=== PATIENT | female | born 1960 | race Caucasian/White ===

== ENCOUNTER 2023-12-19 16:33 | Observation (INO) ==
--- NOTE | 2023-12-19 17:28 | Emergency Department Note ---
Impression & Plan Abdominal pain, Metastasis from pancreatic cancer ED Provider Note NAME: ADRIANA MONTES DE OCA AGE: 63 SEX: F : 1960 ARRIVES VIA: Ambulance INFORMANT: Patient, ED PROVIDER(S): Anjel Rodriguez DO CHIEF COMPLAINT: Abdominal pain HPI: The patient is a 63-year-old female who presented to the emergency department for an evaluation of abdominal pain. The patient presented from her home in [place]. She has never been to our facility before. Very little history is obtained from the patient. She has been on hospice for metastatic pancreatic cancer over the course the last year. Reportedly she was sent here by her hospice nurse because she has not been receiving appropriate care at home and she needs to be admitted for pain management. The patient states that she does not want any heroic measures and claims that she is a DNR/DNI. The patient denies having any rectal bleeding. She denies having any chest pain but does complain of some shortness of breath. ROS: See above HPI for pertinent positives & negatives. A total of 10 systems reviewed and were otherwise negative. PAST MEDICAL HISTORY: See Below PAST SURGICAL HISTORY: See Below FAMILY HISTORY: See Below SOCIAL HISTORY: See Below HOME MEDICATIONS: See Below ALLERGIES: See Below VITALS: See Below PHYSICAL EXAMINATION: GENERAL: The patient is listless and slow to answer questions. She does not appear to be uncomfortable. EYES: The conjunctivae are clear. The pupils are round and reactive. EARS, NOSE, MOUTH AND THROAT: The nose is without any evidence of any deformity. Mucous membranes are dry. NECK: The neck is nontender and supple. RESPIRATORY: Diminished breath sounds are noted throughout. There is no tachypnea or conversational dyspnea. CARDIOVASCULAR: Tachycardic and regular heart sounds were noted to auscultation. There is no definite murmur. GASTROINTESTINAL: The abdomen is soft and mildly distended. There is diffuse tenderness to palpation but no guarding or rigidity. MUSCULOSKELETAL/EXTREMITIES: There is no evidence of gross deformity full range of motion is noted in the hips and shoulders. SKIN: Skin is warm. There is no significant pedal edema. NEUROLOGIC: Patient is awake and oriented to person place and situation. Strength was diminished. MEDICAL DECISION MAKING: The patient is a 63-year-old female who has a history of metastatic pancreatic cancer who presented to the emergency department for an evaluation of chronic abdominal pain. The patient has not been here before. History was very limited. She was sent here by [facility] hospice. It sounds that the patient's pain was difficult to manage. I discussed the patient's condition with the on-call [facility] hospitalist. The patient was treated with pain medication in emergency department. EKG appears to be consistent with sinus tachycardia but could be atrial flutter. I gave a dose of Cardizem to see if this would help. It did help the patient's blood pressure but her rhythm remains the same. I will defer further management of this to the admitting team. Triage Nursing notes reviewed. Prior medical records reviewed Vital Signs: reviewed and remarkable for elevated blood pressure and tachycardia. Differential diagnosis: Etiologies such as appendicitis, diverticulitis, obstruction, inflammatory bowel disease, renal colic, PUD, biliary pathology, pancreatitis, mesenteric ischemia, aortic pathology, infections, genitourinary, UTI, perforated viscus, as well as others were entertained. ER treatment provided: See below Diagnostics interpreted by me: ECG: EKG was obtained in the emergency department. My interpretation is sinus tachycardia at 143 bpm. There was no ectopy. Nonspecific ST and T wave abnormalities were noted. No previous tracing was available. Cardiac Monitoring: An order was placed for continuous cardiac monitoring. The monitor shows a rate of 142 bpm with sinus tachycardia. Laboratory studies: As stated above and show below. Imaging studies: See below. Radiographic imaging was reviewed by myself Consultation(s): I discussed this case with Dr. Potter. Past Med/Surg History Problem List (Updated 12/19/23 @ 18:32 by Anjel Rodriguez DO) Metastasis from pancreatic cancer (Acute) Abdominal pain (Acute) Medical History Pancreatic cancer Metastasis from pancreatic cancer Social History Smoking Status: Never smoker Tobacco Type: Cigarettes and E-cigarettes / Vaping Feels Safe at Home: Yes Results & Data (ED) Vital Signs Vital Signs - 24 hr 12/19/23 16:44 12/19/23 16:51 12/19/23 17:21 Temperature 36.8 C Temperature Source Oral Pulse Rate 116 H 143 H Pulse Rate [Apical] 111 H Respiratory Rate 20 24 Respiratory Effort / Characteristics Non-Labored Spontaneous Respiratory Depth Normal Normal Respiratory Pattern Regular Blood Pressure 168/116 H Blood Pressure [Left Arm] 168/116 H Blood Pressure Mean 133 Blood Pressure Mean [Left Arm] 133 Pulse Oximetry 97 99 Oxygen Delivery Method Room Air Nasal Cannula Oxygen Flow Rate 4 Sepsis Recent Fever Within 48 Hours No Sepsis New/Unexplained Change in Mental Status N/A Sepsis Action Taken by Nursing No Action Required Home Medications Current Medication List: was personally reviewed by me Administered Medications Hydromorphone HCl (Hydromorphone Inj 0.5 Mg/0.5 Ml Syr) 0.5 mg IV Q15M PRN PRN Reason: Pain Stop: 01/02/24 17:25 Last Admin: 12/19/23 18:30 Dose: 0.5 mg Documented By: ALEXEY Discontinued Medications Ondansetron HCl (Ondansetron Inj 2 Mg/Ml 2 Ml Vial) 4 mg IV NOW STA Stop: 12/19/23 17:27 Last Admin: 12/19/23 18:30 Dose: 4 mg Documented By: ALEXEY Imaging Data Attestation: I personally reviewed and interpreted this imaging study as follows: My Impression: 1 view x-ray was obtained in the emergency department. My interpretation is small left pleural effusion, final report below. Radiologist's Impression: Chest X-Ray 12/19/23 17:26 XR chest 1V portable HISTORY: Shortness of breath. COMPARISON: None. FINDINGS: No pneumothorax. There is a left jugular Port-A-Cath which terminates in the SVC. The heart is borderline enlarged. There is a small left pleural effusion and left base airspace opacities. The right lung is clear. No evidence for pulmonary edema. A drainage catheter within the left upper quadrant is noted. Bilateral total shoulder arthroplasties are present. Lucency within the upper abdomen likely represents the normal bowel loops. This will be better assessed on the same day abdomen and pelvis CT. IMPRESSION: 1. Small left pleural effusion with left basilar airspace opacities. This could represent atelectasis or a pneumonia. 2. Lucency within the upper abdomen likely represents the normal bowel loops. This will be better assessed on the same day abdomen and pelvis CT. ACT 112: Negative or not required by law. Electronically signed by: Madi Ghosh M.D. 12/19/2023 6:20 PM Discharge Plan Visit Data Chief Complaint: Abdominal Pain Stated Complaint: DECLINE IN HEALTH, COMFORT MEASURES ED Provider: Anjel Rodriguez Discharge Problem: Abdominal pain, Metastasis from pancreatic cancer Patient Disposition: Being Evaluated by Hospitalist Forms Stand Alone Forms: [facility] Referrals Referrals: PCP,NO [Physician] - Discharge Problem: Abdominal pain Qualifiers: Abdominal location: unspecified location Qualified Code(s): R10.9 - Unspecified abdominal pain
--- NOTE | 2023-12-19 18:21 | XRay Report ---
XR chest 1V portable HISTORY: Shortness of breath. COMPARISON: None. FINDINGS: No pneumothorax. There is a left jugular Port-A-Cath which terminates in the SVC. The heart is borderline enlarged. There is a small left pleural effusion and left base airspace opacities. The right lung is clear. No evidence for pulmonary edema. A drainage catheter within the left upper quad rant is noted. Bilateral total shoulder arthroplasties are present. Lucency within the upper abdomen likely represents the normal bowel loops. This will be better assessed on the same day abdomen and pe lvis CT. IMPRESSION: 1. Small left pleural effusion with left basilar airspace opacities. This could represent atelectasis or a pneumonia. 2. Lucency within the upper abdomen likely represents the normal bowel loops. This will be better ass essed on the same day abdomen and pelvis CT. ACT 112: Negative or not required by law. Electronically signed by: Madi Ghosh M.D. 12/19/2023 6:20 PM
--- NOTE | 2023-12-19 18:22 | History & Physical Report ---
Date of Service December 19, 2023 Assessment & Plan (1) Pancreatic cancer: Plan: diagnosed about 1 year ago - was previously on chemotherapy - percutaneous tube placed 3-4 weeks ago for drainage of pancreatic cancer cyst home medications for pain/nausea management include the following: - dilaudid 4mg q2 - fentanyl patch 50mcg q72h - zofran 8mg TID prn - Haldol 1mg q4 prn if zofran not effective for nausea Patient here as a comfort admit - continue pain, nausea, and diarrhea medications as needed - continuing BP, cardiac, and COPD meds for now for pt's comfort Pastoral care ordered. Plan to reach out to Dr. Rojas Garcia, pt's PCP, to update him on pt's condition and situation. (2) Metastasis from pancreatic cancer: Plan: see above (3) COPD (chronic obstructive pulmonary disease): Plan: 50-year cigarette smoking history up to present home meds include: - DuoNebs 3mL QID - dexamethasone 2mg QD - Flonase 1 spray QD - Stiolto Respimat (tiotropium bromide - olodaterol) 2.5mcg-2.5mcg, 2 puffs daily (4) History of MT (myocardial infarction): Plan: first in 2019, stent placed - second in 2022, 4 additional stents placed per patient history home meds include: - rosuvastatin 20mg QD - discontinuing - carvedilol 3.125mg BID - isosorbide mononitrate ER 30mg QD - ranolazine ER 500mg BID - losartan 25mg QD (5) Diarrhea: Plan: home meds include: - miralax 17mg QD - milk of magnesia 5mL prn - hyoscyamine 0.125mg q4 - senna 17.2mg QD (6) Cancer related pain: (7) Admission for hospice care: Plan code status: DNR/DNI VTE prophylaxis: none per hospice and comfort admit status labs: not ordering per hospice and comfort admit status diet: regular, soft and bite-sized output: purewick for urine, diaper for BM dispo: TBD History of Present Illness Chief Complaint: abdominal pain Primary Care Provider: MD Aliyah Mason, preferred name "LINK", is a 63yo female with history of pancreatic cancer on home hospice, past MT, and COPD who was taken here BIBEMS called by hospice nurse out of concern that pt is not receiving adequate pain meds or care at home. States she has two daughters but one is currently in [place] and the other lives in [place], patient was not willing to provide their contact information at this time. Pt receives hosp[facility] care from [facility]. States no one comes to visit her at home anymore, and the last time she had a meal was a day and a half ago. Endorses her appetite has been down for months but feels like she may be able to eat something tonight. Endorses she was diagnosed with pancreatic cancer about a year ago and was previously on chemotherapy, unable to recall any drug names. Notes she also had a "pancreatic cancer cyst" for which a drain in her abdomen was placed about 3-4 weeks ago. States she had a heart attack in 2020 in which a stent was placed, and then again in 2022 in which 4 more stents were placed. Patient was seen and examined at bedside, appearing tired with eyes nearly closed, and uncomfortable with intermittent moaning. Prefers to have lights dim due to light sensitivity. BP and heart rate elevated, other vital signs WNL, on 10L/min via neb. Patient was alert and oriented to name, date of , place "[facility]", and time of year "November." Patient was able to open her eyes on command, fair eye contact, able to track movement well with her eyes. Endorses abdominal pain and lower back pain, as well as shortness of breath but not more than usual for her. Also notes feeling cold despite being bundled up in blankets States her last bowel movement was yesterday, soft but not diarrhea, denies blood. Endorses she is able to urinate without issue. Able to ambulate on her own. Denies any recent fever, current headache, dizziness, nausea, recent vomiting, cough, chest pain, diarrhea, constipation. Allergies Allergy/AdvReac Type Severity Reaction Status Date / Time aripiprazole Allergy Unknown Verified 12/19/23 20:06 atorvastatin Allergy Unknown Verified 12/19/23 20:06 diazepam Allergy Unknown Verified 12/19/23 20:06 duloxetine [From Cymbalta] Allergy Unknown Verified 12/19/23 20:07 fluoxetine Allergy Unknown Verified 12/19/23 20:06 latex Allergy Unknown Verified 12/19/23 20:06 montelukast Allergy Unknown Verified 12/19/23 20:06 nickel Allergy Unknown Verified 12/19/23 20:06 paroxetine Allergy Unknown Verified 12/19/23 20:06 sertraline Allergy Unknown Verified 12/19/23 20:06 thyroid, pork Allergy Unknown Verified 12/19/23 20:06 varenicline [From Chantix] Allergy Unknown Verified 12/19/23 20:07 Home Medications Medication Instructions Recorded Confirmed Type albuterol sulfate 2.5 mg/3 mL 2.5 mg Q4H 12/19/23 12/19/23 History (0.083 %) solution for nebulization albuterol sulfate 90 mcg/actuation 2 puff inhalation Q4H 12/19/23 12/19/23 History aerosol inhaler carvedilol 3.125 mg tablet 3.125 mg BIDM 12/19/23 12/19/23 History dexamethasone 2 mg tablet 2 mg PO QAM 12/19/23 12/19/23 History fentanyl 50 mcg/hr transdermal 50 mcg transdermal Q72H 12/19/23 12/19/23 History patch haloperidol lactate 2 mg/mL oral 1 mg Q4H 12/19/23 12/19/23 History concentrate hydromorphone 4 mg tablet 4 mg Q2H PRN Pain 12/19/23 12/19/23 History hyoscyamine sulfate 0.125 mg tablet 0.125 mg sublingual Q4H PRN 12/19/23 12/19/23 History Diarrhea lorazepam 1 mg tablet 0.5 mg Q4H PRN 12/19/23 12/19/23 History restlessness/insomnia losartan 25 mg tablet 25 mg QAM 12/19/23 12/19/23 History magnesium hydroxide 400 mg/5 mL 30 ml PO DAILY PRN severe 12/19/23 12/19/23 History oral suspension (Milk of Magnesia) constipation ondansetron HCl 8 mg tablet 8 mg BIDWMEAL 12/19/23 12/19/23 History ranolazine 500 mg tablet,extended 500 mg PO BID 12/19/23 12/19/23 History release,12 hr rosuvastatin 20 mg tablet 20 mg DAILY 12/19/23 12/19/23 History sennosides 8.6 mg-docusate sodium 2 tab PO BID PRN Constipation 12/19/23 12/19/23 History 50 mg tablet (Stimulant Laxative Plus) tiotropium 2.5 mcg-olodaterol 2.5 2 puff inhalation DAILY 12/19/23 12/19/23 History mcg/actuation mist for inhalation (Stiolto Respimat) Past Med/Surg History Problem List (Updated 12/20/23 @ 11:19 by Peter Potter MD) Admission for hospice care Cancer related pain Hyperlipidemia Diarrhea History of MT (myocardial infarction) COPD (chronic obstructive pulmonary disease) Metastasis from pancreatic cancer (Acute) Abdominal pain (Acute) Medical History (Updated 12/20/23 @ 11:19 by Peter Potter MD) Hepatitis C Hepatitis B Arthritis Bipolar disorder Anemia Peritoneal abscess Pancreatic cancer Metastasis from pancreatic cancer Surgical History (Updated 12/19/23 @ 21:45 by Jasen Burris DO) H/O: hysterectomy H/O section x2 Social History (Updated 12/19/23 @ 19:35 by Jasen Burris DO) Smoking Status: Smoker, status unknown Tobacco Type: Cigarettes and E-cigarettes / Vaping Preferred Language: Czech Communication Ability: Effective Food Expeditor Required: No Beliefs That Will Affect Care: None Current Living Situation: Alone Feels Safe at Home: Yes Review of Systems Review of Systems: per HPI Physical Exam Physical Exam: constitutional: A&Ox3, appearing in moderate distress and tired HEENT: anicteric sclerae, EOM intact cardiovascular: tachycardic regular rhythm, no murmurs heard on auscultation pulmonary: generalized wheezing and coarse breath sounds, mild crackles in left lower lung base GI: medial LUQ abdominal tube with bag, draining brown fluid; hyperactive bowel sounds, tender to palpation of RUQ, epigastric region, LUQ, and LLQ; no guarding or rebound, negative Mayes's sign skin: no rashes or lesions on inspection neuro/MSK: strength 5/5 all extremities, no extremity sensation deficits Results & Data Results & Data Vital Signs (Past 12 Hours) Vital Signs Temp Pulse Pulse Resp BP BP Pulse Ox 12/19/23 17:21 143 H 12/19/23 16:51 111 H 24 168/116 H 99 12/19/23 16:44 36.8 C 116 H 20 168/116 H 97 O2 Del Method O2 Flow Rate 12/19/23 17:21 12/19/23 16:51 Nasal Cannula 4 12/19/23 16:44 Room Air Laboratory Results none to report Diagnostic Findings Chest X-Ray 12/19/23 17:26 HISTORY: Shortness of breath. COMPARISON: None. FINDINGS: No pneumothorax. There is a left jugular Port-A-Cath which terminates in the SVC. The heart is borderline enlarged. There is a small left pleural effusion and left base airspace opacities. The right lung is clear. No evidence for pulmonary edema. A drainage catheter within the left upper quadrant is noted. Bilateral total shoulder arthroplasties are present. Lucency within the upper abdomen likely represents the normal bowel loops. This will be better assessed on the same day abdomen and pelvis CT. IMPRESSION: 1. Small left pleural effusion with left basilar airspace opacities. This could represent atelectasis or a pneumonia. 2. Lucency within the upper abdomen likely represents the normal bowel loops. This will be better assessed on the same day abdomen and pelvis CT. Medications Administered Hydromorphone HCl (Hydromorphone Inj 0.5 Mg/0.5 Ml Syr) 0.5 mg IV Q15M PRN PRN Reason: Pain Stop: 01/02/24 17:25 Last Admin: 12/19/23 21:11 Dose: 0.5 mg Documented By: Admin: 12/19/23 18:30 Dose: 0.5 mg Documented By: ALEXEY Zofran 4mg IV, 18:30 NS bolus, 18:45 diltiazem 10mg IV, 18:45 Albuterol 3mL 21:12 Code Status & VTE Plan Code Status DNR/DNI VTE Prophylaxis Plan VTE Prophylaxis will be ordered: No Reason for no VTE drug order: Treatment not indicated Reason for no VTE mechanical prophylaxis: Treatment not indicated Supervising Physician Co-Signing Physician Notes I personally saw and examined the patient. I independently reviewed the labs, imaging, problem list, medication list, past medical history and family history. I verified all pak points and agree with resident physician Dr Jasen Burris, with the following exceptions and/or additions: 63 year old female presents to the ER via EMS sent in by hospice for hospice admission for pain control as unable to get this under control at home despite Fentanyl patch and hydromorphone PO. On discussion with the hospice nurse over the phone he is unsure why she was sent here rather than [place] were she has had all of her care. O/E HS tachycardic, regular rhythm, Chest CTAB, generalized abdominal pain on palpation with distended abdomen A/P Cancer related pain and admission for hospice care - discussed with hospice nurse, patient and her daughter (Maria G) over the phone regarding goals and plan is for comfort care only, no investigations or labs. Consult palliative. Start Dilaudid [employer] pump. Other comfort care orders for nausea, agitation as above Resident Activity Tracking Resident Involvement: Resident Care Provided Care Provided: Adult [facility] Medicine (1) Pancreatic cancer Pancreatic malignancy location: unspecified Qualified Code(s): C25.9 - Malignant neoplasm of pancreas, unspecified (3) COPD (chronic obstructive pulmonary disease) COPD type: unspecified COPD Qualified Code(s): J44.9 - Chronic obstructive pulmonary disease, unspecified (5) Diarrhea Diarrhea type: unspecified type Qualified Code(s): R19.7 - Diarrhea, unspecified
[2023-12-19] MEDS: ONDANSETRON INJ 2 MG/ML 2 ML VIAL IV STA (18:30)
[2023-12-19] MEDS: HYDROmorphone INJ 0.5 MG/0.5 ML SYR IV PRN (18:30)
[2023-12-19] MEDS: SODIUM CHLORIDE 0.9% 1,000 ML IV STA (18:46)
[2023-12-19] MEDS: dilTIAZem HCl 5 MG/ML 5 ML VIAL IV STA (18:46)
[2023-12-19] MEDS ORDERED: ONDANSETRON INJ 2 MG/ML 2 ML VIAL IV PRN (20:26)
[2023-12-19] MEDS ORDERED: PROMETHAZINE HCL 25 MG TAB PO PRN (20:26)
[2023-12-19] MEDS ORDERED: HALOPERIDOL ORAL SOLN 2 MG/ML PO PRN (20:26)
[2023-12-19] MEDS ORDERED: HYOSCYAMINE SULFATE 0.125 MG TAB SL PRN ×2 (20:26→21:27)
[2023-12-19] MEDS: ALBUT/IPRATROP 3MG/0.5MG NEB 3 ML VIAL NEB STA (21:12)
[2023-12-19] MEDS ORDERED: DOCUSATE SODIUM/SENNA 50/8.6MG TAB PO PRN (21:27)
[2023-12-19] MEDS ORDERED: LORazepam 0.5 MG TAB PO PRN (21:27)
[2023-12-19] MEDS ORDERED: MAGNESIUM HYDROXIDE SUSP 30 ML UDC PO PRN (21:27)
[2023-12-19] MEDS ORDERED: HALOPERIDOL ORAL SOLN 2 MG/ML PO SCH (21:30)
[2023-12-19] MEDS: LORazepam 0.5 MG TAB PO PRN (23:45)
[2023-12-20] MEDS: HYDROmorphone INJ 0.5 MG/0.5 ML SYR IV PRN (00:12)
[2023-12-20] MEDS: ALBUTEROL 0.083% NEBU SOLN 3 ML VIAL NEB SCH (00:49)
[2023-12-20] MEDS ORDERED: MAGNESIUM HYDROXIDE SUSP 30 ML UDC PO PRN (00:54)
[2023-12-20] MEDS ORDERED: ACETAMINOPHEN 325 MG TAB PO PRN (00:54)
[2023-12-20] MEDS ORDERED: POLYETHYLENE (MIRALAX) 17 GM PACK PO PRN (00:54)
[2023-12-20] MEDS: HYDROmorphone/NSS 100 MG/100 ML BAG IV SCH (01:02)
[2023-12-20] MEDS: fentaNYL 50 MCG/HR TDSY TD ONE (01:02)
[2023-12-20 03:51] VITALS: TEMP 97.5
[2023-12-20 03:58] VITALS: RESP 18
[2023-12-20 07:24] VITALS: BP 130/91
[2023-12-20] MEDS: HYDROmorphone BOLUS from BAG IV PRN (07:30)
[2023-12-20] MEDS: CHECK fentaNYL PATCH PLACEMENT SCH (08:25)
[2023-12-20] MEDS: UMECLIDINIUM/VILANTEROL 62.5/25MCG 7 PUFFS/INHALER INH SCH (08:26)
[2023-12-20] MEDS: carvediloL 3.125 MG TAB PO SCH (08:27)
[2023-12-20] MEDS: dexAMETHasone 1 MG TAB PO SCH (08:27)
[2023-12-20] MEDS: RANOLAZINE 500 MG ER TAB PO SCH (08:27)
[2023-12-20] MEDS: LOSARTAN POTASSIUM 25 MG TAB PO SCH (08:27)
[2023-12-20] MEDS ORDERED: ROSUVASTATIN CALCIUM 20 MG TAB PO SCH (09:00)
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
--- NOTE | 2023-12-20 11:26 | Billing Data ---
Date of Service December 19, 2023 Coding Level of Care Code 49141 INT INP/OBS CARE
--- NOTE | 2023-12-20 12:16 | Electrocardiogram Report ---
Test Reason : Blood Pressure : */* mmHG Vent. Rate : 143 BPM Atrial Rate : 143 BPM P-R Int : 118 ms QRS Dur : 102 ms QT Int : 264 ms P-R-T Axes : 81 37 90 degrees QTcB Int : 407 ms Atrial flutter with 2 to 1 block Nonspecific T wave abnormality Abnormal ECG No previous ECGs available Confirmed by Aubrey Anderson ([id number]) on 12/20/2023 12:15:35 PM Referred By: REFERRED SELF Confirmed By: Aubrey Anderson
--- NOTE | 2023-12-20 13:46 | Hospitalist Progress Note ---
Date of Service December 20, 2023 Assessment & Plan (1) Pancreatic cancer: (2) Metastasis from pancreatic cancer: Plan: see above (3) COPD (chronic obstructive pulmonary disease): (4) History of AK (myocardial infarction): (5) Diarrhea: Plan 63 year old female presents to the ER via EMS sent in by hospice for hospice admission for pain control as unable to get this under control at home despite Fentanyl patch and hydromorphone PO. Referred here by Dr. Hoffmann since she lives alone and has no local support and concern about not able to care for self in regards to medication self dispensing. Cancer related pain and admission for hospice care - Dr. Potter discussed with hospice nurse, patient and her daughter (Maria G) over the phone regarding goals and plan is for comfort care only, no investigations or labs. -Continue dilaudid pump. Continue home fentanyl patch 50mcg. -Palliative consulted - will follow recommendations. -continue zofran 8mgs TID prn for nausea, Haldol 1mg prn if zofran not effective. -Continue miralax 17mg QD; milk of magnesia 5mL prn; hyoscyamine 0.125mg q4; senna 17.2mg QD -Will discuss with palliative care regarding d/cing dexamethasone 2mg QD Pancreatic ca diagnosed about 1 year ago -was previously on chemotherapy -percutaneous tube placed 3-4 weeks ago for drainage of pancreatic cancer cyst COPD/AR - DuoNebs 3mL QID - Flonase 1 spray QD - Stiolto Respimat (tiotropium bromide - olodaterol) 2.5mcg-2.5mcg, 2 puffs daily CAD/AK -Will discuss with palliative care team regarding discontinuing home meds carvedilol 3.125mg BID, ranolazine ER 500mg BID, losartan 25mg QD diet: regular, soft and bite-sized output: purewick for urine, diaper for BM Admission and Anticipated Discharge Date Admission Date: December 19, 2023 Subjective Seen this am. Reporting 8/10 pain. Per nursing hasn't slept at all Hungry this am and food order - Tray brought into the room and she was starting to eat at the time of my visit. Physical Exam Physical Exam: In bed. AAOx3; No resp distress. Eating her meal and conversing appropriately. Results & Data Results & Data Vital Signs (Past 12 Hours) Vital Signs Pulse Resp BP Pulse Ox O2 Del Method O2 Flow Rate 12/20/23 11:25 142 H 18 93 Room Air 12/20/23 07:30 Nasal Cannula 4 12/20/23 07:22 151 H 130/91 99 Nasal Cannula 4 12/20/23 04:05 Nasal Cannula 4 12/20/23 03:57 18 100 Nasal Cannula 5 (1) Pancreatic cancer Pancreatic malignancy location: unspecified Qualified Code(s): C25.9 - Mal[place] nant neoplasm of pancreas, unspecified (3) COPD (chronic obstructive pulmonary disease) COPD type: unspecified COPD Qualified Code(s): J44.9 - Chronic obstructive pulmonary disease, unspecified (5) Diarrhea Diarrhea type: unspecified type Qualified Code(s): R19.7 - Diarrhea, unspecified
[2023-12-20 14:37] VITALS: PULSE 100; O2SAT 94
[2023-12-20] MEDS ORDERED: HALOPERIDOL ORAL SOLN 2 MG/ML PO PRN (14:40)
[2023-12-20] MEDS ORDERED: HYDROmorphone BOLUS from BAG IV PRN (14:40)
--- NOTE | 2023-12-20 15:01 | Discharge Summary ---
Date of Service December 20, 2023 Admission HPI Per Admitting Provider Aliyah Lewis, preferred name "LINK", is a 63yo female with history of pancreatic cancer on home hospice, past OK, and COPD who was taken here BIBEMS called by hospice nurse out of concern that pt is not receiving adequate pain meds or care at home. States she has two daughters but one is currently in [place] and the other lives in [place], patient was not willing to provide their contact information at this time. Pt receives hospice care from [facility]. States no one comes to visit her at home anymore, and the last time she had a meal was a day and a half ago. Endorses her appetite has been down for months but feels like she may be able to eat something tonight. Endorses she was diagnosed with pancreatic cancer about a year ago and was previously on chemotherapy, unable to recall any drug names. Notes she also had a "pancreatic cancer cyst" for which a drain in her abdomen was placed about 3-4 weeks ago. States she had a heart attack in 2020 in which a stent was placed, and then again in 2022 in which 4 more stents were placed. Patient was seen and examined at bedside, appearing tired with eyes nearly closed, and uncomfortable with intermittent moaning. Prefers to have lights dim due to light sensitivity. BP and heart rate elevated, other vital signs WNL, on 10L/min via neb. Patient was alert and oriented to name, date of , place "[facility]", and time of year "November." Patient was able to open her eyes on command, fair eye contact, able to track movement well with her eyes. Endorses abdominal pain and lower back pain, as well as shortness of breath but not more than usual for her. Also notes feeling cold despite being bundled up in blankets States her last bowel movement was yesterday, soft but not diarrhea, denies blood. Endorses she is able to urinate without issue. Able to ambulate on her own. Denies any recent fever, current headache, dizziness, nausea, recent vomiting, cough, chest pain, diarrhea, constipation. Principal Diagnosis Pancreatic cancer Intractable uncontrolled pain Discharge Exam In bed. AAOx3; No resp distress. Eating her meal and conversing appropriately. Discharge Data Allergies Allergy/AdvReac Type Severity Reaction Status Date / Time aripiprazole Allergy Unknown Verified 12/19/23 20:06 atorvastatin Allergy Unknown Verified 12/19/23 20:06 diazepam Allergy Unknown Verified 12/19/23 20:06 duloxetine [From Cymbalta] Allergy Unknown Verified 12/19/23 20:07 fluoxetine Allergy Unknown Verified 12/19/23 20:06 latex Allergy Unknown Verified 12/19/23 20:06 montelukast Allergy Unknown Verified 12/19/23 20:06 nickel Allergy Unknown Verified 12/19/23 20:06 paroxetine Allergy Unknown Verified 12/19/23 20:06 sertraline Allergy Unknown Verified 12/19/23 20:06 thyroid, pork Allergy Unknown Verified 12/19/23 20:06 varenicline [From Chantix] Allergy Unknown Verified 12/19/23 20:07 Consultations 12/19/23 17:56 ED Decision to Admit Stat 12/20/23 00:54 Consult Palliative Care Routine Hospital Course (1) Pancreatic cancer: (2) Metastasis from pancreatic cancer: (3) COPD (chronic obstructive pulmonary disease): (4) History of OK (myocardial infarction): (5) Diarrhea: Plan 63 y/o (Goes by [facility]) presents to the ER via EMS sent in by hospice for hospice admission for pain control as unable to get this under control at home despite Fentanyl patch and hydromorphone PO. Referred here by Dr. Hoffmann since she lives alone and has no local support and concern about not able to care for self in regards to medication self dispensing. Cancer related pain and admission for hospice care - Dr. Potter discussed with hospice nurse, patient and her daughter (Maria G) over the phone regarding goals and plan is for comfort care only, no investigations or labs. -Continue dilaudid pump. Continue home fentanyl patch 50mcg. -continue zofran 8mgs TID prn for nausea, Haldol 1mg prn if zofran not effective. -Continue miralax 17mg QD; milk of magnesia 5mL prn; hyoscyamine 0.125mg q4; senna 17.2mg QD -Palliative consulted - discussed and discussed with case management - will discharge from inpatient service and admit to inpatient hospice service. -Dilaudid drip dose increased to 2.3 - will resume this dose with GIP admit. Pancreatic ca diagnosed about 1 year ago -was previously on chemotherapy -percutaneous tube placed 3-4 weeks ago for drainage of pancreatic cancer cyst COPD/AR - DuoNebs 3mL QID - Flonase 1 spray QD - Stiolto Respimat (tiotropium bromide - olodaterol) 2.5mcg-2.5mcg, 2 puffs daily CAD/OK -continue home meds carvedilol 3.125mg BID, ranolazine ER 500mg BID, losartan 25mg QD diet: regular, soft and bite-sized output: purewick for urine, diaper for BM Total Time Total Time Spent Total Time Spent (In Minutes): 30 Discharge Plan Discharge Items Patient Disposition: Transfer Acute Care Hospital Reason For Visit: PANCREATIC CANCER,INADEQUATE PAIN MANAGEMENT AT HO Discharge Diagnosis: Pancreatic cancer, uncontrolled pain Activity: Resume your previous activity Non-emergency contact: Primary Care Provider Call non-emergency contact if: you have any medication questions Follow-up/Referrals: Rojas Garcia MD [Primary Care Provider] - Diet: Regular Addtl Attending Provider Instructions: Discharging from inpatient service to admit to General Inpatient Hospice service. Pending Studies at Discharge: No Stand-Alone Forms: [employer] Skilled Items Patient informed of condition?: Yes DNR: Yes Discharge Level of Care: Other Communicable Disease: No Discharge Prognosis: Deteriorating Lines: Peripheral IV Urinary Catheter: No Medications and DC Order Prescriptions: Continued fentanyl 50 mcg/hr patch 72 hour 50 mcg transdermal Q72H albuterol sulfate 2.5 mg /3 mL (0.083 %) solution for nebulization 2.5 mg Q4H ondansetron HCl 8 mg tablet 8 mg BIDWMEAL sennosides-docusate sodium [Stimulant Laxative Plus] 8.6-50 mg tablet 2 tab PO BID PRN (Reason: Constipation) carvedilol 3.125 mg tablet 3.125 mg BIDM magnesium hydroxide [Milk of Magnesia] 400 mg/5 mL suspension 30 ml PO DAILY PRN (Reason: severe constipation) hyoscyamine sulfate 0.125 mg tablet 0.125 mg sublingual Q4H PRN (Reason: Diarrhea) losartan 25 mg tablet 25 mg QAM lorazepam 1 mg tablet 0.5 mg Q4H PRN (Reason: restlessness/insomnia) albuterol sulfate 90 mcg/actuation HFA aerosol inhaler 2 puff INHALATION Q4H hydromorphone 4 mg tablet 4 mg Q2H PRN (Reason: Pain) haloperidol lactate 2 mg/mL concentrate 1 mg Q4H ranolazine 500 mg tablet extended release 12 hr 500 mg PO BID Stiolto Respimat 2.5-2.5 mcg/actuation mist 2 puff INHALATION DAILY dexamethasone 2 mg tablet 2 mg PO QAM Discontinued rosuvastatin 20 mg tablet 20 mg DAILY Discharge Orders: Discharge Order (Routine); Ordered 12/20/23 Ordered By: Mile Valle Admission Data Admit Date/Time: 12/19/23 20:03 Attending Provider: Mile Valle Admit Provider: Jasen Burris V. Primary Care Provider: Rojas Garcia Other Providers: Peter Potter; Kristyn Marks
[2023-12-22] MEDS ORDERED: fentaNYL 50 MCG/HR TDSY TD SCH (21:00)
== END 2023-12-20 16:02 | disposition hospice, inpatient (51) ==
LOC: SUATTDRO → ED 16:33 → 3E 20:03 → INTOOBSV 20:03 → SUATTDRO 20:03 → 3E 12-20 00:08

== ENCOUNTER 2023-12-20 15:30 | Inpatient (IN) ==
[2023-12-20] MEDS ORDERED: ALUMINUM/MAGNESIUM SUSP 30 ML UDC PO PRN (15:56)
[2023-12-20] MEDS ORDERED: HYOSCYAMINE SULFATE 0.125 MG TAB SL PRN (16:06)
[2023-12-20] MEDS ORDERED: MAGNESIUM HYDROXIDE SUSP 30 ML UDC PO PRN (16:06)
[2023-12-20] MEDS ORDERED: HYDROmorphone BOLUS from BAG IV PRN (16:10)
--- NOTE | 2023-12-20 16:21 | History & Physical Report ---
Date of Service December 20, 2023 Assessment & Plan (1) Admission for hospice care: (2) Cancer related pain: (3) Metastasis from pancreatic cancer: (4) Abdominal pain: (5) COPD (chronic obstructive pulmonary disease): (6) History of [place] (myocardial infarction): (7) Bipolar disorder: Plan 63 y/o (Goes by [facility]INK) presents to the ER via EMS sent in by hospice for hospice admission for pain control as unable to get this under control at home despite Fentanyl patch and hydromorphone PO. Referred here by Dr. Hoffmann since she lives alone and has no local support and concern about not able to care for self in regards to medication self dispensing. Cancer related pain and admission for hospice care - -Continue dilaudid pump. Continue home fentanyl patch 50mcg. -continue zofran 8mgs TID prn for nausea, Haldol 1mg prn if zofran not effective. -Continue miralax 17mg QD; milk of magnesia 5mL prn; hyoscyamine 0.125mg q4; senna 17.2mg QD -Palliative consulted -Continue Dilaudid drip at 2.3. Pancreatic ca diagnosed about 1 year ago -was previously on chemotherapy -percutaneous tube placed 3-4 weeks ago for drainage of pancreatic cancer cyst COPD/AR -DuoNebs 3mL QID -Flonase 1 spray QD -Stiolto Respimat (tiotropium bromide - olodaterol) 2.5mcg-2.5mcg, 2 puffs daily CAD/[place] -continue home meds carvedilol 3.125mg BID, ranolazine ER 500mg BID, losartan 25mg QD Bipolar ds - listed in problem list. Not on any mood stabilizer. Follow. diet: regular, soft and bite-sized output: purewick for urine, diaper for BM Admission and Anticipated Discharge Date Admission Date: December 20, 2023 History of Present Illness Chief Complaint: Intractable pain Primary Care Provider: Rojas Garcia MD 63 y/o (Goes by [facility]) presents to the ER via EMS sent in by hospice for hospice admission for pain control as unable to get this under control at home despite Fentanyl patch and hydromorphone PO. Referred here by Dr. Hoffmann since she lives alone and has no local support and concern about not able to care for self in regards to medication self dispensing. Please refer to detailed HPI from inpatient admission 12/18 below- Aliyah Lewis, preferred name "LINK", is a 63yo female with history of pancreatic cancer on home hospice, past IA, and COPD who was taken here BIBEMS called by hospice nurse out of concern that pt is not receiving adequate pain meds or care at home. States she has two daughters but one is currently in [place] and the other lives in [place], patient was not willing to provide their contact information at this time. Pt receives hosp[facility] care from [facility]. States no one comes to visit her at home anymore, and the last time she had a meal was a day and a half ago. Endorses her appetite has been down for months but feels like she may be able to eat something tonight. Endorses she was diagnosed with pancreatic cancer about a year ago and was previously on chemotherapy, unable to recall any drug names. Notes she also had a "pancreatic cancer cyst" for which a drain in her abdomen was placed about 3-4 weeks ago. States she had a heart attack in 2020 in which a stent was placed, and then again in 2022 in which 4 more stents were placed. Patient was seen and examined at bedside, appearing tired with eyes nearly closed, and uncomfortable with intermittent moaning. Prefers to have lights dim due to light sensitivity. BP and heart rate elevated, other vital signs WNL, on 10L/min via neb. Patient was alert and oriented to name, date of , place "[facility]", and time of year "November." Patient was able to open her eyes on command, fair eye contact, able to track movement well with her eyes. Endorses abdominal pain and lower back pain, as well as shortness of breath but not more than usual for her. Also notes feeling cold despite being bundled up in blankets States her last bowel movement was yesterday, soft but not diarrhea, denies blood. Endorses she is able to urinate without issue. Able to ambulate on her own. Denies any recent fever, current headache, dizziness, nausea, recent vomiting, cough, chest pain, diarrhea, constipation. Allergies Allergy/AdvReac Type Severity Reaction Status Date / Time aripiprazole Allergy Unknown Verified 12/19/23 20:06 atorvastatin Allergy Unknown Verified 12/19/23 20:06 diazepam Allergy Unknown Verified 12/19/23 20:06 duloxetine [From Cymbalta] Allergy Unknown Verified 12/19/23 20:07 fluoxetine Allergy Unknown Verified 12/19/23 20:06 latex Allergy Unknown Verified 12/19/23 20:06 montelukast Allergy Unknown Verified 12/19/23 20:06 nickel Allergy Unknown Verified 12/19/23 20:06 paroxetine Allergy Unknown Verified 12/19/23 20:06 sertraline Allergy Unknown Verified 12/19/23 20:06 thyroid, pork Allergy Unknown Verified 12/19/23 20:06 varenicline [From Chantix] Allergy Unknown Verified 12/19/23 20:07 Home Medications Medication Instructions Recorded Confirmed Type albuterol sulfate 2.5 mg/3 mL 2.5 mg Q4H 12/19/23 12/20/23 History (0.083 %) solution for nebulization albuterol sulfate 90 mcg/actuation 2 puff inhalation Q4H 12/19/23 12/20/23 History aerosol inhaler carvedilol 3.125 mg tablet 3.125 mg BIDM 12/19/23 12/20/23 History dexamethasone 2 mg tablet 2 mg PO QAM 12/19/23 12/20/23 History fentanyl 50 mcg/hr transdermal 50 mcg transdermal Q72H 12/19/23 12/20/23 History patch haloperidol lactate 2 mg/mL oral 1 mg Q4H 12/19/23 12/20/23 History concentrate hydromorphone 4 mg tablet 4 mg Q2H PRN Pain 12/19/23 12/20/23 History hyoscyamine sulfate 0.125 mg tablet 0.125 mg sublingual Q4H PRN 12/19/23 12/20/23 History Diarrhea lorazepam 1 mg tablet 0.5 mg Q4H PRN 12/19/23 12/20/23 History restlessness/insomnia losartan 25 mg tablet 25 mg QAM 12/19/23 12/20/23 History magnesium hydroxide 400 mg/5 mL 30 ml PO DAILY PRN severe 12/19/23 12/20/23 History oral suspension (Milk of Magnesia) constipation ondansetron HCl 8 mg tablet 8 mg BIDWMEAL 12/19/23 12/20/23 History ranolazine 500 mg tablet,extended 500 mg PO BID 12/19/23 12/20/23 History release,12 hr sennosides 8.6 mg-docusate sodium 2 tab PO BID PRN Constipation 12/19/23 12/20/23 History 50 mg tablet (Stimulant Laxative Plus) tiotropium 2.5 mcg-olodaterol 2.5 2 puff inhalation DAILY 12/19/23 12/20/23 History mcg/actuation mist for inhalation (Stiolto Respimat) Past Med/Surg History Problem List (Updated 12/20/23 @ 17:09 by Mile Valle MD) Bipolar disorder Refractory nausea and vomiting Dyspnea and respiratory abnormalities Palliative care by specialist Encounter for hospice care discussion Advanced care planning/counseling discussion Encounter for end of life care Admission for hospice care Cancer related pain Hyperlipidemia Diarrhea History of IA (myocardial infarction) COPD (chronic obstructive pulmonary disease) Metastasis from pancreatic cancer (Acute) Abdominal pain (Acute) Medical History Hepatitis C Hepatitis B Arthritis Bipolar disorder Anemia Peritoneal abscess Pancreatic cancer Metastasis from pancreatic cancer Surgical History H/O: hysterectomy H/O section x2 Social History Smoking Status: Smoker, status unknown Tobacco Type: Cigarettes and E-cigarettes / Vaping Preferred Language: [place] Communication Ability: Effective Wildlife Technician Required: No Beliefs That Will Affect Care: None Current Living Situation: Alone Feels Safe at Home: Yes Physical Exam Constitutional: WD/WN, vitals as above Eyes: Pupils equal. ENMT: mucous membrane moist Neck: Supple Respiratory: No respiratory distress. CTA Cardiovascular: RRR Gastrointestinal (Abdomen): Soft, diffuse tendernes Psychiatric: AAOx3 Code Status & VTE Plan VTE Prophylaxis Plan VTE Prophylaxis will be ordered: Yes Reason for no VTE drug order: Treatment not indicated (4) Abdominal pain Abdominal location: unspecified location Qualified Code(s): R10.9 - Unspecified abdominal pain (5) COPD (chronic obstructive pulmonary disease) COPD type: unspecified COPD Qualified Code(s): J44.9 - Chronic obstructive pulmonary disease, unspecified
[2023-12-20] MEDS: HYDROmorphone 100 MG/100 ML BAG IV SCH (16:43)
[2023-12-20] MEDS: ONDANSETRON INJ 2 MG/ML 2 ML VIAL IV PRN (16:43)
[2023-12-20] MEDS: carvediloL 3.125 MG TAB PO SCH (16:44)
[2023-12-20] MEDS: HALOPERIDOL ORAL SOLN 2 MG/ML PO SCH (17:18)
[2023-12-20] MEDS: ALBUTEROL 0.083% NEBU SOLN 3 ML VIAL NEB SCH (19:45)
[2023-12-20] MEDS: RANOLAZINE 500 MG ER TAB PO SCH (21:56)
[2023-12-21] MEDS: CHECK fentaNYL PATCH PLACEMENT SCH (01:28)
[2023-12-21] MEDS: HYDROmorphone BOLUS from BAG IV PRN (07:28)
[2023-12-21] MEDS: dexAMETHasone 1 MG TAB PO SCH (08:06)
[2023-12-21] MEDS: LOSARTAN POTASSIUM 25 MG TAB PO SCH (08:08)
[2023-12-21] MEDS: UMECLIDINIUM/VILANTEROL 62.5/25MCG 7 PUFFS/INHALER INH SCH (08:09)
--- NOTE | 2023-12-21 15:47 | Hospitalist Progress Note ---
Date of Service December 21, 2023 Assessment & Plan (1) Admission for hospice care: (2) Cancer related pain: (3) Metastasis from pancreatic cancer: (4) Abdominal pain: (5) COPD (chronic obstructive pulmonary disease): (6) History of [place] (myocardial infarction): (7) Bipolar disorder: Plan 63 y/o (Goes by [facility]) presents to the ER via EMS sent in by hospice for hospice admission for pain control as unable to get this under control at home despite Fentanyl patch and hydromorphone PO. Referred here by Dr. Hoffmann since she lives alone and has no local support and concern about not able to care for self in regards to medication self dispensing. Cancer related pain and admission for hospice care - -Continue dilaudid pump - drip at 2.3mg/hr, bolus 0.3mg q30min. Continue home fentanyl patch 50mcg. -continue zofran 8mgs TID prn for nausea, Haldol 1mg prn if zofran not effective. -Continue miralax 17mg QD; milk of magnesia 5mL prn; hyoscyamine 0.125mg q4; senna 17.2mg QD -Palliative consulted Pancreatic ca diagnosed about 1 year ago -was previously on chemotherapy -percutaneous tube placed 3-4 weeks ago for drainage of pancreatic cancer cyst COPD/AR -DuoNebs 3mL QID -Flonase 1 spray QD -Stiolto Respimat (tiotropium bromide - olodaterol) 2.5mcg-2.5mcg, 2 puffs daily CAD/[place] -continue home meds carvedilol 3.125mg BID, ranolazine ER 500mg BID, losartan 25mg QD Bipolar ds - listed in problem list. Not on any mood stabilizer. Follow. diet: regular, soft and bite-sized output: purewick for urine, diaper for BM Admission and Anticipated Discharge Date Admission Date: December 20, 2023 Subjective Sitting in bed. No breathing difficulty. Pain is overall controlled - minimal use of bolus doses. Physical Exam Constitutional: WD/WN, vitals as above Respiratory: CTA Cardiovascular: RRR Psychiatric: AAOx3 Results & Data Results & Data Vital Signs (Past 12 Hours) Vital Signs Pulse Resp Pulse Ox O2 Del Method O2 Flow Rate 12/21/23 10:57 113 H 19 96 Nasal Cannula 3 12/21/23 07:15 Nasal Cannula 5 12/21/23 07:03 18 99 Nasal Cannula 5 (4) Abdominal pain Abdominal location: unspecified location Qualified Code(s): R10.9 - Unspecified abdominal pain (5) COPD (chronic obstructive pulmonary disease) COPD type: unspecified COPD Qualified Code(s): J44.9 - Chronic obstructive pulmonary disease, unspecified
[2023-12-21] MEDS: LORazepam 2 MG/1 ML VIAL IV SCH (17:14)
--- NOTE | 2023-12-22 15:24 | Hospitalist Progress Note ---
Date of Service December 22, 2023 Assessment & Plan (1) Admission for hospice care: (2) Cancer related pain: (3) Metastasis from pancreatic cancer: (4) Abdominal pain: (5) COPD (chronic obstructive pulmonary disease): (6) History of [place] (myocardial infarction): (7) Bipolar disorder: Plan 63 y/o (Goes by [facility]) presents to the ER via EMS sent in by hospice for hospice admission for pain control as unable to get this under control at home despite Fentanyl patch and hydromorphone PO. Referred here by Dr. Hoffmann since she lives alone and has no local support and concern about not able to care for self in regards to medication self dispensing. Cancer related pain and admission for hospice care - -Continue dilaudid pump - drip at 2.3mg/hr, bolus 0.3mg q30min. Continue home fentanyl patch 50mcg. -continue zofran 8mgs TID prn for nausea, Haldol 1mg prn if zofran not effective. -Continue miralax 17mg QD; milk of magnesia 5mL prn; hyoscyamine 0.125mg q4; senna 17.2mg QD -Palliative consulted Pancreatic ca diagnosed about 1 year ago -was previously on chemotherapy -percutaneous tube placed 3-4 weeks ago for drainage of pancreatic cancer cyst COPD/AR -DuoNebs 3mL QID prn -Flonase 1 spray QD -Stiolto Respimat (tiotropium bromide - olodaterol) 2.5mcg-2.5mcg, 2 puffs daily CAD/[place] -continue home meds carvedilol 3.125mg BID, ranolazine ER 500mg BID, losartan 25mg QD Bipolar ds - listed in problem list. Not on any mood stabilizer. Follow. Disposition/care plan - Spoke to daughter Maria G - Pain much better control. ~58mgs of Hydromorphone use/24hours. Am team will discuss and provide update if this dose of hydromorphone and overall hospice care can be provided at home/SNF. Daughter lives in [place] and [place] is closer to her. diet: regular, soft and bite-sized output: purewick for urine, diaper for BM Admission and Anticipated Discharge Date Admission Date: December 20, 2023 Subjective Sitting in bed. Daughter at bedside. No breathing difficulty. Pain is controlled with current dose of meds. Received one bolus since yesterday afternoon. Eating her meals Physical Exam Physical Exam: Easily falling asleep early in the conversation. On waking up Alert and oriented. Respiratory: No respiratory distress Results & Data Results & Data Vital Signs (Past 12 Hours) Vital Signs O2 Del Method O2 Flow Rate 12/22/23 08:00 Nasal Cannula 5 (4) Abdominal pain Abdominal location: unspecified location Qualified Code(s): R10.9 - Unspecified abdominal pain (5) COPD (chronic obstructive pulmonary disease) COPD type: unspecified COPD Qualified Code(s): J44.9 - Chronic obstructive pulmonary disease, unspecified
[2023-12-22] MEDS: fentaNYL 50 MCG/HR TDSY TD SCH (21:00)
[2023-12-23] MEDS: GLYCOPYRROLATE 0.2 MG/ML VIAL IV PRN (04:46)
--- NOTE | 2023-12-23 09:22 | Hospitalist Progress Note ---
Date of Service December 23, 2023 Assessment & Plan (1) Admission for hospice care: (2) Cancer related pain: (3) Metastasis from pancreatic cancer: (4) Abdominal pain: (5) COPD (chronic obstructive pulmonary disease): (6) History of [place] (myocardial infarction): (7) Bipolar disorder: Plan 63 y/o (Goes by [facility]) presents to the ER via EMS sent in by hospice for hospice admission for pain control as unable to get this under control at home despite Fentanyl patch and hydromorphone PO. Referred here by Dr. Hoffmann since she lives alone and has no local support and concern about not able to care for self in regards to medication self dispensing. Cancer related pain and admission for hospice care - -[facility] Hospice recommendations: -Fentanyl patch 75mg Q72hrs -Methadone 5 mg qHS - Dexamethasone 4 mg qam - Hydromorphone pump: Stop basal rate. Continue bolus 0.5 mg q30 minutes prn -continue zofran 8mgs TID prn for nausea, Haldol 1mg prn if zofran not effective. -Continue miralax 17mg QD; milk of magnesia 5mL prn; hyoscyamine 0.125mg q4; senna 17.2mg QD -Palliative consulted Pancreatic cancer diagnosed about 1 year ago -was previously on chemotherapy -percutaneous tube placed 3-4 weeks ago for drainage of pancreatic cancer cyst COPD/AR -DuoNebs 3mL QID prn -Flonase 1 spray QD -Stiolto Respimat (tiotropium bromide - olodaterol) 2.5mcg-2.5mcg, 2 puffs daily CAD/[place] -continue home meds carvedilol 3.125mg BID, ranolazine ER 500mg BID, losartan 25mg QD Bipolar ds - listed in problem list. Not on any mood stabilizer. Follow. Disposition/care plan - overall hospice care can be provided at home/SNF. [facility] hospice following her for H/h diet: regular, soft and bite-sized output: purewick for urine, diaper for BM Admission and Anticipated Discharge Date Admission Date: December 20, 2023 Supervising Physician Co-Signing Physician Notes I personally examined the patient and verified all pak points of history and exam, discussed case, and agree with decision making with Dr Markell Martinez pain under reasonable controlwas just hitting the button whenever I saw her. Vitals noted, in general she is awake and alert pleasant no distress. HEENT normocephalic atraumatic mucous membranes moist. Breathing unlabored no accessory muscle use good effort. Skin without rashes pallor or icterus. Neuro without focal deficits. Inpatient hospice for pancreatic cancer with uncontrolled pain as an outpatientcontinue IV narcotic regimen. Continue supportive care. Otherwise as above Subjective Sitting in bed. No breathing difficulty. Pain not controlled, refers 11/08. Eating her meals. [facility] hospice visit this am Review of Systems Review of Systems: as per HPI Physical Exam Physical Exam: Alert and oriented. No respiratory distress. Results & Data Results & Data Vital Signs (Past 12 Hours) Vital Signs Pulse BP Pulse Ox O2 Del Method O2 Flow Rate 12/23/23 08:18 87 146/96 H 98 Nasal Cannula 3 12/23/23 07:25 Nasal Cannula 3 Resident Activity Tracking Resident Involvement: Resident Care Provided Care Provided: Adult Hospital Medicine (4) Abdominal pain Abdominal location: unspecified location Qualified Code(s): R10.9 - Unspecified abdominal pain (5) COPD (chronic obstructive pulmonary disease) COPD type: unspecified COPD Qualified Code(s): J44.9 - Chronic obstructive pulmonary disease, unspecified
[2023-12-23] MEDS ORDERED: HYDROmorphone BOLUS from BAG IV PRN (10:50)
[2023-12-23] MEDS: fentaNYL 75 MCG/HR TDSY TD SCH (11:02)
[2023-12-23] MEDS: dexAMETHasone 4 MG TAB PO SCH (11:44)
[2023-12-23] MEDS ORDERED: NALOXONE HCL 0.4 MG/1 ML VIAL/CARP IV PRN (13:32)
[2023-12-23] MEDS: HYDROmorphone PCA 30 MG/30 ML IV PRN (14:31)
[2023-12-23] MEDS: SODIUM CHLORIDE 0.9% 1,000 ML IV SCH (14:36)
[2023-12-23] MEDS: CHECK fentaNYL PATCH PLACEMENT SCH (15:39)
--- NOTE | 2023-12-23 18:03 | Billing Data ---
Date of Service December 23, 2023 Coding Level of Care Code 70625 SUB INP/OBS CARE
[2023-12-23] MEDS: METHADONE HCL 5 MG TAB PO SCH (20:07)
[2023-12-24] MEDS: ALBUTEROL 0.083% NEBU SOLN 3 ML VIAL NEB PRN (04:47)
--- NOTE | 2023-12-24 07:32 | Hospitalist Progress Note ---
Date of Service December 24, 2023 Assessment & Plan (1) Admission for hospice care: (2) Cancer related pain: (3) Metastasis from pancreatic cancer: (4) Abdominal pain: (5) COPD (chronic obstructive pulmonary disease): (6) History of [place] (myocardial infarction): (7) Bipolar disorder: Plan 63 y/o (Goes by [facility]) presents to the ER via EMS sent in by hospice for hospice admission for pain control as unable to get this under control at home despite Fentanyl patch and hydromorphone PO. Referred here by Dr. Hoffmann since she lives alone and has no local support and concern about not able to care for self in regards to medication self dispensing. Cancer related pain and admission for hospice care - -[facility] Hospice recommendations: -Fentanyl patch 75mg Q72hrs -Methadone 5 mg qHS - Dexamethasone 4 mg qam - Hydromorphone ATTACHE: Continue bolus 0.5 mg q30 minutes prn. Basal 2 mg/hr added today -continue zofran 8mgs TID prn for nausea, Haldol 1mg prn if zofran not effective. -Continue miralax 17mg QD; milk of magnesia 5mL prn; hyoscyamine 0.125mg q4; senna 17.2mg QD -Palliative consulted - [facility] hospice following Pancreatic cancer diagnosed about 1 year ago -was previously on chemotherapy -percutaneous tube placed 3-4 weeks ago for drainage of pancreatic cancer cyst COPD/AR -DuoNebs 3mL QID prn -Flonase 1 spray QD -Stiolto Respimat (tiotropium bromide - olodaterol) 2.5mcg-2.5mcg, 2 puffs daily CAD/[place] -continue home meds carvedilol 3.125mg BID, ranolazine ER 500mg BID, losartan 25mg QD Bipolar ds - listed in problem list. Not on any mood stabilizer. Follow. Disposition/care plan - overall hospice care can be provided at home/SNF. [facility] hospice following her for H/h diet: regular, soft and bite-sized output: purewick for urine, diaper for BM Admission and Anticipated Discharge Date Admission Date: December 20, 2023 Supervising Physician Co-Signing Physician Notes I personally examined the patient and verified all pak points of history and exam, discussed case, and agree with decision making with Dr Markell Martinez pain 01/08. skip operator click not helping. denies that she was sedated or groggy w continuous narcotics yesterday. Vitals noted, in general she is awake and alert pleasant no distress. HEENT normocephalic atraumatic mucous membranes moist. Breathing unlabored no accessory muscle use good effort. Skin without rashes pallor or icterus. Neuro without focal deficits. Inpatient hospice for pancreatic cancer with uncontrolled pain as an outpatientpain uncontrolled. resume conitnuous, tighten interval for ATTACHE click. continue supportive care Subjective Sitting in bed eating. Pain not controlled. 01/08 today. [facility] hospice visit this am. Denied any nausea, or vomiting Review of Systems Review of Systems: as per HPI Physical Exam Physical Exam: Alert and oriented. No respiratory distress. Results & Data Results & Data Vital Signs (Past 12 Hours) Vital Signs Resp Pulse Ox O2 Del Method O2 Flow Rate 12/24/23 04:47 18 100 Nasal Cannula 3 12/23/23 20:00 Nasal Cannula 3 Resident Activity Tracking Resident Involvement: Resident Care Provided Care Provided: Adult Hospital Medicine (4) Abdominal pain Abdominal location: unspecified location Qualified Code(s): R10.9 - Unspecified abdominal pain (5) COPD (chronic obstructive pulmonary disease) COPD type: unspecified COPD Qualified Code(s): J44.9 - Chronic obstructive pulmonary disease, unspecified
--- NOTE | 2023-12-24 12:54 | Billing Data ---
Date of Service December 24, 2023 Coding Level of Care Code 47840 SUB INP/OBS CARE
--- NOTE | 2023-12-25 07:34 | Hospitalist Progress Note ---
Date of Service December 25, 2023 Assessment & Plan (1) Admission for hospice care: (2) Cancer related pain: (3) Metastasis from pancreatic cancer: (4) Abdominal pain: (5) COPD (chronic obstructive pulmonary disease): (6) History of [place] (myocardial infarction): (7) Bipolar disorder: Plan 63 y/o (Goes by [facility]) presents to the ER via EMS sent in by hospice for hospice admission for pain control as unable to get this under control at home despite Fentanyl patch and hydromorphone PO. Referred here by Dr. Hoffmann since she lives alone and has no local support and concern about not able to care for self in regards to medication self dispensing. Cancer related pain and admission for hospice care - -[facility] Hospice recommendations: -Fentanyl patch 75mg Q72hrs -Methadone 5 mg qHS - Dexamethasone 4 mg qam - Hydromorphone FERMENTOLOGIST: Continue bolus 0.5 mg q30 minutes prn. Basal 3 mg/hr added today -continue Zofran 8mgs TID prn for nausea, Haldol 1mg prn if zofran not effective. -Continue Miralax 17mg QD; milk of magnesia 5mL prn; hyoscyamine 0.125mg q4; senna 17.2mg QD -Palliative consulted - [facility] hospice following Pancreatic cancer diagnosed about 1 year ago -was previously on chemotherapy -percutaneous tube placed 3-4 weeks ago for drainage of pancreatic cancer cyst COPD/AR -DuoNebs 3mL QID prn -Flonase 1 spray QD -Stiolto Respimat (tiotropium bromide - olodaterol) 2.5mcg-2.5mcg, 2 puffs daily CAD/[place] -continue home meds carvedilol 3.125mg BID, ranolazine ER 500mg BID, losartan 25mg QD Bipolar ds - listed in problem list. Not on any mood stabilizer. Follow. Disposition/care plan - overall hospice care can be provided at home/SNF. [facility] hospice following her for H/h diet: regular, soft and bite-sized output: purewick for urine, diaper for BM Admission and Anticipated Discharge Date Admission Date: December 20, 2023 Supervising Physician Co-Signing Physician Notes I personally examined the patient and verified all pak points of history and exam, discussed case, and agree with decision making with Dr Markell Juan Sleeping whenever I tried to see her today. In discussion with nursing, it seems as though she is finally starting of pain relief. A bit more sleepy than yesterday. Has not expressed any keen desire to nursing about wanting to get out of the hospital, nor had she discussed this with megoal really seem to be predominantly to alleviate pain. Vitals noted, sleeping but finally appears comfortable. No distress. Breathing unlabored no accessory muscles good spontaneous effort. What appears to be a chronic degree of pallor remains. Inpatient hospice for pancreatic cancer with uncontrolled pain as an outpatientpain uncontrolled. Admitted under inpatient hospice due to inadequate pain control at home. Initially was on a Dilaudid FERMENTOLOGIST at 2.3 mg/h continuous and still awake alert and complaining of 10 out of 10 pain. At hospice recommendations, this was changed to FERMENTOLOGIST only for a day, but her pain was still uncontrolled. Given that her goal was to alleviate suffering from her end-stage disease, we resumed FERMENTOLOGIST 2 mg an hour and kept the a FERMENTOLOGIST as needed click in placethis morning in discussion with resident physician she was still noting pain overall uncontrolled, although she had not used the click very muchnoting she largely forgets toto that end, given that the goal overall is to alleviate suffering and she was still complaining of uncontrolled pain, continuous drip increased a bit further given that she was still complaining of pain at a higher rate continuous than before (and given that she was not utilizing the FERMENTOLOGIST click dosing, the 2 mg an hour was overall less than what she was on for her first day or so in the hospital). Hospice recommendations on trying to transition to what could be an outpatient regimen are appreciated, but given that the patient came to the hospital due to uncontrolled pain, and even at a rather sizable dose of continuous drip (Dilaudid FERMENTOLOGIST at 2.3 mg an hour) she had still been awake and complaining of uncontrolled pain, and given that her goal is to alleviate her suffering, I currently feel that transitioning to a lesser regimen is likely to open the door for more suffering for her. Obviously the goal here is to alleviate suffering not hasten passing, but it seems that with her tolerance for pain medicines, combined with the severity of her pain, the ethical "rule of double effect" may be in place herewhere it may take pura ugh dosing to cause a degree of sedation to alleviate the suffering she has been having. Will continue to titrate the drip up or down as her situation unfolds to meet her needs. Subjective Sitting in bed eating. Pain not controlled. 01/08 today. [facility] hospice visit this am. Denied any nausea, or vomiting Review of Systems Review of Systems: as per hpi Physical Exam Physical Exam: Alert and oriented. No respiratory distress. Results & Data Results & Data Vital Signs (Past 12 Hours) Vital Signs O2 Del Method O2 Flow Rate 12/24/23 20:00 Nasal Cannula 2 Resident Activity Tracking Resident Involvement: Resident Care Provided Care Provided: Adult Hospital Medicine (4) Abdominal pain Abdominal location: unspecified location Qualified Code(s): R10.9 - Unspecified abdominal pain (5) COPD (chronic obstructive pulmonary disease) COPD type: unspecified COPD Qualified Code(s): J44.9 - Chronic obstructive pulmonary disease, unspecified
[2023-12-25] MEDS ORDERED: Nursing to Pharmacy Communication SCH (13:00)
--- NOTE | 2023-12-25 16:40 | Billing Data ---
Date of Service December 25, 2023 Coding Level of Care Code 23100 SUB INP/OBS CARE MIN
[2023-12-26] MEDS: LORazepam 0.5 MG TAB PO PRN (06:01)
[2023-12-26] MEDS: SCOPOLAMINE 1 MG/72 HR TDSY PATCH TD SCH (11:02)
--- NOTE | 2023-12-26 12:43 | Communication Note ---
Date of Service: December 26, 2023 I personally examined the patient and verified all pak points of history and exam, discussed case, and agree with decision making with Dr Torie Magallanes sleeping but easily awakens. notes that pain is now under control. discussed situation and right now she's content here with pain control with no real desire to consider dc planning or return to home hospice. does complain of neck pain/stiffness. no sob. vitals noted asleep but easily awakens, thin/frail. ost/msk - L>R b/l Cspine paraspinals and musculature in region of levator scapula high tone/tender/decreased ROM - indirect/unwinding/direct myofascial with some improvement, pt tolerated well, noted at least some symptom relief during OMT. thick mucous sounds with respirations pancreatic cancer with uncontrolled pain - now doing better. given prior suffering, would continue current care. add scoplamine patch for secretions (but oddly despite very loud respiratory sounds she denies dyspnea and does not appear sob at all) neck pain - gentle OMT done as above otherwise as per dr torie magallanes
--- NOTE | 2023-12-26 12:43 | Billing Data ---
Date of Service December 26, 2023 Coding Level of Care Code 33456 SUB INP/OBS CARE
--- NOTE | 2023-12-26 12:46 | Hospitalist Progress Note ---
Date of Service December 26, 2023 Assessment & Plan (1) Admission for hospice care: (2) Cancer related pain: (3) Metastasis from pancreatic cancer: (4) Abdominal pain: (5) COPD (chronic obstructive pulmonary disease): (6) History of [place] (myocardial infarction): (7) Bipolar disorder: Plan 63 y/o (Goes by [facility]) presents to the ER via EMS sent in by hospice for hospice admission for pain control as unable to get this under control at home despite Fentanyl patch and hydromorphone PO. Referred here by Dr. Hoffmann since she lives alone and has no local support and concern about not able to care for self in regards to medication self dispensing. Cancer related pain and admission for hospice care - -[facility] Hospice recommendations: -Fentanyl patch 75mg Q72hrs -Methadone 5 mg qHS - Dexamethasone 4 mg qam - Hydromorphone MORTGAGE UNDERWRITER: Continue bolus 0.5 mg q30 minutes prn. Basal 3 mg/hr added today -continue Zofran 8mgs TID prn for nausea, Haldol 1mg prn if zofran not effective. -Continue Miralax 17mg QD; milk of magnesia 5mL prn; hyoscyamine 0.125mg q4; senna 17.2mg QD - Scopolamine -Palliative consulted - [facility] hospice following Pancreatic cancer diagnosed about 1 year ago -was previously on chemotherapy -percutaneous tube placed 3-4 weeks ago for drainage of pancreatic cancer cyst COPD/AR -DuoNebs 3mL QID prn -Flonase 1 spray QD -Stiolto Respimat (tiotropium bromide - olodaterol) 2.5mcg-2.5mcg, 2 puffs daily CAD/[place] -continue home meds carvedilol 3.125mg BID, ranolazine ER 500mg BID, losartan 25mg QD Bipolar ds - listed in problem list. Not on any mood stabilizer. Follow. Disposition/care plan - overall hospice care can be provided at home/SNF. [facility] hospice following her for H/h diet: regular, soft and bite-sized output: purewick for urine, diaper for BM Admission and Anticipated Discharge Date Admission Date: December 20, 2023 Subjective Sitting in bed eating. Asleep easily to awake. Pain better controlled now. [facility] hospice visit this am. Denied any nausea, or vomiting Review of Systems Review of Systems: as per HPI Physical Exam Physical Exam: Alert and oriented. No respiratory distress. Results & Data Results & Data Vital Signs (Past 12 Hours) Vital Signs BP 12/26/23 10:03 146/114 H Resident Activity Tracking Resident Involvement: Resident Care Provided Care Provided: Adult Hospital Medicine (4) Abdominal pain Abdominal location: unspecified location Qualified Code(s): R10.9 - Unspecified abdominal pain (5) COPD (chronic obstructive pulmonary disease) COPD type: unspecified COPD Qualified Code(s): J44.9 - Chronic obstructive pulmonary disease, unspecified
[2023-12-26] MEDS: CHECK SCOPOLAMINE PATCH PLACEMENT SCH (16:49)
--- NOTE | 2023-12-27 10:05 | Hospitalist Progress Note ---
Date of Service December 27, 2023 Assessment & Plan (1) Admission for hospice care: (2) Cancer related pain: (3) Metastasis from pancreatic cancer: (4) Abdominal pain: (5) COPD (chronic obstructive pulmonary disease): (6) History of [place] (myocardial infarction): (7) Bipolar disorder: Plan 63 y/o (Goes by [facility]) presents to the ER via EMS sent in by hospice for hospice admission for pain control as unable to get this under control at home despite Fentanyl patch and hydromorphone PO. Referred here by Dr. Hoffmann since she lives alone and has no local support and concern about not able to care for self in regards to medication self dispensing. Cancer related pain and admission for hospice care - -[facility] Hospice recommendations: -Fentanyl patch 75mg Q72hrs -Methadone 5 mg qHS - Dexamethasone 4 mg qam - Hydromorphone INFRASTRUCTURE ARCHITECT: Continue bolus 0.5 mg q30 minutes prn. Basal 3 mg/hr - Pain well controlled -continue Zofran 8mgs TID prn for nausea, Haldol 1mg prn if zofran not effective. -Continue Miralax 17mg QD; milk of magnesia 5mL prn; hyoscyamine 0.125mg q4; senna 17.2mg QD - Scopolamine for secretions -Palliative consulted - [facility] hospice following Pancreatic cancer diagnosed about 1 year ago -was previously on chemotherapy -percutaneous tube placed 3-4 weeks ago for drainage of pancreatic cancer cyst COPD/AR -DuoNebs 3mL QID prn -Flonase 1 spray QD -Stiolto Respimat (tiotropium bromide - olodaterol) 2.5mcg-2.5mcg, 2 puffs daily CAD/[place] -continue home meds carvedilol 3.125mg BID, ranolazine ER 500mg BID, losartan 25mg QD Bipolar ds - listed in problem list. Not on any mood stabilizer. Follow. Disposition/care plan - overall hospice care can be provided at home/SNF. [facility] hospice following her for H/h diet: regular, soft and bite-sized output: purewick for urine, diaper for BM Admission and Anticipated Discharge Date Admission Date: December 20, 2023 Supervising Physician Co-Signing Physician Notes I personally examined the patient and verified all pak points of history and exam, discussed case, and agree with decision making with Dr Torie Magallanes Awake. Notes pain is under reasonable control. Satisfied with care. Neck pain doing better today. vitals noted No distress. Breathing unlabored no accessory muscle use good effort. Skin without rashes pallor or icterus. Neuro without focal deficits. Respiratory rattle has resolved pancreatic cancer with uncontrolled pain - now doing better. given prior suffering, would continue current care. continue scoplamine patch for secretions (but oddly despite very loud respiratory sounds she denied dyspnea and did not appear sob at all) neck pain - gentle OMT done yesterday otherwise as per dr torie magallanes Subjective Sitting in bed eating. While awake, Eating breakfast. Refers pain is well c ontrol. Denied any nausea, or vomiting Review of Systems Review of Systems: as per HPI Physical Exam Physical Exam: Alert and oriented. No respiratory distress. Results & Data Results & Data Vital Signs (Past 12 Hours) Vital Signs BP 12/27/23 07:15 132/95 Resident Activity Tracking Resident Involvement: Resident Care Provided Care Provided: Adult Hospital Medicine (4) Abdominal pain Abdominal location: unspecified location Qualified Code(s): R10.9 - Unspecified abdominal pain (5) COPD (chronic obstructive pulmonary disease) COPD type: unspecified COPD Qualified Code(s): J44.9 - Chronic obstructive pulmonary disease, unspecified
[2023-12-27] MEDS ORDERED: METHADONE HCL 5 MG TAB PO SCH (13:15)
[2023-12-27] MEDS: METHADONE HCL 5 MG TAB PO SCH (16:27)
--- NOTE | 2023-12-27 16:41 | Billing Data ---
Date of Service December 27, 2023 Coding Level of Care Code 46292 SUB INP/OBS CARE
--- NOTE | 2023-12-28 13:56 | Hospitalist Progress Note ---
Date of Service December 28, 2023 Assessment & Plan (1) Admission for hospice care: (2) Cancer related pain: (3) Metastasis from pancreatic cancer: (4) Abdominal pain: (5) COPD (chronic obstructive pulmonary disease): (6) History of [place] (myocardial infarction): (7) Bipolar disorder: Plan 63 y/o (Goes by [facility]) presents to the ER via EMS sent in by hospice for hospice admission for pain control as unable to get this under control at home despite Fentanyl patch and hydromorphone PO. Referred here by Dr. Hoffmann since she lives alone and has no local support and concern about not able to care for self in regards to medication self dispensing. Plan for family meeting today to discuss ultimate goals Cancer related pain and admission for hospice care - -[facility] Hospice recommendations: -Fentanyl patch 75mg Q72hrs -Methadone 5 mg qHS - Dexamethasone 4 mg qam - Hydromorphone ACETYLENE TORCH OPERATOR: Continue bolus 0.5 mg q30 minutes prn. Basal 3 mg/hr - Pain well controlled -continue Zofran 8mgs TID prn for nausea, Haldol 1mg prn if zofran not effective. -Continue Miralax 17mg QD; milk of magnesia 5mL prn; hyoscyamine 0.125mg q4; senna 17.2mg QD - Scopolamine for secretions -Palliative consulted - [facility] hospice following Pancreatic cancer diagnosed about 1 year ago -was previously on chemotherapy -percutaneous tube placed 3-4 weeks ago for drainage of pancreatic cancer cyst COPD/AR -DuoNebs 3mL QID prn -Flonase 1 spray QD -Stiolto Respimat (tiotropium bromide - olodaterol) 2.5mcg-2.5mcg, 2 puffs daily CAD/[place] -continue home meds carvedilol 3.125mg BID, ranolazine ER 500mg BID, losartan 25mg QD Bipolar ds - listed in problem list. Not on any mood stabilizer. Follow. Disposition/care plan - overall hospice care can be provided at home/SNF. [facility] hospice following her for H/h diet: regular, soft and bite-sized output: purewick for urine, diaper for BM Admission and Anticipated Discharge Date Admission Date: December 20, 2023 Supervising Physician Co-Signing Physician Notes I personally examined the patient and verified all pak points of history and exam, discussed case, and agree with decision making with Dr Cook sleeping comfortably. Discussed with hospice nurse. No new issues noted. vitals noted No distress. Breathing unlabored no accessory muscle use good effort. Skin without rashes pallor or icterus. Neuro without focal deficits. Respiratory rattle has resolved pancreatic cancer with uncontrolled pain - now doing better. given prior suffering, would continue current care. continue scoplamine patch for secretions (but oddly despite very loud respiratory sounds she denied dyspnea and did not appear sob at all) continue current management. neck pain - gentle OMT done earlier in hospital stay otherwise as above Subjective Patient seen and evaluated at bedside this morning. No acute events overnight. Sitting in med mildly conversational but confused. Hospice agency nurse at bedside during encounter. States pain is well controlled at this time. Review of Systems Review of Systems: reviewed, per HPI Physical Exam Physical Exam: Constitutional: ill-appearing, no acute distress HEENT: NCAT, no conjunctival injection CV: clinically well perfused Resp: gurgling, no increased WOB GI: non-distended MSK: no gross deformities appreciated Skin: warm, dry, no rash appreciated Neuro: alert, mildly interactive, confused Results & Data Results & Data Vital Signs (Past 12 Hours) Vital Signs Temp Pulse Resp BP Pulse Ox O2 Del Method O2 Flow Rate 12/28/23 08:04 36.9 C 79 18 165/98 H 98 Nasal Cannula 3 12/28/23 07:55 Nasal Cannula 3 Resident Activity Tracking Resident Involvement: Resident Care Provided Care Provided: Adult Hospital Medicine (4) Abdominal pain Abdominal location: unspecified location Qualified Code(s): R10.9 - Unspecified abdominal pain (5) COPD (chronic obstructive pulmonary disease) COPD type: unspecified COPD Qualified Code(s): J44.9 - Chronic obstructive pulmonary disease, unspecified
--- NOTE | 2023-12-28 14:15 | Billing Data ---
Date of Service December 28, 2023 Coding Level of Care Code 00861 SUB INP/OBS CARE
[2023-12-28] MEDS ORDERED: HYDROmorphone BOLUS from BAG IV PRN (15:32)
[2023-12-28] MEDS: HYDROmorphone BOLUS from BAG IV SCH (15:51)
[2023-12-28] MEDS: HYDROmorphone 100 MG/100 ML BAG IV SCH (16:23)
--- NOTE | 2023-12-29 10:42 | Hospitalist Progress Note ---
Date of Service December 29, 2023 Assessment & Plan (1) Admission for hospice care: (2) Cancer related pain: (3) Metastasis from pancreatic cancer: (4) Abdominal pain: (5) COPD (chronic obstructive pulmonary disease): (6) History of [place] (myocardial infarction): (7) Bipolar disorder: Plan 63 y/o (Goes by [facility]) presents to the ER via EMS sent in by hospice for hospice admission for pain control as unable to get this under control at home despite Fentanyl patch and hydromorphone PO. Referred here by Dr. Hoffmann since she lives alone and has no local support and concern about not able to care for self in regards to medication self dispensing. Family meeting yesterday: Met with patient, 2 daughters, and granddaughter. Explained advanced state of illness and high degree of pain management requirements needed at this time. Unlikely to be able to wean from continuous infusion pain management and this will make it difficult to transfer to another facility. Answered all questions. Cancer related pain and admission for hospice care - -[facility] Hospice recommendations: -Fentanyl patch 75mg Q72hrs -Methadone 5 mg qHS - Dexamethasone 4 mg qam - Hydromorphone Drip: 3mg/hr -continue Zofran 8mgs TID prn for nausea, Haldol 1mg prn if zofran not effective. -Continue Miralax 17mg QD; milk of magnesia 5mL prn; hyoscyamine 0.125mg q4; senna 17.2mg QD - Scopolamine for secretions -Palliative consulted - [facility] hospice following Pancreatic cancer diagnosed about 1 year ago -was previously on chemotherapy -percutaneous tube placed 3-4 weeks ago for drainage of pancreatic cancer cyst COPD/AR -DuoNebs 3mL QID prn -Flonase 1 spray QD -Stiolto Respimat (tiotropium bromide - olodaterol) 2.5mcg-2.5mcg, 2 puffs daily CAD/[place] -continue home meds carvedilol 3.125mg BID, ranolazine ER 500mg BID, losartan 25mg QD Bipolar ds - listed in problem list. Not on any mood stabilizer. Follow. Disposition/care plan - overall hospice care can be provided at home/SNF. [facility] hospice following her for H/h diet: regular, soft and bite-sized output: purewick for urine, diaper for BM Admission and Anticipated Discharge Date Admission Date: December 20, 2023 Supervising Physician Co-Signing Physician Notes I personally examined the patient and verified all pak points of history and exam, discussed case, and agree with decision making with Dr Cook sleeping comfortably. dr cook discussing/updating family. No new issues noted. vitals noted No distress. Breathing unlabored no accessory muscle use good effort. Skin without rashes pallor or icterus. Neuro without focal deficits. Respiratory rattle has resolved pancreatic cancer with uncontrolled pain - now doing better. given prior suffering, would continue current care. continue scoplamine patch and prn robinul for secretions (but oddly despite very loud respiratory sounds she de nied dyspnea and did not appear sob at all) continue current management. neck pain - gentle OMT done earlier in hospital stay otherwise as above, continue comfort care Subjective Patient seen and evaluated at bedside this morning. No acute events overnight. Discussion with family and patient yesterday - understanding that given pain management requirements, unlikely to be able to transfer to another facility at this time. Patient this am states pain well controlled on Dilaudid drip with PRN Dilaudid push. Review of Systems Review of Systems: reviewed, per HPI Physical Exam Physical Exam: Constitutional: ill-appearing, no acute distress HEENT: NCAT, no conjunctival injection CV: clinically well perfused Resp: gurgling, no increased WOB GI: non-distended MSK: no gross deformities appreciated Skin: warm, dry, no rash appreciated Neuro: alert, mildly interactive, confused Results & Data Results & Data Vital Signs (Past 12 Hours) Vital Signs Temp Pulse Resp BP Pulse Ox O2 Del Method 12/29/23 07:56 36.9 C 72 16 154/91 H 91 Room Air Resident Activity Tracking Resident Involvement: Resident Care Provided Care Provided: Adult Hospital Medicine (4) Abdominal pain Abdominal location: unspecified location Qualified Code(s): R10.9 - Unspecified abdominal pain (5) COPD (chronic obstructive pulmonary disease) COPD type: unspecified COPD Qualified Code(s): J44.9 - Chronic obstructive pulmonary disease, unspecified
--- NOTE | 2023-12-29 16:27 | Billing Data ---
Date of Service December 29, 2023 Coding Level of Care Code 94837 SUB INP/OBS CARE MIN
--- NOTE | 2023-12-30 10:37 | Hospitalist Progress Note ---
Date of Service December 30, 2023 Assessment & Plan (1) Admission for hospice care: (2) Cancer related pain: (3) Metastasis from pancreatic cancer: (4) Abdominal pain: (5) COPD (chronic obstructive pulmonary disease): (6) History of [place] (myocardial infarction): (7) Bipolar disorder: Plan 63 y/o (Goes by [facility]) presents to the ER via EMS sent in by hospice for hospice admission for pain control as unable to get this under control at home despite Fentanyl patch and hydromorphone PO. Referred here by Dr. Hoffmann since she lives alone and has no local support and concern about not able to care for self in regards to medication self dispensing. ## Cancer related pain and admission for hospice care - Currently under better control (3/10 in intensity) - Current pain regimen: Fentanyl patch 75 mcg q72h Methadone 5 mg qHS Dexamethasone 4 mg qam Continue Hydromorphone drip - Continue Zofran 8mgs TID prn for nausea, Haldol 1mg prn if zofran not effective. - Continue Miralax 17mg QD; milk of magnesia 5mL prn; hyoscyamine 0.125mg q4; senna 17.2mg QD - Scopolamine for secretions - Palliative consulted - [facility] hospice following ## Pancreatic cancer - Diagnosed about 1 year ago - Was previously on chemotherapy - Percutaneous tube placed 3-4 weeks ago for drainage of pancreatic cancer cyst; currently draining well, non-bloody ## COPD/[place] - DuoNebs 3mL QID prn - Flonase 1 spray QD - Stiolto Respimat (tiotropium bromide - olodaterol) 2.5mcg-2.5mcg, 2 puffs daily ## CAD/[place] - Continue home meds carvedilol 3.125mg BID, ranolazine ER 500mg BID, losartan 25mg QD diet: regular, soft and bite-sized output: purewick for urine, diaper for BM Admission and Anticipated Discharge Date Admission Date: December 20, 2023 Supervising Physician Co-Signing Physician Notes Attending attestation Pt seen and examined in concert with Dr. Ford. In agreement with the documented findings as noted in the resident documentation with any exceptions or additions as noted here. Pain adequately controlled on present pain management regimen, though patient's mental status is waxing/waning and is presently confused and tangential, though pleasant. On examination, S1/S2 nl RRR no MCG. CTAB. Defer abdominal examination 2/2 patient preference and discomfort. Pancreatic cancer with intractable abdominal pain - stepped down from inpatient hospice care to inpatient management with adequate pain control and will continue present regimen. COPD with chronic cough - continue scopolamine patch, transition to duoneb scheduled as patient with difficulty with inhaler and consider addition of spa cer to INH if subjective improcement. Else see resident documentation as noted. Subjective Patient seen at bedside and found to be awake and alert, somewhat confused but patient states she has memory impairment at baseline. Her pain is now under better control and currently rates it a 3/10 in intensity. Also refers improvement in her SOB but does still have some secretions. Has been eating and drinking okay. No other concerns. Review of Systems Review of Systems: reviewed, per HPI Physical Exam Physical Exam: Constitutional: awake and alert, lying comfortably in bed, NAD HEENT: NCAT, no conjunctival injection CV: clinically well perfused Resp: some rhonchi, no wheezing, no respiratory distress, normal respiratory effort GI: non-distended MSK: no gross deformities appreciated, b/l LE pitting edema which RN states is stable compared to yesterday, no calf tenderness Skin: warm, dry, no rash appreciated Neuro: alert, mildly interactive, confused Results & Data Results & Data Vital Signs (Past 12 Hours) Vital Signs Temp Pulse Resp BP Pulse Ox O2 Del Method 12/30/23 08:53 36.4 C L 70 16 132/81 92 Room Air Resident Activity Tracking Resident Involvement: Resident Care Provided Care Provided: Adult Hospital Medicine (4) Abdominal pain Abdominal location: unspecified location Qualified Code(s): R10.9 - Unspecified abdominal pain (5) COPD (chronic obstructive pulmonary disease) COPD type: unspecified COPD Qualified Code(s): J44.9 - Chronic obstructive pulmonary disease, unspecified
[2023-12-30] MEDS: SCOPOLAMINE 1 MG/72 HR TDSY PATCH TD SCH (18:38)
[2023-12-30] MEDS: HYDROmorphone INJ 1 MG/ML SYRINGE IV PRN (18:47)
[2023-12-31] MEDS: ALBUTEROL 0.083% NEBU SOLN 3 ML VIAL NEB SCH (07:26)
--- NOTE | 2023-12-31 09:09 | Hospitalist Progress Note ---
Date of Service December 31, 2023 Assessment & Plan (1) Admission for hospice care: (2) Cancer related pain: (3) Metastasis from pancreatic cancer: (4) Abdominal pain: (5) COPD (chronic obstructive pulmonary disease): (6) History of [place] (myocardial infarction): (7) Bipolar disorder: Plan 63 y/o (Goes by [facility]) presents to the ER via EMS sent in by hospice for hospice admission for pain control as unable to get this under control at home despite Fentanyl patch and hydromorphone PO. Referred here by Dr. Hoffmann since she lives alone and has no local support and concern about not able to care for self in regards to medication self dispensing. ## Cancer related pain and admission for hospice care - Currently under better control - Current pain regimen: Fentanyl patch increased to 100 mcg q72h Methadone increased to 15 mg TID with Methadone 5 mg q4h prn for breakthrough pain Start titrating Dilaudid drip with goal to stop: Decrease to 2 mg/hr today, 1 mg/hr tomorrow, and stop on (01/02/24) Dexamethasone 4 mg qam Stop Dilaudid IV prn If in 3 days her pain is well controlled with Methadone and fentanyl patch, may consider dc fentanyl patch and continuing methadone only. - Continue Zofran 8mgs TID prn for nausea, Haldol 1mg prn if zofran not effective. - Continue Miralax 17mg QD; milk of magnesia 5mL prn; hyoscyamine 0.125mg q4; senna 17.2mg QD - Scopolamine for secretions ## Pancreatic cancer - Diagnosed about 1 year ago - Was previously on chemotherapy - Percutaneous tube placed 3-4 weeks ago for drainage of pancreatic cancer cyst; currently draining well, non-bloody ## COPD/AR - DuoNebs 3mL QID changed to scheduled q8h as patient occasionally feels SOB but forgets prn order for nebs - Flonase 1 spray QD - Stiolto Respimat (tiotropium bromide - olodaterol) 2.5mcg-2.5mcg, 2 puffs daily ## CAD/[place] - Continue home meds carvedilol 3.125mg BID, ranolazine ER 500mg BID, losartan 25mg QD diet: regular, soft and bite-sized output: purewick for urine, diaper for BM Admission and Anticipated Discharge Date Admission Date: December 20, 2023 Supervising Physician Co-Signing Physician Notes Attending attestation Pt seen and examined in concert with Dr. Ford. In agreement with the documented findings as noted in the resident documentation with any exceptions or additions as noted here. Pain well controlled on present pain management regimen. Patient open to consideration for transition to non-drip regimen if able to maintain pain control. On examination, S1/S2 nl RRR no MCG. CTAB. Abd NT/ND, BS +ve Pancreatic cancer with intractable abdominal pain - palliative care consultation - appreciate recommendations for adjustment of pain medication regimen for optimization off drip. Close pain control. COPD with chronic cough - improved on albuterol subjectively. Continue scopolamine patch, consider switch to albuterol INH with spacer tomorrow Else see resident documentation as noted. Subjective Patient seen at bedside and found to be awake and alert, still somewhat confused. Her pain is now under better control and currently states that it is "low" and has "felt more comfortable than she has in a long time". Some SOB but not much. Has been eating and drinking okay. No other concerns. Review of Systems Review of Systems: reviewed, per HPI Physical Exam Physical Exam: Constitutional: awake and alert, sitting and eating, NAD HEENT: NCAT, no conjunctival injection CV: clinically well perfused Resp: some rhonchi, no wheezing, no respiratory distress, normal respiratory effort GI: non-distended MSK: no gross deformities appreciated, b/l LE pitting edema w/o much change compared w/ yesterday exam Skin: warm, dry, no rash appreciated Neuro: alert, mildly interactive, confused Results & Data Results & Data Vital Signs (Past 12 Hours) Vital Signs Pulse Resp Pulse Ox O2 Del Method 12/31/23 07:26 92 H 20 93 Room Air Resident Activity Tracking Resident Involvement: Resident Care Provided Care Provided: Adult Hospital Medicine (4) Abdominal pain Abdominal location: unspecified location Qualified Code(s): R10.9 - Unspecified abdominal pain (5) COPD (chronic obstructive pulmonary disease) COPD type: unspecified COPD Qualified Code(s): J44.9 - Chronic obstructive pulmonary disease, unspecified
[2023-12-31] MEDS: fentaNYL 100 MCG/HR TDSY TD SCH (12:40)
[2023-12-31] MEDS: METHADONE HCL 5 MG TAB PO SCH (14:30)
[2023-12-31] MEDS: CHECK fentaNYL PATCH PLACEMENT SCH (17:18)
--- NOTE | 2024-01-01 11:06 | Hospitalist Progress Note ---
Date of Service January 01, 2024 Assessment & Plan (1) Admission for hospice care: (2) Cancer related pain: (3) Metastasis from pancreatic cancer: (4) Abdominal pain: (5) COPD (chronic obstructive pulmonary disease): (6) History of [place] (myocardial infarction): (7) Bipolar disorder: Plan 63 y/o (Goes by [facility]) presents to the ER via EMS sent in by hospice for hospice admission for pain control as unable to get this under control at home despite Fentanyl patch and hydromorphone PO. Referred here by Dr. Hoffmann since she lives alone and has no local support and concern about not able to care for self in regards to medication self dispensing. ## Cancer related pain and admission for hospice care - Currently under better control - Current pain regimen: Fentanyl patch increased to 100 mcg q72h Methadone increased to 15 mg TID with Methadone 5 mg q4h prn for breakthrough pain Start titrating Dilaudid drip with goal to stop: Decrease to 1 mg/hr today, possibly stop tomorrow (01/02/24) Dexamethasone 4 mg qam Stop Dilaudid IV prn If in 3 days her pain is well controlled with Methadone and fentanyl patch, may consider dc fentanyl patch and continuing methadone only. - Continue Zofran 8mgs TID prn for nausea, Haldol 1mg prn if zofran not effective. - Continue Miralax 17mg QD; milk of magnesia 5mL prn; hyoscyamine 0.125mg q4; senna 17.2mg QD - Scopolamine for secretions ## Pancreatic cancer - Diagnosed about 1 year ago - Was previously on chemotherapy - Percutaneous tube placed 3-4 weeks ago for drainage of pancreatic cancer cyst; currently draining well, non-bloody ## COPD/AR - DuoNebs 3mL QID changed to scheduled q8h as patient occasionally feels SOB but forgets prn order for nebs - Flonase 1 spray QD - Stiolto Respimat (tiotropium bromide - olodaterol) 2.5mcg-2.5mcg, 2 puffs daily ## CAD/[place] - Continue home meds carvedilol 3.125mg BID, ranolazine ER 500mg BID, losartan 25mg QD diet: regular, soft and bite-sized output: purewick for urine, diaper for BM Admission and Anticipated Discharge Date Admission Date: December 20, 2023 Supervising Physician Co-Signing Physician Notes Attending attestation Pt seen and examined in concert with Dr. Ford. In agreement with the documented findings as noted in the resident documentation with any exceptions or additions as noted here. Pain continues to be well controlled on present pain management regimen. On examination, S1/S2 nl RRR no MCG. CTAB. Abd NT/ND, BS +ve Pancreatic cancer with intractable abdominal pain - palliative care consultation - appreciate recommendations. Continue transition to PO and exploring options for non-inpatient care if tolerating well. COPD with chronic cough - Continue scopolamine patch, continue albuterol neb Else see resident documentation as noted. Subjective Patient with adequate pain control with current regimen. No new symptoms at the time. Review of Systems Review of Systems: reviewed, per HPI Physical Exam Physical Exam: Constitutional: awake and alert, confused, sitting and eating, NAD HEENT: NCAT, no conjunctival injection CV: clinically well perfused Resp: some rhonchi, no wheezing, no respiratory distress, normal respiratory effort GI: non-distended MSK: no gross deformities appreciated, b/l LE pitting edema w/o much change compared w/ yesterday exam Skin: warm, dry, no rash appreciated Neuro: alert, mildly interactive, confused Results & Data Results & Data Vital Signs (Past 12 Hours) Vital Signs Pulse Resp BP Pulse Ox O2 Del Method 01/01/24 08:33 62 16 149/77 H 93 Room Air 01/01/24 07:06 62 18 96 Room Air Resident Activity Tracking Resident Involvement: Resident Care Provided Care Provided: Adult Hospital Medicine (4) Abdominal pain Abdominal location: unspecified location Qualified Code(s): R10.9 - Unspecified abdominal pain (5) COPD (chronic obstructive pulmonary disease) COPD type: unspecified COPD Qualified Code(s): J44.9 - Chronic obstructive pulmonary disease, unspecified
[2024-01-01] MEDS: ALBUTEROL 0.083% NEBU SOLN 3 ML VIAL NEB SCH (19:37)
--- NOTE | 2024-01-02 01:28 | Communication Note ---
Date of Service: January 02, 2024 Called to bedside by nursing at 0115 to evaluation worsening skin rash on patient's back. Nursing expressing concern for shingles. Patient resting comfortably in bed upon arrival. Denies discomfort at present. Examination revealed multiple open bullous lesions across lumbar spine w/o purulence. To the right of the lumbar lesions were multiple 3-5 mm bullous lesions. Lesions not erythematous or vesicular in appearance. Examination of sacral decubitus ulceration revealed progressive breakdown of skin w/ erythema. Patient with 3+ pitting edema to bilateral hips. 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 - Wound culture ordered to evaluation for infectious origin - Will hold off on abx until cultures result given likelihood of non-infectious origin Resident Activity Tracking Resident Involvement: Resident Care Provided Care Provided: Adult [facility] Medicine
[2024-01-02] MEDS: fentaNYL 75 MCG/HR TDSY TD SCH (11:33)
--- NOTE | 2024-01-02 12:28 | Hospitalist Progress Note ---
Date of Service January 02, 2024 Assessment & Plan (1) Admission for hospice care: (2) Cancer related pain: (3) Metastasis from pancreatic cancer: (4) Abdominal pain: (5) COPD (chronic obstructive pulmonary disease): (6) History of [place] (myocardial infarction): (7) Bipolar disorder: Plan 63 y/o (Goes by [facility]) presents to the ER via EMS sent in by hospice for hospice admission for pain control as unable to get this under control at home despite Fentanyl patch and hydromorphone PO. Referred here by Dr. Hoffmann since she lives alone and has no local support and concern about not able to care for self in regards to medication self dispensing. ## Cancer related pain and admission for hospice care - Currently under better control - Current pain regimen: Dc Fentanyl patch Methadone 15 mg TID with Methadone 5 mg q4h prn for breakthrough pain Will stop Dilaudid drip today Dexamethasone 4 mg qam Stop Dilaudid IV prn - Continue Zofran 8mgs TID prn for nausea, Haldol 1mg prn if zofran not effective. - Continue Miralax 17mg QD; milk of magnesia 5mL prn; hyoscyamine 0.125mg q4; senna 17.2mg QD - Scopolamine for secretions ## Pancreatic cancer - Diagnosed about 1 year ago - Was previously on chemotherapy - Percutaneous tube placed 3-4 weeks ago for drainage of pancreatic cancer cyst; currently draining well, non-bloody ## COPD/AR - DuoNebs 3mL QID changed to scheduled q8h as patient occasionally feels SOB but forgets prn order for nebs - Flonase 1 spray QD - Stiolto Respimat (tiotropium bromide - olodaterol) 2.5mcg-2.5mcg, 2 puffs daily ## CAD/[place] - Continue home meds carvedilol 3.125mg BID, ranolazine ER 500mg BID, losartan 25mg QD diet: regular, soft and bite-sized output: purewick for urine, diaper for BM Admission and Anticipated Discharge Date Admission Date: December 20, 2023 Supervising Physician Co-Signing Physician Notes Attending attestation Pt seen and examined in concert with Dr. Ford. In agreement with the documented findings as noted in the resident documentation with any exceptions or additions as noted here. Pain continues to be well controlled on present pain management regimen. On examination, S1/S2 nl RRR no MCG. CTAB. Abd NT/ND, BS +ve Pancreatic cancer with intractable abdominal pain - palliative care consultation - appreciate recommendations. D/C'd opioid drip and tolerating. Still exploring options for non-inpatient care if tolerating well. COPD with chronic cough - Continue scopolamine patch, continue albuterol neb Else see resident documentation as noted. Subjective Patient with adequate pain control with current regimen. No overnight events. No new symptoms at the time. Review of Systems Review of Systems: reviewed, per HPI Physical Exam Physical Exam: Constitutional: awake and alert, confused, NAD Resp: some rhonchi, no wheezing, no respiratory distress, normal respiratory effort GI: non-distended MSK: no gross deformities appreciated, b/l LE pitting edema Neuro: alert, mildly interactive, confused Results & Data Results & Data Vital Signs (Past 12 Hours) Vital Signs Pulse Resp Pulse Ox O2 Del Method 01/02/24 08:00 Room Air 01/02/24 07:41 60 16 90 Room Air Resident Activity Tracking Resident Involvement: Resident Care Provided Care Provided: Adult Hospital Medicine (4) Abdominal pain Abdominal location: unspecified location Qualified Code(s): R10.9 - Unspecified abdominal pain (5) COPD (chronic obstructive pulmonary disease) COPD type: unspecified COPD Qualified Code(s): J44.9 - Chronic obstructive pulmonary disease, unspecified
[2024-01-02] MEDS: CHECK fentaNYL PATCH PLACEMENT SCH (14:50)
[2024-01-03] MEDS: HALOPERIDOL ORAL SOLN 2 MG/ML PO PRN (00:22)
[2024-01-03] MEDS: METHADONE HCL 5 MG TAB PO PRN (06:27)
[2024-01-03] MEDS ORDERED: Nursing to Pharmacy Communication SCH ×2 (11:15→18:30)
--- NOTE | 2024-01-03 12:06 | Hospitalist Progress Note ---
Date of Service January 03, 2024 Assessment & Plan (1) Admission for hospice care: (2) Cancer related pain: (3) Metastasis from pancreatic cancer: (4) Abdominal pain: (5) COPD (chronic obstructive pulmonary disease): (6) History of [place] (myocardial infarction): (7) Bipolar disorder: Plan 63 y/o (Goes by [facility]) presents to the ER via EMS sent in by hospice for hospice admission for pain control as unable to get this under control at home despite Fentanyl patch and hydromorphone PO. Referred here by Dr. Hoffmann since she lives alone and has no local support and concern about not able to care for self in regards to medication self dispensing. ## Cancer related pain and admission for hospice care - Currently under better control with intermittent periods of increased discomfort - Current pain regimen: Methadone 15 mg TID with Methadone 5 mg q4h prn for breakthrough pain Dexamethasone 4 mg qam - Continue Zofran 8mgs TID prn for nausea, Haldol 1mg prn if zofran not effective. - Continue Miralax 17mg QD; milk of magnesia 5mL prn; hyoscyamine 0.125mg q4; senna 17.2mg QD - Scopolamine for secretions - [facility] Hospice following. Pending placement. ## Pancreatic cancer - Diagnosed about 1 year ago - Was previously on chemotherapy - Percutaneous tube placed 3-4 weeks ago for drainage of pancreatic cancer cyst; currently draining well, non-bloody ## COPD/AR - DuoNebs 3mL QID changed to scheduled q8h as patient occasionally feels SOB but forgets prn order for nebs - Flonase 1 spray QD - Stiolto Respimat (tiotropium bromide - olodaterol) 2.5mcg-2.5mcg, 2 puffs daily ## CAD/[place] - Continue home meds carvedilol 3.125mg BID, ranolazine ER 500mg BID, losartan 25mg QD diet: regular, soft and bite-sized output: purewick for urine, diaper for BM Admission and Anticipated Discharge Date Admission Date: December 20, 2023 Supervising Physician Co-Signing Physician Notes I also saw the patient from pak portion of the clinical history and physical examination. I agree with the impression and plan as noted in resident documentation. Upon our afternoon exam, the patient was seated in bed eating her lunch. She had no complaints. She denied pain. Impression and plan Pancreatic cancer with intractable abdominal pain Now comfort measures Pain seems well-controlled at present on current regimen She is appropriate for hospice; case management working on logistics. Additional per resident documentation Subjective Patient evaluated at bedside and states she has not had significant pain, though intermittently more uncomfortable than other times. Nursing notified pill bottles were found in her bed, which included dilaudid, Lorazepam, MS Contin, Zofran, an inhaler, and some kind of vape pod. These were taken by nursing but unsure as to how many patient had taken (if any). At time of evaluation, patient did not appear overly sedated and was able to answer questions. No other dalia rns or significant overnight events. Review of Systems Review of Systems: reviewed, per HPI Physical Exam Physical Exam: Constitutional: awake and alert, confused, NAD Resp: some rhonchi, no wheezing, no respiratory distress, normal respiratory effort GI: non-distended MSK: no gross deformities appreciated, b/l LE pitting edema Neuro: alert, mildly interactive, confused Results & Data Results & Data Vital Signs (Past 12 Hours) Vital Signs Pulse Resp Pulse Ox O2 Del Method 01/03/24 07:31 77 20 94 Room Air 01/03/24 07:30 Room Air Resident Activity Tracking Resident Involvement: Resident Care Provided Care Provided: Adult Hospital Medicine (4) Abdominal pain Abdominal location: unspecified location Qualified Code(s): R10.9 - Unspecified abdominal pain (5) COPD (chronic obstructive pulmonary disease) COPD type: unspecified COPD Qualified Code(s): J44.9 - Chronic obstructive pulmonary disease, unspecified
[2024-01-04] MEDS ORDERED: HEPARIN 100 UNIT/ML 5ML FLUSH FLUSH PRN (00:19)
[2024-01-04] MEDS: HEPARIN 100 UNIT/ML 5ML FLUSH FLUSH PRN (00:55)
--- NOTE | 2024-01-04 10:50 | Hospitalist Progress Note ---
Date of Service January 04, 2024 Assessment & Plan (1) Admission for hospice care: (2) Cancer related pain: (3) Metastasis from pancreatic cancer: (4) Abdominal pain: (5) COPD (chronic obstructive pulmonary disease): (6) History of [place] (myocardial infarction): (7) Bipolar disorder: Plan 63 y/o (Goes by [facility]) presents to the ER via EMS sent in by hospice for hospice admission for pain control as unable to get this under control at home despite Fentanyl patch and hydromorphone PO. Referred here by Dr. Hoffmann since she lives alone and has no local support and concern about not able to care for self in regards to medication self dispensing. ## Cancer related pain and admission for hospice care - Feels pain is well controlled - Current pain regimen: Methadone 15 mg TID with Methadone 5 mg q4h prn for breakthrough pain Dexamethasone 4 mg qam - Continue Zofran 8mgs TID prn for nausea, Haldol 1mg prn if zofran not effective. - Continue Miralax 17mg QD; milk of magnesia 5mL prn; hyoscyamine 0.125mg q4; senna 17.2mg QD - Scopolamine for secretions - [facility] Hospice following. Pending placement. ## Pancreatic cancer - Diagnosed about 1 year ago - Was previously on chemotherapy - Percutaneous tube placed 3-4 weeks ago for drainage of pancreatic cancer cyst; currently draining well, non-bloody ## COPD/[place] - DuoNebs 3mL QID changed to scheduled q8h as patient occasionally feels SOB but forgets prn order for nebs - Flonase 1 spray QD - Stiolto Respimat (tiotropium bromide - olodaterol) 2.5mcg-2.5mcg, 2 puffs daily ## CAD/[place] - Continue home meds carvedilol 3.125mg BID, ranolazine ER 500mg BID, losartan 25mg QD diet: regular, soft and bite-sized output: purewick for urine, diaper for BM Admission and Anticipated Discharge Date Admission Date: December 20, 2023 Supervising Physician Co-Signing Physician Notes I also saw the patient from pak portion of the clinical history and physical examination. I agree with the impression and plan as noted in resident documentation. Patient is eating breakfast - no pain, voices reasonable control. EXAM No acute distress appreciated. Cardiovascular regular rate and rhythm Respirations nonlabored Impression and plan Pancreatic cancer with intractable abdominal pain Now on comfort measures Pain seems well-controlled at present on current regimen She is appropriate for hospice; case management working on logistics. Additional per resident documentation Subjective Patient was evaluated at bedside and found to be stable, slightly drowsy but arousable, confused but able to answer questions. No overnight events reported by nursing. Review of Systems Review of Systems: reviewed, per HPI Physical Exam Physical Exam: Constitutional: awake and alert, confused, NAD Resp: no respiratory distress, normal respiratory effort GI: non-distended MSK: no gross deformities appreciated, b/l LE pitting edema Results & Data Results & Data Vital Signs (Past 12 Hours) Vital Signs Temp Pulse Resp BP Pulse Ox O2 Del Method 01/04/24 08:02 36.3 C L 84 14 132/90 01/04/24 07:45 Room Air 01/04/24 07:32 78 16 91 Room Air Resident Activity Tracking Resident Involvement: Resident Care Provided Care Provided: Adult Hospital Medicine (4) Abdominal pain Abdominal location: unspecified location Qualified Code(s): R10.9 - Unspecified abdominal pain (5) COPD (chronic obstructive pulmonary disease) COPD type: unspecified COPD Qualified Code(s): J44.9 - Chronic obstructive pulmonary disease, unspecified
[2024-01-05] MEDS: MICONAZOLE NITRATE POWDER 85 GM EXT PRN (06:38)
--- NOTE | 2024-01-05 09:56 | Hospitalist Progress Note ---
Date of Service January 05, 2024 Assessment & Plan (1) Admission for hospice care: (2) Cancer related pain: (3) Metastasis from pancreatic cancer: (4) Abdominal pain: (5) COPD (chronic obstructive pulmonary disease): (6) History of [place] (myocardial infarction): (7) Bipolar disorder: Plan 63 y/o (Goes by [facility]) presents to the ER via EMS sent in by hospice for hospice admission for pain control as unable to get this under control at home despite Fentanyl patch and hydromorphone PO. Referred here by Dr. Hoffmann since she lives alone and has no local support and concern about not able to care for self in regards to medication self dispensing. Pending dispo. ## Cancer related pain and admission for hospice care - Feels pain is well controlled - Current pain regimen: Methadone 15 mg TID with Methadone 5 mg q4h prn for breakthrough pain Dexamethasone 4 mg qam - Continue Zofran 8mgs TID prn for nausea, Haldol 1mg prn if zofran not effective. - Continue Miralax 17mg QD; milk of magnesia 5mL prn; hyoscyamine 0.125mg q4; senna 17.2mg QD - Scopolamine for secretions - [facility] Hospice following. Pending placement. ## Pancreatic cancer - Diagnosed about 1 year ago - Was previously on chemotherapy - Percutaneous tube placed 3-4 weeks ago for drainage of pancreatic cancer cyst; currently draining well, non-bloody ## COPD/[place] - DuoNebs 3mL QID changed to scheduled q8h as patient occasionally feels SOB but forgets prn order for nebs - Flonase 1 spray QD - Stiolto Respimat (tiotropium bromide - olodaterol) 2.5mcg-2.5mcg, 2 puffs daily ## CAD/[place] - Continue home meds carvedilol 3.125mg BID, ranolazine ER 500mg BID, losartan 25mg QD diet: regular, soft and bite-sized output: purewick for urine, diaper for BM Admission and Anticipated Discharge Date Admission Date: December 20, 2023 Supervising Physician Co-Signing Physician Notes I also saw the patient from pak portion of the clinical history and physical examination. I agree with the impression and plan as noted in resident documentation. No signs of uncontrolled pain; appetite seems good this morning again. EXAM No acute distress appreciated. Cardiovascular regular rate and rhythm Respirations nonlabored Impression and plan Pancreatic cancer with intractable abdominal pain Now on comfort measures Pain seems well-controlled at present on current regimen She is appropriate for hospice; case management working on logistics. Additional per resident documentation Subjective Patient slightly more confused that yesterday. Nursing reports patient became agitated overnight, had hallucinations, and got little sleep. More cam this morning but still confused. No new symptoms. Review of Systems Review of Systems: reviewed, per HPI Physical Exam Physical Exam: Constitutional: awake and alert, confused, NAD Resp: no respiratory distress, normal respiratory effort GI: non-distended MSK: no gross deformities appreciated, b/l LE pitting edema Results & Data Results & Data Vital Signs (Past 12 Hours) Vital Signs Pulse Resp BP Pulse Ox O2 Del Method 01/05/24 07:49 58 L 17 145/83 H 94 Room Air 01/05/24 07:15 Room Air Resident Activity Tracking Resident Involvement: Resident Care Provided Care Provided: Adult Hospital Medicine (4) Abdominal pain Abdominal location: unspecified location Qualified Code(s): R10.9 - Unspecified abdominal pain (5) COPD (chronic obstructive pulmonary disease) COPD type: unspecified COPD Qualified Code(s): J44.9 - Chronic obstructive pulmonary disease, unspecified
[2024-01-05] MEDS ORDERED: ALBUTEROL 0.083% NEBU SOLN 3 ML VIAL NEB PRN (14:08)
--- NOTE | 2024-01-06 09:26 | Hospitalist Progress Note ---
Date of Service January 06, 2024 Assessment & Plan (1) Admission for hospice care: (2) Cancer related pain: (3) Metastasis from pancreatic cancer: (4) Abdominal pain: (5) COPD (chronic obstructive pulmonary disease): (6) History of [place] (myocardial infarction): (7) Bipolar disorder: Plan 63 y/o (Goes by [facility]) presents to the ER via EMS sent in by hospice for hospice admission for pain control as unable to get this under control at home despite Fentanyl patch and hydromorphone PO. Referred here by Dr. Hoffmann since she lives alone and has no local support and concern about not able to care for self in regards to medication self dispensing. Pending dispo. ## Cancer related pain and admission for hospice care - Feels pain is well controlled - Current pain regimen: Methadone 15 mg TID with Methadone 5 mg q4h prn for breakthrough pain Dexamethasone 4 mg qam - Continue Zofran 8mgs TID prn for nausea, Haldol 1mg prn if zofran not effective. - Continue Miralax 17mg QD; milk of magnesia 5mL prn; hyoscyamine 0.125mg q4; senna 17.2mg QD - Scopolamine for secretions - [facility] Hospice following. Pending placement. ## Pancreatic cancer - Diagnosed about 1 year ago - Was previously on chemotherapy - Percutaneous tube placed 3-4 weeks ago for drainage of pancreatic cancer cyst; currently draining well, non-bloody ## COPD/[place] - DuoNebs 3mL QID changed to scheduled q8h as patient occasionally feels SOB but forgets prn order for nebs - Flonase 1 spray QD - Stiolto Respimat (tiotropium bromide - olodaterol) 2.5mcg-2.5mcg, 2 puffs daily ## CAD/[place] - Continue home meds carvedilol 3.125mg BID, ranolazine ER 500mg BID, losartan 25mg QD diet: regular, soft and bite-sized output: purewick for urine, diaper for BM Admission and Anticipated Discharge Date Admission Date: December 20, 2023 Supervising Physician Co-Signing Physician Notes I personally examined the patient and verified all pak points of history and exam, discussed case, and agree with decision making with Dr Logan nugent, appears comfortable. No new issues identified. Hospice nurse at the bedsideshe noted no new issues either. Vitals noted, breathing unlabored. Appears to be in no distress. No appearance of discomfort. Impression and plan Pancreatic cancer with intractable abdominal pain Continue comfort measures Pain seems well-controlled at present on current regimen She is appropriate for hospice; case management working on logistics. Additional per resident documentation Subjective Patient still confused. Pain well controlled. No overnight events reported. Review of Systems Review of Systems: reviewed, per HPI Physical Exam Physical Exam: Constitutional: awake and alert, confused, NAD Resp: no respiratory distress, normal respiratory effort GI: non-distended MSK: no gross deformities appreciated, b/l LE pitting edema Resident Activity Tracking Resident Involvement: Resident Care Provided Care Provided: Adult Hospital Medicine (4) Abdominal pain Abdominal location: unspecified location Qualified Code(s): R10.9 - Unspecified abdominal pain (5) COPD (chronic obstructive pulmonary disease) COPD type: unspecified COPD Qualified Code(s): J44.9 - Chronic obstructive pulmonary disease, unspecified
--- NOTE | 2024-01-06 19:38 | Billing Data ---
Date of Service January 06, 2024 Coding Level of Care Code 50424 SUB INP/OBS CARE
--- NOTE | 2024-01-07 09:27 | Hospitalist Progress Note ---
Date of Service January 07, 2024 Assessment & Plan (1) Admission for hospice care: (2) Cancer related pain: (3) Metastasis from pancreatic cancer: (4) Abdominal pain: (5) COPD (chronic obstructive pulmonary disease): (6) History of [place] (myocardial infarction): (7) Bipolar disorder: Plan 63 y/o (Goes by [facility]) presents to the ER via EMS sent in by hospice for hospice admission for pain control as unable to get this under control at home despite Fentanyl patch and hydromorphone PO. Referred here by Dr. Hoffmann since she lives alone and has no local support and concern about not able to care for self in regards to medication self dispensing. Pending dispo. ## Cancer related pain and admission for hospice care - Feels pain is well controlled - Current pain regimen: Methadone 15 mg TID with Methadone 5 mg q4h prn for breakthrough pain Dexamethasone 4 mg qam - Continue Zofran 8mgs TID prn for nausea, Haldol 1mg prn if zofran not effective. - Continue Miralax 17mg QD; milk of magnesia 5mL prn; hyoscyamine 0.125mg q4; senna 17.2mg QD - Scopolamine for secretions - [facility] Hospice following. Pending placement. ## Pancreatic cancer - Diagnosed about 1 year ago - Was previously on chemotherapy - Percutaneous tube placed 3-4 weeks ago for drainage of pancreatic cancer cyst; currently draining well, non-bloody ## COPD/[place] - DuoNebs 3mL prn - Flonase 1 spray QD - Stiolto Respimat (tiotropium bromide - olodaterol) 2.5mcg-2.5mcg, 2 puffs daily ## CAD/[place] - Continue home meds carvedilol 3.125mg BID, ranolazine ER 500mg BID, losartan 25mg QD diet: regular, soft and bite-sized output: purewick for urine, diaper for BM Admission and Anticipated Discharge Date Admission Date: December 20, 2023 Supervising Physician Co-Signing Physician Notes I personally examined the patient and verified all pak points of history and exam, discussed case, and agree with decision making with Dr Ford sitting in bed awake, voices no complaints, seems pleasantlky confused. Vitals noted, breathing unlabored. Appears to be in no distress. No appearance of discomfort. Impression and plan Pancreatic cancer with intractable abdominal pain Continue comfort measures Pain seems well-controlled at present on current regimen disposition - not safe at home alone Additional per resident documentation Subjective Patient still confused. Pain well controlled. No overnight events reported. Review of Systems Review of Systems: reviewed, per HPI Physical Exam Physical Exam: Constitutional: awake and alert, confused, NAD Resp: no respiratory distress, normal respiratory effort GI: non-distended MSK: no gross deformities appreciated, b/l LE pitting edema Results & Data Results & Data Vital Signs (Past 12 Hours) Vital Signs Temp Pulse Resp BP Pulse Ox O2 Del Method 01/07/24 07:43 36.9 C 54 L 16 180/80 H 94 Room Air 01/06/24 21:30 Room Air Resident Activity Tracking Resident Involvement: Resident Care Provided Care Provided: Adult Hospital Medicine (4) Abdominal pain Abdominal location: unspecified location Qualified Code(s): R10.9 - Unspecified abdominal pain (5) COPD (chronic obstructive pulmonary disease) COPD type: unspecified COPD Qualified Code(s): J44.9 - Chronic obstructive pulmonary disease, unspecified
--- NOTE | 2024-01-07 13:32 | Billing Data ---
Date of Service January 07, 2024 Coding Level of Care Code 85790 SUB INP/OBS CARE
--- NOTE | 2024-01-08 09:40 | Hospitalist Progress Note ---
Date of Service January 08, 2024 Assessment & Plan (1) Admission for hospice care: (2) Cancer related pain: (3) Metastasis from pancreatic cancer: (4) Abdominal pain: (5) COPD (chronic obstructive pulmonary disease): (6) History of [place] (myocardial infarction): (7) Bipolar disorder: Plan 63 y/o (Goes by [facility]) presents to the ER via EMS sent in by hospice for hospice admission for pain control as unable to get this under control at home despite Fentanyl patch and hydromorphone PO. Referred here by Dr. Hoffmann since she lives alone and has no local support and concern about not able to care for self in regards to medication self dispensing. Pending dispo. ## Cancer related pain and admission for hospice care - Feels pain is well controlled - Current pain regimen: Methadone 15 mg TID with Methadone 5 mg q4h prn for breakthrough pain >> Will Change to TDF later today since this may help ease process of coordinating placement. Will monitor pain control woth this change. Dexamethasone 4 mg qam - Continue Zofran 8mgs TID prn for nausea, Haldol 1mg prn if zofran not effective. - Continue Miralax 17mg QD; milk of magnesia 5mL prn; hyoscyamine 0.125mg q4; senna 17.2mg QD - Scopolamine for secretions - [facility] Hospice following. Pending placement. ## Pancreatic cancer - Diagnosed about 1 year ago - Was previously on chemotherapy - Percutaneous tube placed 3-4 weeks ago for drainage of pancreatic cancer cyst; currently draining well, non-bloody ## COPD/[place] - DuoNebs 3mL prn - Flonase 1 spray QD - Stiolto Respimat (tiotropium bromide - olodaterol) 2.5mcg-2.5mcg, 2 puffs daily ## CAD/[place] - Continue home meds carvedilol 3.125mg BID, ranolazine ER 500mg BID, losartan 25mg QD diet: regular, soft and bite-sized output: purewick for urine, diaper for BM Admission and Anticipated Discharge Date Admission Date: December 20, 2023 Supervising Physician Co-Signing Physician Notes I personally examined the patient and verified all pak points of history and exam, discussed case, and agree with decision making with Dr Ford pleasantly confused, denies pain but appears a little uncomfortable. Vitals noted, breathing unlabored. no major distress but grunts and grimaces some. Impression and plan Pancreatic cancer with intractable abdominal pain Continue comfort measures while no clear disposition out of the hospital appears imminent, methadone as a pain regimen does present some bureaucratic roadblocks that other narcotics regimens at the same MME would not - because of this - switch to fentanyl patch 87mcg (about the same MME as 45mg methadone) and change prn methadone to prn oxycodone disposition - not safe at home alone Additional per resident documentation Subjective Patient still confused. Pain well controlled. No overnight events reported. Review of Systems Review of Systems: reviewed, per HPI Physical Exam Physical Exam: Constitutional: awake and alert, confused, NAD Resp: no respiratory distress, normal respiratory effort GI: non-distended MSK: no gross deformities appreciated, b/l LE pitting edema Results & Data Results & Data Vital Signs (Past 12 Hours) Vital Signs Pulse Pulse Ox O2 Del Method 01/08/24 08:46 89 91 Room Air 01/08/24 07:38 Room Air Resident Activity Tracking Resident Involvement: Resident Care Provided Care Provided: Adult Hospital Medicine (4) Abdominal pain Abdominal location: unspecified location Qualified Code(s): R10.9 - Unspecified abdominal pain (5) COPD (chronic obstructive pulmonary disease) COPD type: unspecified COPD Qualified Code(s): J44.9 - Chronic obstructive pulmonary disease, unspecified
--- NOTE | 2024-01-08 19:23 | Billing Data ---
Date of Service January 08, 2024 Coding Level of Care Code 55702 SUB INP/OBS CARE
[2024-01-09] MEDS: fentaNYL 75 MCG/HR TDSY TD SCH (06:24)
[2024-01-09] MEDS: fentaNYL 12 MCG/HR TDSY TD SCH (06:24)
[2024-01-09] MEDS: CHECK fentaNYL PATCH PLACEMENT SCH (08:31)
--- NOTE | 2024-01-09 10:30 | Hospitalist Progress Note ---
Date of Service January 09, 2024 Assessment & Plan (1) Admission for hospice care: (2) Cancer related pain: (3) Metastasis from pancreatic cancer: (4) Abdominal pain: (5) COPD (chronic obstructive pulmonary disease): (6) History of [place] (myocardial infarction): (7) Bipolar disorder: Plan 63 y/o (Goes by [facility]) presents to the ER via EMS sent in by hospice for hospice admission for pain control as unable to get this under control at home despite Fentanyl patch and hydromorphone PO. Referred here by Dr. Hoffmann since she lives alone and has no local support and concern about not able to care for self in regards to medication self dispensing. Pending dispo. Not safe for return home. ## Cancer related pain and admission for hospice care - Feels pain is well controlled - Current pain regimen: TDF 87 mcg wiht Oxycodone for breakthrough pain. Good pain control for now. Dexamethasone 4 mg qam - Continue Zofran 8mgs TID prn for nausea, Haldol 1mg prn if zofran not effective. - Continue Miralax 17mg QD; milk of magnesia 5mL prn; hyoscyamine 0.125mg q4; senna 17.2mg QD - Scopolamine for secretions - [facility] Hospice following. Pending placement. ## Pancreatic cancer - Diagnosed about 1 year ago - Was previously on chemotherapy - Percutaneous tube placed 3-4 weeks ago for drainage of pancreatic cancer cyst ## COPD/[place] - DuoNebs 3mL prn - Flonase 1 spray QD - Stiolto Respimat (tiotropium bromide - olodaterol) 2.5mcg-2.5mcg, 2 puffs daily ## CAD/[place] - Continue home meds carvedilol 3.125mg BID, ranolazine ER 500mg BID, losartan 25mg QD diet: regular, soft and bite-sized output: purewick for urine, diaper for BM Admission and Anticipated Discharge Date Admission Date: December 20, 2023 Supervising Physician Co-Signing Physician Notes I personally examined the patient and verified all pak points of history and exam, discussed case, and agree with decision making with Dr Ford pleasantly confused, no real HPI or ROS today. Vitals noted, breathing unlabored. nad. breathing unlabored no accessory muscles good effort skin no rashes no pallor or icterus Impression and plan Pancreatic cancer with intractable abdominal pain Continue comfort measures now on fentanyl patch and prn oxycodone. disposition - not safe at home alone Additional per resident documentation Subjective Patient still confused. No overnight events reported. Review of Systems Review of Systems: reviewed, per HPI Physical Exam Physical Exam: Constitutional: awake and alert, confused, NAD Resp: no respiratory distress, normal respiratory effort GI: non-distended MSK: no gross deformities appreciated, b/l LE pitting edema Results & Data Results & Data Vital Signs (Past 12 Hours) Vital Signs Pulse BP Pulse Ox O2 Del Method 01/09/24 08:00 74 176/90 H 92 Room Air Resident Activity Tracking Resident Involvement: Resident Care Provided Care Provided: Adult Hospital Medicine (4) Abdominal pain Abdominal location: unspecified location Qualified Code(s): R10.9 - Unspe cified abdominal pain (5) COPD (chronic obstructive pulmonary disease) COPD type: unspecified COPD Qualified Code(s): J44.9 - Chronic obstructive pulmonary disease, unspecified
[2024-01-09] MEDS: oxyCODONE HCL IR 5 MG TAB (IMMEDIATE RELEASE) PO PRN (11:13)
[2024-01-09] MEDS: MAGNESIUM HYDROXIDE SUSP 30 ML UDC PO PRN (16:59)
[2024-01-09] MEDS: POLYETHYLENE (MIRALAX) 17 GM PACK PO PRN (16:59)
[2024-01-09] MEDS: DOCUSATE SODIUM/SENNA 50/8.6MG TAB PO PRN (17:00)
--- NOTE | 2024-01-09 18:12 | Billing Data ---
Date of Service January 09, 2024 Coding Level of Care Code 25697 SUB INP/OBS CARE
--- NOTE | 2024-01-10 13:11 | Hospitalist Progress Note ---
Date of Service January 10, 2024 Assessment & Plan (1) Admission for hospice care: (2) Cancer related pain: (3) Metastasis from pancreatic cancer: (4) Abdominal pain: (5) COPD (chronic obstructive pulmonary disease): (6) History of [place] (myocardial infarction): (7) Bipolar disorder: Plan 63 y/o (Goes by [facility]) presents to the ER via EMS sent in by hospice for hospice admission for pain control as unable to get this under control at home despite Fentanyl patch and hydromorphone PO. Referred here by Dr. Hoffmann since she lives alone and has no local support and concern about not able to care for self in regards to medication self dispensing. Pending dispo. Not safe for return home. ## Cancer related pain and admission for hospice care - Feels pain is well controlled - Current pain regimen: TDF increased to 100 mcg with Oxycodone for breakthrough pain due to poor control of pain. Dexamethasone 4 mg qam - Continue Zofran 8mgs TID prn for nausea, Haldol 1mg prn if zofran not effective. - Continue Miralax 17mg QD; milk of magnesia 5mL prn; hyoscyamine 0.125mg q4; senna 17.2mg QD - Scopolamine for secretions - [facility] following. Pending placement. ## Pancreatic cancer - Diagnosed about 1 year ago - Was previously on chemotherapy - Percutaneous tube placed 3-4 weeks ago for drainage of pancreatic cancer cyst ## COPD/[place] - DuoNebs 3mL prn - Flonase 1 spray QD - Stiolto Respimat (tiotropium bromide - olodaterol) 2.5mcg-2.5mcg, 2 puffs daily ## CAD/[place] - Continue home meds carvedilol 3.125mg BID, ranolazine ER 500mg BID, losartan 25mg QD diet: regular, soft and bite-sized output: purewick for urine, diaper for BM Admission and Anticipated Discharge Date Admission Date: December 20, 2023 Supervising Physician Co-Signing Physician Notes I personally examined the patient and verified all pak points of history and exam, discussed case, and agree with decision making with Dr Ford no HPI or ROS today for me, was c/o pain being uncontrolled earlier. Vitals noted, breathing unlabored. nad. breathing unlabored no accessory muscles good effort skin no rashes no pallor or icterus Impression and plan Pancreatic cancer with intractable abdominal pain Continue comfort measures now on fentanyl patch (increase since uncontrolled pain) and prn oxycodone. disposition - not safe at home alone Additional per resident documentation Subjective Patient with poor control of pain and rates her pain today a 01/08. No overnight events. Review of Systems Review of Systems: reviewed, per HPI Physical Exam Physical Exam: Constitutional: awake and alert, confused, NAD Resp: no respiratory distress, normal respiratory effort GI: non-distended MSK: no gross deformities appreciated Results & Data Results & Data Vital Signs (Past 12 Hours) Vital Signs Pulse BP Pulse Ox O2 Del Method 01/10/24 08:56 97 H 149/89 H 95 Room Air 01/10/24 07:35 Room Air Resident Activity Tracking Resident Involvement: Resident Care Provided Care Provided: Adult Hospital Medicine (4) Abdominal pain Abdominal location: unspecified location Qualified Code(s): R10.9 - Unspecified abdominal pain (5) COPD (chronic obstructive pulmonary disease) COPD type: unspecified COPD Qualified Code(s): J44.9 - Chronic obstructive pulmonary disease, unspecified
[2024-01-10] MEDS: CHECK fentaNYL PATCH PLACEMENT SCH (14:03)
[2024-01-10] MEDS: fentaNYL 100 MCG/HR TDSY TD SCH (14:06)
[2024-01-10] MEDS: POLYETHYLENE (MIRALAX) 17 GM PACK PO SCH (17:08)
--- NOTE | 2024-01-10 18:33 | Billing Data ---
Date of Service January 10, 2024 Coding Level of Care Code 76971 SUB INP/OBS CARE
--- NOTE | 2024-01-11 07:44 | Hospitalist Progress Note ---
Date of Service January 11, 2024 Assessment & Plan (1) Admission for hospice care: (2) Cancer related pain: (3) Metastasis from pancreatic cancer: (4) Abdominal pain: (5) COPD (chronic obstructive pulmonary disease): (6) History of [place] (myocardial infarction): (7) Bipolar disorder: Plan Pt is a 63 y/o F (Goes by [facility]) presented to the ER via EMS sent in by hospice for hospice admission for pain control as unable to get this under control at home despite Fentanyl patch and hydromorphone PO. Referred here by Dr. Hoffmann since she lives alone and has no local support and was concerned about not ability to care for self in regards to medication self dispensing. Pending placement. Not safe for return home. 1) Cancer related pain and admission for hospice care - Feels pain is NOT well controlled - Current pain regimen: TD-fentanyl increased to 100 mcg with Oxycodone (5 mg, q4hr, PO, PRN) for breakthrough pain Dexamethasone 4 mg qam - Continue Zofran 8mgs TID prn for nausea, Haldol 1mg prn if zofran not effective. - Continue Miralax 17mg, TID, CHELI; milk of magnesia 5mL prn; hyoscyamine 0.125mg q4, PRN; senna 17.2mg, PO, BID, PRN - Scopolamine for secretions, CHELI - [facility] following. Pending placement. 2) Pancreatic cancer - Diagnosed about 1 year ago - Was previously on chemotherapy - Percutaneous tube placed 3-4 weeks ago for drainage of pancreatic cancer cyst 3) COPD - DuoNebs 3mL prn - Flonase 1 spray QD - Stiolto Respimat (tiotropium bromide - olodaterol) 2.5mcg-2.5mcg, 2 puffs daily 4) CAD/[place] - Continue home meds carvedilol 3.125mg BID, ranolazine ER 500mg BID, losartan 25mg QD Code status: DNR/DNI Disposition: Med-Surg FENGI: Regular, soft and bite-sized diet output: purewick for urine, diaper for BM Admission and Anticipated Discharge Date Admission Date: December 20, 2023 Supervising Physician Co-Signing Physician Notes I personally examined the patient and verified all pak points of history and exam, discussed case, and agree with decision making with Dr Escamilla no HPI or ROS today for me, sleeping comfortably. Vitals noted, breathing unlabored. nad. breathing unlabored no accessory muscles good effort skin no rashes no pallor or icterus Impression and plan Pancreatic cancer with intractable abdominal pain Continue comfort measures pain appears controlled since 01/09 increase in fentanyl patch. continue this and prn oxycodone. disposition - not safe at home alone Additional per resident documentation Subjective Patient is 63 yo F w/ a PMHx of bipolar d/o, HLD, Hx of [place], COPD, metastatic pancreatic cancer, hepatitis B, hepatitis C, arthritis who presented to the hospital for admission for hospice care. Patient is AAO x 3 (not to time). Patient w/ abdominal pain but unable to be redirected regarding questions about the pain severity or exact location of abdominal pain. Review of Systems Constitutional: no fever and no chills Respiratory: no cough and no dyspnea Cardiovascular: no chest pain and no palpitations Gastrointestinal: + abdominal pain; no constipation (patie nt had a BM last night) Genitourinary: no dysuria and no urinary frequency Integumentary: + non-healing lesions (pressure ulcer ar ound anus, perianally) Neurologic: no tingling, no numbness and no headache(s) Physical Exam Constitutional: WD/WN, vitals as above Respiratory: normal respiratory effort, lungs clear to auscultation Cardiovascular: RRR, no murmur, no edema Gastrointestinal (Abdomen): Inspection/Auscultation: abdomen normal to inspection and normal bowel sounds; abdomen not distended Percussion/Palpation: + abdomen tender (diffusely moderately tender over entire abdomen) Skin: + purpura (over both hands bilaterally) Psychiatric: Orientation: alert, oriented to person, oriented to place and cooperative Results & Data Results & Data Vital Signs (Past 12 Hours) Vital Signs O2 Del Method 01/10/24 21:10 Room Air (4) Abdominal pain Abdominal location: unspecified location Qualified Code(s): R10.9 - Unspecified abdominal pain (5) COPD (chronic obstructive pulmonary disease) COPD type: unspecified COPD Qualified Code(s): J44.9 - Chronic obstructive pulmonary disease, unspecified
--- NOTE | 2024-01-11 10:20 | Billing Data ---
Date of Service January 11, 2024 Coding Level of Care Code 79624 SUB INP/OBS CARE
[2024-01-12] MEDS: oxyCODONE HCL IR 5 MG TAB (IMMEDIATE RELEASE) PO STA (06:33)
[2024-01-12] MEDS: LORazepam 0.5 MG TAB PO SCH (12:38)
--- NOTE | 2024-01-12 14:37 | Hospitalist Progress Note ---
Date of Service January 12, 2024 Assessment & Plan (1) Admission for hospice care: (2) Cancer related pain: (3) Metastasis from pancreatic cancer: (4) Abdominal pain: (5) COPD (chronic obstructive pulmonary disease): (6) History of [place] (myocardial infarction): (7) Bipolar disorder: Plan Pt is a 63 y/o F (Goes by [facility]) presented to the ER via EMS sent in by hospice for hospice admission for pain control as unable to get this under control at home despite Fentanyl patch and hydromorphone PO. Referred here by Dr. Hoffmann since she lives alone and has no local support and was concerned about not ability to care for self in regards to medication self dispensing. Pending placement. Not safe for return home. 1) Cancer related pain and admission for hospice care - Feels pain is mostly well controlled, but frequent breakthrough pain even after TD-fentanyl increase from 50 to 100 mcg/hr; may need to consider increasing breakthrough-pain Oxycodone dosage - Current pain regimen: TD-fentanyl increased to 100 mcg with Oxycodone (5 mg, q4hr, PO, PRN) for breakthrough pain Dexamethasone 4 mg qam Ativan, 0.5 mg, PO, TID - Continue Zofran 8mgs TID prn for nausea, Haldol 1mg prn if zofran not effective. - Continue Miralax 17mg, TID, CHELI; milk of magnesia 5mL prn; hyoscyamine 0.125mg q4, PRN; senna 17.2mg, PO, BID, PRN - Scopolamine for secretions, CHELI - [facility] Hospice following. Pending placement. 2) Pancreatic cancer - Diagnosed about 1 year ago - Was previously on chemotherapy - Percutaneous tube placed 3-4 weeks ago for drainage of pancreatic cancer cyst 3) COPD - DuoNebs 3mL prn - Flonase 1 spray QD - Stiolto Respimat (tiotropium bromide - olodaterol) 2.5mcg-2.5mcg, 2 puffs daily 4) CAD/[place] - Continue home meds carvedilol 3.125mg BID, ranolazine ER 500mg BID, losartan 25mg QD Code status: DNR/DNI Disposition: Med-Surg FENGI: Regular, soft and bite-sized diet output: purewick for urine, diaper for BM Admission and Anticipated Discharge Date Admission Date: December 20, 2023 Supervising Physician Co-Signing Physician Notes I personally examined the patient and verified all pak points of history and exam, discussed case, and agree with decision making with Dr Escamilla no HPI or ROS today for me, sleeping comfortably, sitting up in bed. Vitals noted, breathing unlabored. nad. breathing unlabored no accessory muscles good effort skin no rashes no pallor or icterus Impression and plan Pancreatic cancer with intractable abdominal pain Continue comfort measures pain appears controlled since 01/09 increase in fentanyl patch. continue this and prn oxycodone. disposition - not safe at home alone, case management reviewing for ?other options Additional per resident documentation Subjective Patient is 63 yo F w/ a PMHx of bipolar d/o, HLD, Hx of [place], COPD, metastatic pancreatic cancer, hepatitis B, hepatitis C, arthritis who presented to the hospital for admission for hospice care. Patient is AAO x 3 (not to time). Patient w/ abdominal pain but unable to be redirected regarding questions about the pain severity or exact location of abdominal pain. Review of Systems Review of Systems: reviewed, per HPI Constitutional: no fever and no chills Respiratory: no cough and no dyspnea Cardiovascular: no chest pain and no palpitations Gastrointestinal: + abdominal pain; no constipation (patie nt had a BM last night) Genitourinary: no dysuria and no urinary frequency Integumentary: + non-healing lesions (pressure ulcer ar ound anus, perianally) Neurologic: no tingling, no numbness and no headache(s) Physical Exam Constitutional: WD/WN, vitals as above Respiratory: normal respiratory effort, lungs clear to auscultation Cardiovascular: RRR, no murmur, no edema Gastrointestinal (Abdomen): Inspection/Auscultation: abdomen normal to inspection and normal bowel sounds; abdomen not distended Percussion/Palpation: + abdomen tender (diffusely moderately tender over entire abdomen) Skin: + purpura (over both hands bilaterally) Psychiatric: Orientation: alert, oriented to person, oriented to place and cooperative Results & Data Results & Data Vital Signs (Past 12 Hours) Vital Signs Temp Pulse Resp BP Pulse Ox O2 Del Method 01/12/24 08:32 36.4 C L 68 16 177/100 H 96 Room Air 01/12/24 08:30 Room Air (4) Abdominal pain Abdominal location: unspecified location Qualified Code(s): R10.9 - Unspecified abdominal pain (5) COPD (chronic obstructive pulmonary disease) COPD type: unspecified COPD Qualified Code(s): J44.9 - Chronic obstructive pulmonary disease, unspecified
--- NOTE | 2024-01-12 14:51 | Billing Data ---
Date of Service January 12, 2024 Coding Level of Care Code 10976 SUB INP/OBS CARE
[2024-01-13] MEDS: ACETAMINOPHEN 325 MG TAB PO PRN (05:28)
--- NOTE | 2024-01-13 07:43 | Hospitalist Progress Note ---
Date of Service January 13, 2024 Assessment & Plan (1) Admission for hospice care: (2) Cancer related pain: (3) Metastasis from pancreatic cancer: (4) Abdominal pain: (5) COPD (chronic obstructive pulmonary disease): (6) History of [place] (myocardial infarction): (7) Bipolar disorder: Plan 63 y/o F (Goes by [employer]) presented to the ER via EMS sent in by hospice for hospice admission for pain control as unable to get this under control at home despite Fentanyl patch and hydromorphone PO. Referred here by Dr. Hoffmann since she lives alone and has no local support and was concerned about inability to care for self in regards to medication self dispensing. Pending placement. Not safe for return home. 1) Cancer related pain and admission for hospice care - Pain well controlled at present with higher dose fentanyl patch, still requiring intermittent prn oxycodone for breakthrough pain - Continue current medication regimen: TD-fentanyl 100 mcg + Oxycodone (5 mg, q4hr, PO, PRN) for breakthrough pain Dexamethasone 4 mg qam Ativan, 0.5 mg, PO, TID - Continue Zofran 8mgs TID prn for nausea, Haldol 1mg prn if zofran not effective. - Continue Miralax 17mg, TID, CHELI; milk of magnesia 5mL prn; hyoscyamine 0.125mg q4, PRN; senna 17.2mg, PO, BID, PRN - Glycopyrrolate prn for secretions - [facility] Hospice following. Pending placement. 2) Pancreatic cancer - Diagnosed about 1 year ago - Was previously on chemotherapy - Percutaneous tube placed 3-4 weeks ago for drainage of pancreatic cancer cyst 3) COPD - DuoNebs 3mL prn - Flonase 1 spray QD - Stiolto Respimat 1 puff daily 4) CAD/[place] - Continue home meds carvedilol 3.125mg BID, ranolazine ER 500mg BID, losartan 25mg QD Code status: DNR/DNI Disposition: Med-Surg FENGI: Regular, soft and bite-sized diet output: purewick for urine, diaper for BM Admission and Anticipated Discharge Date Admission Date: December 20, 2023 Supervising Physician Co-Signing Physician Notes Attending Physician Supervision Note: I independently interviewed and examined the patient and verified the pak history and physical, reviewed labs and image studies and agree with findings and care plan noted above. Alert in bed but confused. Unable to get any history. Vitals noted, breathing unlabored. nad. breathing unlabored no accessory muscles good effort skin no rashes no pallor or icterus Pancreatic cancer with intractable abdominal pain -Continue comfort measures -pain controlled since 01/09 increase in fentanyl patch. continue prn oxycodone. -disposition - not safe at home alone, case management reviewing for ?other options Additional per resident documentation Subjective Patient is 63 yo F w/ a PMHx of bipolar d/o, HLD, Hx of [place], COPD, metastatic pancreatic cancer, hepatitis B, hepatitis C, arthritis who presented to the hospital for admission for hospice care. Patient seen at bedside this morning, reports that pain has been well controlled, no complaints at this time. Review of Systems Review of Systems: as per HPI Physical Exam Constitutional: WD/WN, vitals as above Respiratory: Normal respiratory effort, no accessory muscle use or conversational dyspnea Psychiatric: A+Ox3, euthymic affect Results & Data Results & Data Vital Signs (Past 12 Hours) Vital Signs O2 Del Method 01/12/24 20:10 Room Air Resident Activity Tracking Resident Involvement: Resident Care Provided Care Provided: Adult Hospital Medicine (4) Abdominal pain Abdominal location: unspecified location Qualified Code(s): R10.9 - Unspecified abdominal pain (5) COPD (chronic obstructive pulmonary disease) COPD type: unspecified COPD Qualified Code(s): J44.9 - Chronic obstructive pulmonary disease, unspecified
--- NOTE | 2024-01-14 07:16 | Hospitalist Progress Note ---
Date of Service January 14, 2024 Assessment & Plan (1) Admission for hospice care: (2) Cancer related pain: (3) Metastasis from pancreatic cancer: (4) Abdominal pain: (5) COPD (chronic obstructive pulmonary disease): (6) History of [place] (myocardial infarction): (7) Bipolar disorder: Plan 63 y/o F (Goes by [employer]) presented to the ER via EMS sent in by hospice for hospice admission for pain control as unable to get this under control at home despite Fentanyl patch and hydromorphone PO. Referred here by Dr. Hoffmann since she lives alone and has no local support and was concerned about inability to care for self in regards to medication self dispensing. Pending placement. Not safe for return home. 1) Cancer related pain and admission for hospice care - Pain well controlled at present with higher dose fentanyl patch, still requiring intermittent prn oxycodone for breakthrough pain - Continue current medication regimen: TD-fentanyl 100 mcg + Oxycodone (5 mg, q4hr, PO, PRN) for breakthrough pain Dexamethasone 4 mg qam Ativan, 0.5 mg, PO, TID - Continue Zofran 8mgs TID prn for nausea, Haldol 1mg prn if zofran not effective. - Continue Miralax 17mg, TID, CHELI; milk of magnesia 5mL prn; hyoscyamine 0.125mg q4, PRN; senna 17.2mg, PO, BID, PRN - Glycopyrrolate prn for secretions - [facility] following. Pending placement - [facility] following. 2) Pancreatic cancer - Diagnosed about 1 year ago - Was previously on chemotherapy - Percutaneous tube placed 3-4 weeks ago for drainage of pancreatic cancer cyst 3) COPD - DuoNebs 3mL prn - Flonase 1 spray QD - Stiolto Respimat 1 puff daily 4) CAD/[place] - Continue home meds carvedilol 3.125mg BID, ranolazine ER 500mg BID, losartan 25mg QD Code status: DNR/DNI Disposition: Med-Surg FENGI: Regular, soft and bite-sized diet output: purewick for urine, diaper for BM Admission and Anticipated Discharge Date Admission Date: December 20, 2023 Supervising Physician Co-Signing Physician Notes Attending Physician Supervision Note: I independently interviewed and examined the patient and verified the pak history and physical, reviewed labs and image studies and agree with findings and care plan noted above. Unable to get any history. Vitals noted, breathing unlabored. nad. breathing unlabored no accessory muscles good effort skin no rashes no pallor or icterus Pancreatic cancer with intractable abdominal pain -Continue comfort measures -pain controlled since 01/09 increase in fentanyl patch. continue prn oxycodone. -disposition - not safe at home alone, case management reviewing for ?other options Additional per resident documentation Subjective Patient is 63 yo F w/ a PMHx of bipolar d/o, HLD, Hx of [place], COPD, metastatic pancreatic cancer, hepatitis B, hepatitis C, arthritis who presented to the hospital for admission for hospice care. Patient seen at bedside this morning, oriented only to self, very confused - from what she reports, pain has been well controlled, no complaints at this time. Review of Systems Review of Systems: as per HPI Physical Exam Constitutional: WD/WN, vitals as above Respiratory: no respiratory distress or conversational dyspnea appreciated. Neurologic: very confused, oriented only to self. Results & Data Results & Data Vital Signs (Past 12 Hours) Vital Signs O2 Del Method 01/13/24 20:00 Room Air Resident Activity Tracking Resident Involvement: Resident Care Provided Care Provided: Adult Hospital Medicine (4) Abdominal pain Abdominal location: unspecified location Qualified Code(s): R10.9 - Unspecified abdominal pain (5) COPD (chronic obstructive pulmonary disease) COPD type: unspecified COPD Qualified Code(s): J44.9 - Chronic obstructive pulmonary disease, unspecified
--- NOTE | 2024-01-15 07:17 | Hospitalist Progress Note ---
Date of Service January 15, 2024 Assessment & Plan (1) Admission for hospice care: (2) Cancer related pain: (3) Metastasis from pancreatic cancer: (4) Abdominal pain: (5) COPD (chronic obstructive pulmonary disease): (6) History of [place] (myocardial infarction): (7) Bipolar disorder: Plan 63 y/o F (Goes by [employer]) presented to the ER via EMS sent in by hospice for hospice admission for pain control as unable to get this under control at home despite Fentanyl patch and hydromorphone PO. Referred here by Dr. Hoffmann since she lives alone and has no local support and was concerned about inability to care for self in regards to medication self dispensing. Pending placement. Not safe for return home. 1) Cancer related pain and admission for hospice care - Continue higher dose fentanyl patch, no prn oxycodone given yesterday or today, question whether change in affect today related to pain - continue to monitor - Continue current medication regimen: TD-fentanyl 100 mcg + Oxycodone (5 mg, q4hr, PO, PRN) for breakthrough pain Dexamethasone 4 mg qam Ativan, 0.5 mg, PO, TID - Continue Zofran 8mgs TID prn for nausea, Haldol 1mg prn if zofran not effective. - Continue Miralax 17mg, TID, CHELI; milk of magnesia 5mL prn; hyoscyamine 0.125mg q4, PRN; senna 17.2mg, PO, BID, PRN - Glycopyrrolate prn for secretions - [facility] Hospice following. Pending placement - [facility] following. 2) Pancreatic cancer - Diagnosed about 1 year ago - Was previously on chemotherapy - Percutaneous tube placed 3-4 weeks ago for drainage of pancreatic cancer cyst 3) COPD - DuoNebs 3mL prn - Flonase 1 spray QD - Stiolto Respimat 1 puff daily 4) CAD/[place] - Continue home meds carvedilol 3.125mg BID, ranolazine ER 500mg BID, losartan 25mg QD Code status: DNR/DNI Disposition: Med-Surg FENGI: Regular, soft and bite-sized diet output: purewick for urine, diaper for BM Admission and Anticipated Discharge Date Admission Date: December 20, 2023 Supervising Physician Co-Signing Physician Notes Attending Physician Supervision Note: I independently interviewed and examined the patient and verified the pak history and physical, reviewed labs and image studies and agree with findings and care plan noted above. Tearful this morning per nursing but pleasant in the afternoon when I visited Vitals noted, breathing unlabored. nad. breathing unlabored no accessory muscles good effort skin no rashes no pallor or icterus Not oriented to place or person. Pancreatic cancer with intractable abdominal pain Delirium -Continue comfort measures -pain controlled since 01/09 increase in fentanyl patch. continue prn oxycodone. -disposition - not safe at home alone, case management reviewing for ?other options Additional per resident documentation Subjective Patient is 63 yo F w/ a PMHx of bipolar d/o, HLD, Hx of [place], COPD, metastatic pancreatic cancer, hepatitis B, hepatitis C, arthritis who presented to the hospital for admission for hospice care. Patient seen at bedside this morning, oriented only to self, very confused - unable to tell whether she is having any pain. Pt tearful today, which has not been the case in days prior. Hospice nurse present during encounter, also states that she is usually not tearful like this. Review of Systems Review of Systems: as per HPI Physical Exam Constitutional: WD/WN, vitals as above Psychiatric: Oriented only to self, unable to convey symptoms Tearful affect Resident Activity Tracking Resident Involvement: Resident Care Provided Care Provided: Adult Hospital Medicine (4) Abdominal pain Abdominal location: unspecified location Qualified Code(s): R10.9 - Unspecified abdominal pain (5) COPD (chronic obstructive pulmonary disease) COPD type: unspecified COPD Qualified Code(s): J44.9 - Chronic obstructive pulmonary disease, unspecified
--- NOTE | 2024-01-16 07:07 | Hospitalist Progress Note ---
Date of Service January 16, 2024 Assessment & Plan (1) Admission for hospice care: (2) Cancer related pain: (3) Metastasis from pancreatic cancer: (4) Abdominal pain: (5) COPD (chronic obstructive pulmonary disease): (6) History of [place] (myocardial infarction): (7) Bipolar disorder: Plan 63 y/o F (Goes by [employer]) presented to the ER via EMS sent in by hospice for hospice admission for pain control as unable to get this under control at home despite Fentanyl patch and hydromorphone PO. Referred here by Dr. Hoffmann since she lives alone and has no local support and was concerned about inability to care for self in regards to medication self dispensing. Pending placement. Not safe for return home. 1) Cancer related pain and admission for hospice care - Continue higher dose fentanyl patch, no prn oxycodone given yesterday or today, question whether change in affect today related to pain - continue to monitor - Continue current medication regimen: TD-fentanyl 100 mcg + Oxycodone (5 mg, q4hr, PO, PRN) for breakthrough pain Dexamethasone 4 mg qam Ativan, 0.5 mg, PO, TID - Continue Zofran 8mgs TID prn for nausea, Haldol 1mg prn if zofran not effective. - Continue Miralax 17mg, TID, PRN; milk of magnesia 5mL prn; hyoscyamine 0.125mg q4, PRN; senna 17.2mg, PO, BID, PRN - Glycopyrrolate prn for secretions - [facility] Hospice following. Pending placement - CM following. 2) Pancreatic cancer - Diagnosed about 1 year ago - Was previously on chemotherapy - Percutaneous tube placed 3-4 weeks ago for drainage of pancreatic cancer cyst 3) COPD - DuoNebs 3mL prn - Flonase 1 spray QD - Stiolto Respimat 1 puff daily 4) CAD/[place] - Continue home meds carvedilol 3.125mg BID, ranolazine ER 500mg BID, losartan 25mg QD Code status: DNR/DNI Disposition: Med-Surg FENGI: Regular, soft and bite-sized diet output: purewick for urine, diaper for BM Admission and Anticipated Discharge Date Admission Date: December 20, 2023 Supervising Physician Co-Signing Physician Notes Attending Physician Supervision Note: I independently interviewed and examined the patient and verified the pak history and physical, reviewed labs and image studies and agree with findings and care plan noted above. Alert and communicating but disoriented. Vitals noted, breathing unlabored. nad. breathing unlabored no accessory muscles good effort skin no rashes no pallor or icterus Not oriented to time/place. Pancreatic cancer with intractable abdominal pain Delirium -Continue comfort measures -pain controlled since 01/09 increase in fentanyl patch. continue prn oxycodone. -disposition - not safe at home alone, case management reviewing for ?other options Additional per resident documentation Subjective Patient is 63 yo F w/ a PMHx of bipolar d/o, HLD, Hx of [place], COPD, metastatic pancreatic cancer, hepatitis B, hepatitis C, arthritis who presented to the hospital for admission for hospice care. Patient seen at bedside this morning, oriented only to self, very confused - unclear about whether she is having any pain. Pt with brighter affect when seen but noted to have ongoing tearfulness per nursing. Review of Systems Review of Systems: as per HPI Physical Exam Constitutional: WD/WN, vitals as above Psychiatric: Oriented to self, normal affect at time of evaluation Results & Data Results & Data Vital Signs (Past 12 Hours) Vital Signs O2 Del Method 01/15/24 20:30 Room Air Resident Activity Tracking Resident Involvement: Resident Care Provided Care Provided: Adult Hospital Medicine (4) Abdominal pain Abdominal location: unspecified location Qualified Code(s): R10.9 - Un specified abdominal pain (5) COPD (chronic obstructive pulmonary disease) COPD type: unspecified COPD Qualified Code(s): J44.9 - Chronic obstructive pulmonary disease, unspecified
[2024-01-16] MEDS ORDERED: POLYETHYLENE (MIRALAX) 17 GM PACK PO PRN (10:37)
--- NOTE | 2024-01-17 07:20 | Hospitalist Progress Note ---
Date of Service January 17, 2024 Assessment & Plan (1) Admission for hospice care: (2) Cancer related pain: (3) Metastasis from pancreatic cancer: (4) Abdominal pain: (5) COPD (chronic obstructive pulmonary disease): (6) History of [place] (myocardial infarction): (7) Bipolar disorder: Plan 63 y/o F ([facility]es by [facility]) presented to the ER via EMS sent in by hospice for hospice admission for pain control as unable to get this under control at home despite Fentanyl patch and hydromorphone PO. Referred here by Dr. Hoffmann since she lives alone and has no local support and was concerned about inability to care for self in regards to medication self dispensing. Pending placement. Not safe for return home. 1) Cancer related pain and admission for hospice care - Continue current medication regimen: TD-fentanyl 100 mcg + Oxycodone (5 mg, q4hr, PO, PRN) for breakthrough pain Dexamethasone 4 mg qam Ativan, 0.5 mg, PO, TID - Continue Zofran 8mgs TID prn for nausea, Haldol 1mg prn if zofran not effective. - Continue Miralax 17mg, TID, PRN; milk of magnesia 5mL prn; hyoscyamine 0.125mg q4, PRN; senna 17.2mg, PO, BID, PRN - Glycopyrrolate prn for secretions - [facility] Hospice following. Pending placement - CM following. 2) Pancreatic cancer - Diagnosed about 1 year ago - Was previously on chemotherapy - Percutaneous tube placed 3-4 weeks ago for drainage of pancreatic cancer cyst 3) COPD - DuoNebs 3mL prn - Flonase 1 spray QD - Stiolto Respimat 1 puff daily 4) CAD/[place] - Continue home meds carvedilol 3.125mg BID, ranolazine ER 500mg BID, losartan 25mg QD 5) H/o Bipolar Disorder, Delirium: - Start Lexapro 10mg daily + Zyprexa 2.5mg BID as recommended by Dr. Hoffmann Code status: DNR/DNI Disposition: Med-Surg FENGI: Regular, soft and bite-sized diet Admission and Anticipated Discharge Date Admission Date: December 20, 2023 Supervising Physician Co-Signing Physician Notes Attending Physician Supervision Note: I independently interviewed and examined the patient and verified the pak history and physical, reviewed labs and image studies and agree with findings and care plan noted above. Alert and communicating but disoriented. Vitals noted, breathing unlabored. nad. breathing unlabored no accessory muscles good effort skin no rashes no pallor or icterus Not oriented to time/place. Pancreatic cancer with intractable abdominal pain Delirium -Continue comfort measures -pain controlled since 01/09 increase in fentanyl patch. continue prn oxycodone. -Added zyprexa 2.5mgs BID per hospice recommendation. -disposition - not safe at home alone, case management reviewing for ?other options Additional per resident documentation Subjective Patient is 63 yo F w/ a PMHx of bipolar d/o, HLD, Hx of [place], COPD, metastatic pancreatic cancer, hepatitis B, hepatitis C, arthritis who presented to the hospital for admission for hospice care. Patient seen at bedside this morning, oriented only to self, very confused - unclear about whether she is having any pain but presents with brighter affect today. Review of Systems Review of Systems: as per HPI Physical Exam Constitutional: WD/WN, vitals as above Psychiatric: AOx1, speech with loose associations, brighter affect today Results & Data Results & Data Vital Signs (Past 12 Hours) Vital Signs O2 Del Method 01/16/24 19:30 Room Air Resident Activity Tracking Resident Involvement: Resident Care Provided Care Provided: Adult Hospital Medicine (4) Abdominal pain Abdominal location: unspecified location Qualified Code(s): R10.9 - Unspecified abdominal pain (5) COPD (chronic obstructive pulmonary disease) COPD type: unspecified COPD Qualified Code(s): J44.9 - Chronic obstructive pulmonary disease, unspecified
[2024-01-17] MEDS: ESCITALOPRAM OXALATE 10 MG TAB PO SCH (10:26)
[2024-01-17] MEDS: OLANZAPINE 2.5 MG TAB PO SCH (10:26)
--- NOTE | 2024-01-18 07:58 | Hospitalist Progress Note ---
Date of Service January 18, 2024 Assessment & Plan (1) Admission for hospice care: (2) Cancer related pain: (3) Metastasis from pancreatic cancer: (4) Abdominal pain: (5) COPD (chronic obstructive pulmonary disease): (6) History of [place] (myocardial infarction): (7) Bipolar disorder: Plan 63 y/o F ([facility]es by [facility]) presented to the ER via EMS sent in by hospice for hospice admission for pain control as unable to get this under control at home despite Fentanyl patch and hydromorphone PO. Referred here by Dr. Hoffmann since she lives alone and has no local support and was concerned about inability to care for self in regards to medication self dispensing. Pending placement. Not safe for return home. 1) Cancer related pain and admission for hospice care - Continue current medication regimen: TD-fentanyl 100 mcg + Oxycodone (5 mg, q4hr, PO, PRN) for breakthrough pain Dexamethasone 4 mg qam Ativan, 0.5 mg, PO, TID - Continue Zofran 8mgs TID prn for nausea, Haldol 1mg prn if zofran not effective. - Continue Miralax 17mg, TID, PRN; milk of magnesia 5mL prn; hyoscyamine 0.125mg q4, PRN; senna 17.2mg, PO, BID, PRN - Glycopyrrolate prn for secretions - [facility] Hospice following. Pending placement - CM following. 2) Pancreatic cancer - Diagnosed about 1 year ago - Was previously on chemotherapy - Percutaneous tube placed 3-4 weeks ago for drainage of pancreatic cancer cyst 3) COPD - DuoNebs 3mL prn - Flonase 1 spray QD - Stiolto Respimat 1 puff daily 4) CAD/[place] - Continue home meds carvedilol 3.125mg BID, ranolazine ER 500mg BID, losartan 25mg QD 5) H/o Bipolar Disorder, Delirium: - Continue Lexapro 10mg daily + Zyprexa 2.5mg BID as recommended by Dr. Hoffmann Code status: DNR/DNI Disposition: Med-Surg FENGI: Regular, soft and bite-sized diet Admission and Anticipated Discharge Date Admission Date: December 20, 2023 Supervising Physician Co-Signing Physician Notes Attending Physician Supervision Note: I independently interviewed and examined the patient and verified the pak history and physical, reviewed labs and image studies and agree with findings and care plan noted above. comfortable this am. Vitals noted, breathing unlabored. nad. breathing unlabored no accessory muscles good effort skin no rashes no pallor or icterus Not oriented to time/place. Pancreatic cancer with intractable abdominal pain Delirium -Continue comfort measures -pain controlled since 01/09 increase in fentanyl patch. continue prn oxycodone. -Added zyprexa 2.5mgs BID per hospice recommendation. -disposition - not safe at home alone, case management reviewing for ?other options Additional per resident documentation Subjective Patient is 63 yo F w/ a PMHx of bipolar d/o, HLD, Hx of [place], COPD, metastatic pancreatic cancer, hepatitis B, hepatitis C, arthritis who presented to the hospital for admission for hospice care. Patient seen at bedside this morning, oriented only to self, very confused - denies pain. Review of Systems Review of Systems: as per HPI Physical Exam Physical Exam: Constitutional: WD/WN, vitals as a marko Psychiatric: AOx1, speech with loose association s, brighter affect Resident Activity Tracking Resident Involvement: Resident Care Provided Care Provided: Adult Hospital Medicine (4) Abdominal pain Abdominal location: unspecified location Qualified Code(s): R10.9 - Unspecified abdominal pain (5) COPD (chronic obstructive pulmonary disease) COPD type: unspecified COPD Qualified Code(s): J44.9 - Chronic obstructive pulmonary disease, unspecified
--- NOTE | 2024-01-19 07:46 | Hospitalist Progress Note ---
Date of Service January 19, 2024 Assessment & Plan (1) Admission for hospice care: (2) Cancer related pain: (3) Metastasis from pancreatic cancer: (4) Abdominal pain: (5) COPD (chronic obstructive pulmonary disease): (6) History of [place] (myocardial infarction): (7) Bipolar disorder: Plan 63 y/o F ([facility]es by [facility]) presented to the ER via EMS sent in by hospice for hospice admission for pain control as unable to get this under control at home despite Fentanyl patch and hydromorphone PO. Referred here by Dr. Hoffmann since she lives alone and has no local support and was concerned about inability to care for self in regards to medication self dispensing. Pending placement. Not safe for return home. 1) Cancer related pain and admission for hospice care - Continue current medication regimen: TD-fentanyl 100 mcg + Oxycodone (5 mg, q4hr, PO, PRN) for breakthrough pain Dexamethasone 4 mg qam Ativan, 0.5 mg, PO, TID - Continue Zofran 8mgs TID prn for nausea, Haldol 1mg prn if zofran not effective. - Continue Miralax 17mg, TID, PRN; milk of magnesia 5mL prn; hyoscyamine 0.125mg q4, PRN; senna 17.2mg, PO, BID, PRN - Glycopyrrolate prn for secretions - [facility] Hospice following. Pending placement - CM following. 2) Pancreatic cancer - Diagnosed about 1 year ago - Was previously on chemotherapy - Percutaneous tube placed previously for drainage of pancreatic cancer cyst 3) COPD - DuoNebs 3mL prn - Flonase 1 spray QD - Stiolto Respimat 1 puff daily 4) CAD/[place] - Continue home meds carvedilol 3.125mg BID, ranolazine ER 500mg BID, losartan 25mg QD 5) H/o Bipolar Disorder, Delirium: - Continue Lexapro 10mg daily + Zyprexa 2.5mg BID as recommended by Dr. Hoffmann 6)Decubitus Ulcer: - Sacral decubitus ulcer, nursing to manage as appropriate. Code status: DNR/DNI Disposition: Med-Surg FENGI: Regular, soft and bite-sized diet Admission and Anticipated Discharge Date Admission Date: December 20, 2023 Supervising Physician Co-Signing Physician Notes Attending Physician Supervision Note: I independently interviewed and examined the patient and verified the pak history and physical, reviewed labs and image studies and agree with findings an d care plan noted above. comfortable this am. Vitals noted, breathing unlabored. nad. breathing unlabored no accessory muscles good effort skin no rashes no pallor or icterus Not oriented to time/place. Pancreatic cancer with intractable abdominal pain Delirium -Continue comfort measures -pain controlled since 01/09 increase in fentanyl patch. continue prn oxycodone. -Added zyprexa 2.5mgs BID per hospice recommendation. -disposition - not safe at home alone, case management reviewing for ?other options Decubitus ulcer - per Nursing protocol protocol Additional per resident documentation Subjective Patient is 63 yo F w/ a PMHx of bipolar d/o, HLD, Hx of [place], COPD, metastatic pancreatic cancer, hepatitis B, hepatitis C, arthritis who presented to the hospital for admission for hospice care. Patient seen at bedside this morning, oriented only to self, very confused - denies pain. Review of Systems Review of Systems: as per HPI Physical Exam Physical Exam: Constitutional: WD/WN, vitals as a marko Psychiatric: AOx1, speech with loose association s, brighter affect Resident Activity Tracking Resident Involvement: Resident Care Provided Care Provided: Adult Hospital Medicine (4) Abdominal pain Abdominal location: unspecified location Qualified Code(s): R10.9 - Unspecified abdominal pain (5) COPD (chronic obstructive pulmonary disease) COPD type: unspecified COPD Qualified Code(s): J44.9 - Chronic obstructive pulmonary disease, unspecified
[2024-01-19] MEDS ORDERED: ALUMINUM/MAGNESIUM SUSP 30 ML UDC PO PRN (16:08)
[2024-01-19] MEDS ORDERED: ACETAMINOPHEN 325 MG TAB PO PRN (16:08)
[2024-01-19] MEDS ORDERED: HYOSCYAMINE SULFATE 0.125 MG TAB SL PRN (16:09)
[2024-01-19] MEDS ORDERED: ONDANSETRON INJ 2 MG/ML 2 ML VIAL IV PRN (16:09)
--- NOTE | 2024-01-20 06:56 | Hospitalist Progress Note ---
Date of Service January 20, 2024 Assessment & Plan (1) Admission for hospice care: (2) Cancer related pain: (3) Metastasis from pancreatic cancer: (4) Abdominal pain: (5) COPD (chronic obstructive pulmonary disease): (6) History of [place] (myocardial infarction): (7) Bipolar disorder: Plan 63 y/o F (Goes by [facility]) presented to the ER via EMS sent in by hospice for hospice admission for pain control as unable to get this under control at home despite Fentanyl patch and hydromorphone PO. Referred here by Dr. Hoffmann since she lives alone and has no local support and was concerned about inability to care for self in regards to medication self dispensing. Pending placement. Not safe for return home. 1) Cancer related pain and admission for hospice care - Continue current medication regimen: TD-fentanyl 100 mcg + Oxycodone (5 mg, q4hr, PO, PRN) for breakthrough pain Dexamethasone 4 mg qam Ativan, 0.5 mg, PO, TID - Continue Zofran 8mgs TID prn for nausea, Haldol 1mg prn if zofran not effective. - Continue Miralax 17mg, TID, PRN; milk of magnesia 5mL prn; hyoscyamine 0.125mg q4, PRN; senna 17.2mg, PO, BID, PRN - Glycopyrrolate prn for secretions - [facility] Hospice following. Pending placement - CM following. 2) Pancreatic cancer - Diagnosed about 1 year ago - Was previously on chemotherapy - Percutaneous tube placed previously for drainage of pancreatic cancer cyst 3) COPD - DuoNebs 3mL prn - Flonase 1 spray QD - Stiolto Respimat 1 puff daily 4) CAD/[place] - Continue home meds carvedilol 3.125mg BID, ranolazine ER 500mg BID, losartan 25mg QD 5) H/o Bipolar Disorder, Delirium: - Continue Lexapro 10mg daily + Zyprexa 2.5mg BID as recommended by Dr. Hoffmann 6)Decubitus Ulcer: - Sacral decubitus ulcer, nursing to manage as appropriate. Code status: DNR/DNI Disposition: Med-Surg FENGI: Regular, soft and bite-sized diet Admission and Anticipated Discharge Date Admission Date: December 20, 2023 Supervising Physician Co-Signing Physician Notes I personally examined the patient and verified all pak points of history and exam, discussed case, and agree with decision making with Dr Turner sitting up eating bright and smiling, confused, but denies needs. nursing denies needs as well. Vitals noted, breathing unlabored. nad. breathing unlabored no accessory muscles good effort skin no rashes no pallor or icterus Not oriented to time/place. Pancreatic cancer with intractable abdominal pain Delirium -Continue comfort measures, overall appears comfortable -pain controlled since 01/09 increase in fentanyl patch. continue prn oxycodone. -Added zyprexa 2.5mgs BID per hospice recommendation. -disposition - not safe at home alone, case management reviewing for ?other options Decubitus ulcer - per Nursing protocol protocol Additional per resident documentation Subjective Patient is 63 yo F w/ a PMHx of bipolar d/o, HLD, Hx of [place], COPD, metastatic pancreatic cancer, hepatitis B, hepatitis C, arthritis who presented to the hospital for admission for hospice care. Patient seen at bedside this morning, oriented only to self, very confused - endorses left abdominal pain today. Review of Systems Review of Systems: as per HPI Physical Exam Physical Exam: Constitutional: WD/WN, vitals as a marko Psychiatric: AOx1, speech with loose association s, brighter affect Results & Data Results & Data Vital Signs (Past 12 Hours) Vital Signs O2 Del Method 01/19/24 21:14 Room Air Resident Activity Tracking Resident Involvement: Resident Care Provided Care Provided: Adult Hospital Medicine (4) Abdominal pain Abdominal location: unspecified location Qualified Code(s): R10.9 - Unspecified abdominal pain (5) COPD (chronic obstructive pulmonary disease) COPD type: unspecified COPD Qualified Code(s): J44.9 - Chronic obstructive pulmonary disease, unspecified
--- NOTE | 2024-01-20 12:31 | Billing Data ---
Date of Service January 20, 2024 Coding Level of Care Code 62763 SUB INP/OBS CARE
--- NOTE | 2024-01-21 06:51 | Hospitalist Progress Note ---
Date of Service January 21, 2024 Assessment & Plan (1) Admission for hospice care: (2) Cancer related pain: (3) Metastasis from pancreatic cancer: (4) Abdominal pain: (5) COPD (chronic obstructive pulmonary disease): (6) History of [place] (myocardial infarction): (7) Bipolar disorder: Plan 63 y/o F (Goes by [facility]) presented to the ER via EMS sent in by hospice for hospice admission for pain control as unable to get this under control at home despite Fentanyl patch and hydromorphone PO. Referred here by Dr. Hoffmann since she lives alone and has no local support and was concerned about inability to care for self in regards to medication self dispensing. Pending placement. Not safe for return home. 1) Cancer related pain and admission for hospice care - Continue current medication regimen: TD-fentanyl 100 mcg + Oxycodone (5 mg, q4hr, PO, PRN) for breakthrough pain Dexamethasone 4 mg qam Ativan, 0.5 mg, PO, TID - Continue Zofran 8mgs TID prn for nausea, Haldol 1mg prn if zofran not effective. - Continue Miralax 17mg, TID, PRN; milk of magnesia 5mL prn; hyoscyamine 0.125mg q4, PRN; senna 17.2mg, PO, BID, PRN - Glycopyrrolate prn for secretions - [facility] Hospice following. Pending placement - CM following. 2) Pancreatic cancer - Diagnosed about 1 year ago - Was previously on chemotherapy - Percutaneous tube placed previously for drainage of pancreatic cancer cyst 3) COPD - DuoNebs 3mL prn - Flonase 1 spray QD - Stiolto Respimat 1 puff daily 4) CAD/[place] - Continue home meds carvedilol 3.125mg BID, ranolazine ER 500mg BID, losartan 25mg QD 5) H/o Bipolar Disorder, Delirium: - Continue Lexapro 10mg daily + Zyprexa 2.5mg BID as recommended by Dr. Hoffmann 6)Decubitus Ulcer: - Sacral decubitus ulcer, nursing to manage as appropriate. Code status: DNR/DNI Disposition: Med-Surg FENGI: Regular, soft and bite-sized diet Admission and Anticipated Discharge Date Admission Date: December 20, 2023 Supervising Physician Co-Signing Physician Notes I personally examined the patient and verified all pak points of history and exam, discussed case, and agree with decision making with Dr Turner no new issues identified Vitals noted, breathing unlabored. nad. breathing unlabored no accessory muscles good effort skin no rashes no pallor or icterus Not oriented to time/place. Pancreatic cancer with intractable abdominal pain Delirium -Continue comfort measures, overall appears comfortable again today -pain controlled since 01/09 increase in fentanyl patch. continue prn oxycodone. -Added zyprexa 2.5mgs BID per hospice recommendation. -disposition - not safe at home alone, case management reviewing for ?other options Decubitus ulcer - per Nursing protocol protocol Additional per resident documentation Subjective Patient is 63 yo F w/ a PMHx of bipolar d/o, HLD, Hx of [place], COPD, metastatic pancreatic cancer, hepatitis B, hepatitis C, arthritis who presented to the hospital for admission for hospice care. Patient seen at bedside this morning, oriented only to self, very confused - denies pain today. Review of Systems Review of Systems: as per HPI Physical Exam Physical Exam: Constitutional: WD/WN, vitals as a marko Psychiatric: AOx1, speech with loose association s, brighter affect Results & Data Results & Data Vital Signs (Past 12 Hours) Vital Signs O2 Del Method 01/20/24 19:20 Room Air Resident Activity Tracking Resident Involvement: Resident Care Provided Care Provided: Adult Hospital Medicine (4) Abdominal pain Abdominal location: unspecified location Qualified Code(s): R10.9 - Unspecified abdominal pain (5) COPD (chronic obstructive pulmonary disease) COPD type: unspecified COPD Qualified Code(s): J44.9 - Chronic obstructive pulmonary disease, unspecified
--- NOTE | 2024-01-21 13:09 | Billing Data ---
Date of Service January 21, 2024 Coding Level of Care Code 04289 SUB INP/OBS CARE
--- NOTE | 2024-01-22 07:34 | Hospitalist Progress Note ---
Date of Service January 22, 2024 Assessment & Plan (1) Admission for hospice care: (2) Cancer related pain: (3) Metastasis from pancreatic cancer: (4) Abdominal pain: (5) COPD (chronic obstructive pulmonary disease): (6) History of [place] (myocardial infarction): (7) Bipolar disorder: Plan 63 y/o F (Goes by [facility]) presented to the ER via EMS sent in by hospice for hospice admission for pain control as unable to get this under control at home despite Fentanyl patch and hydromorphone PO. Referred here by Dr. Hoffmann since she lives alone and has no local support and was concerned about inability to care for self in regards to medication self dispensing. Pending placement. Not safe for return home. 1) Cancer related pain and admission for hospice care - Continue current medication regimen: TD-fentanyl 100 mcg + Oxycodone (5 mg, q4hr, PO, PRN) for breakthrough pain Dexamethasone 4 mg qam Ativan, 0.5 mg, PO, TID - Continue Zofran 8mgs TID prn for nausea, Haldol 1mg prn if zofran not effective. - Continue Miralax 17mg, TID, PRN; milk of magnesia 5mL prn; hyoscyamine 0.125mg q4, PRN; senna 17.2mg, PO, BID, PRN - Glycopyrrolate prn for secretions - [facility] following. Pending placement - [facility] following. 2) Pancreatic cancer - Diagnosed about 1 year ago - Was previously on chemotherapy - Percutaneous tube placed previously for drainage of pancreatic cancer cyst 3) COPD - DuoNebs 3mL prn - Flonase 1 spray QD - Stiolto Respimat 1 puff daily 4) CAD/[place] - Continue home meds carvedilol 3.125mg BID, ranolazine ER 500mg BID, losartan 25mg QD 5) H/o Bipolar Disorder, Delirium: - Continue Lexapro 10mg daily + Zyprexa 2.5mg BID as recommended by Dr. Hoffmann 6)Decubitus Ulcer: - Sacral decubitus ulcer, nursing to manage as appropriate. Code status: DNR/DNI Disposition: Med-Surg FENGI: Regular, soft and bite-sized diet Admission and Anticipated Discharge Date Admission Date: December 20, 2023 Supervising Physician Co-Signing Physician Notes I personally examined the patient and verified all pak points of history and exam, discussed case, and agree with decision making with Dr Turner no new issues identified, no problems noted Vitals noted, breathing unlabored. nad. breathing unlabored no accessory muscles good effort skin no rashes no pallor or icterus Not oriented to time/place. Pancreatic cancer with intractable abdominal pain Delirium -Continue comfort measures, overall appears comfortable again today -pain controlled since 01/09 increase in fentanyl patch. continue prn oxycodone. -continue zyprexa 2.5mgs BID per hospice recommendation. -disposition - not safe at home alone, case management reviewing for ?other options Decubitus ulcer - per Nursing protocol protocol Additional per resident documentation Subjective Patient is 63 yo F w/ a PMHx of bipolar d/o, HLD, Hx of [place], COPD, metastatic pancreatic cancer, hepatitis B, hepatitis C, arthritis who presented to the hospital for admission for hospice care. Patient seen at bedside this morning, oriented only to self, very confused - no changes today. Review of Systems Review of Systems: as per HPI Physical Exam Physical Exam: Constitutional: WD/WN, vitals as a marko Psychiatric: AOx1, speech with loose association s, brighter affect Results & Data Results & Data Vital Signs (Past 12 Hours) Vital Signs O2 Del Method 01/21/24 21:52 Room Air Resident Activity Tracking Resident Involvement: Resident Care Provided Care Provided: Adult Hospital Medicine (4) Abdominal pain Abdominal location: unspecified location Qualified Code(s): R10.9 - Unspecified abdominal pain (5) COPD (chronic obstructive pulmonary disease) COPD type: unspecified COPD Qualified Code(s): J44.9 - Chronic obstructive pulmonary disease, unspecified
--- NOTE | 2024-01-22 15:52 | Billing Data ---
Date of Service January 22, 2024 Coding Level of Care Code 47528 SUB INP/OBS CARE
--- NOTE | 2024-01-23 07:32 | Hospitalist Progress Note ---
Date of Service January 23, 2024 Assessment & Plan (1) Admission for hospice care: (2) Cancer related pain: (3) Metastasis from pancreatic cancer: (4) Abdominal pain: (5) COPD (chronic obstructive pulmonary disease): (6) History of [place] (myocardial infarction): (7) Bipolar disorder: Plan 63 y/o F (Goes by [facility]) presented to the ER via EMS sent in by hospice for hospice admission for pain control as unable to get this under control at home despite Fentanyl patch and hydromorphone PO. Referred here by Dr. Hoffmann since she lives alone and has no local support and was concerned about inability to care for self in regards to medication self dispensing. Pending placement. Not safe for return home. 1) Cancer related pain and admission for hospice care - Continue current medication regimen: TD-fentanyl 100 mcg + Oxycodone (5 mg, q4hr, PO, PRN) for breakthrough pain Dexamethasone 4 mg qam Ativan, 0.5 mg, PO, TID - Continue Zofran 8mgs TID prn for nausea, Haldol 1mg prn if zofran not effective. - Continue Miralax 17mg, TID, PRN; milk of magnesia 5mL prn; hyoscyamine 0.125mg q4, PRN; senna 17.2mg, PO, BID, PRN - Glycopyrrolate prn for secretions - [facility] following. Pending placement - [facility] following. 2) Pancreatic cancer - Diagnosed about 1 year ago - Was previously on chemotherapy - Percutaneous tube placed previously for drainage of pancreatic cancer cyst 3) COPD - DuoNebs 3mL prn - Flonase 1 spray QD - Stiolto Respimat 1 puff daily 4) CAD/[place] - Continue home meds carvedilol 3.125mg BID, ranolazine ER 500mg BID, losartan 25mg QD 5) H/o Bipolar Disorder, Delirium: - Continue Lexapro 10mg daily + Zyprexa 2.5mg BID as recommended by Dr. Hoffmann 6)Decubitus Ulcer: - Sacral decubitus ulcer, nursing to manage as appropriate. Code status: DNR/DNI Disposition: Med-Surg FENGI: Regular, soft and bite-sized diet Admission and Anticipated Discharge Date Admission Date: December 20, 2023 Supervising Physician Co-Signing Physician Notes I personally examined the patient and verified all pak points of history and exam, discussed case, and agree with decision making with Dr Johnny santiago in bed. no new issues. Vitals noted, breathing unlabored. nad. breathing unlabored no accessory muscles good effort skin no rashes no pallor or icterus Not oriented to time/place. Pancreatic cancer with intractable abdominal pain Delirium -Continue comfort measures, overall appears comfortable again today -pain controlled since 01/09 increase in fentanyl patch. continue prn oxycodone. -continue zyprexa 2.5mgs BID per hospice recommendation. -disposition - not safe at home alone, dispo has been difficult, but pt safe/comfortable here Decubitus ulcer - per Nursing protocol protocol Additional per resident documentation Subjective Patient is 63 yo F w/ a PMHx of bipolar d/o, HLD, Hx of [place], COPD, metastatic pancreatic cancer, hepatitis B, hepatitis C, arthritis who presented to the hospital for admission for hospice care. Patient seen at bedside this morning, oriented only to self, very confused - no changes today, resting comfortably. Review of Systems Review of Systems: as per HPI Physical Exam Physical Exam: Constitutional: WD/WN, vitals as a marko Psychiatric: AOx1, speech with loose association s, brighter affect Results & Data Results & Data Vital Signs (Past 12 Hours) Vital Signs O2 Del Method 01/22/24 23:00 Room Air Resident Activity Tracking Resident Involvement: Resident Care Provided Care Provided: Adult Hospital Medicine (4) Abdominal pain Abdominal location: unspecified location Qualified Code(s): R10.9 - Unspecified abdominal pain (5) COPD (chronic obstructive pulmonary disease) COPD type: unspecified COPD Qualified Code(s): J44.9 - Chronic obstructive pulmonary disease, unspecified
--- NOTE | 2024-01-23 18:26 | Billing Data ---
Date of Service January 23, 2024 Coding Level of Care Code 06961 SUB INP/OBS CARE
--- NOTE | 2024-01-24 07:40 | Hospitalist Progress Note ---
Date of Service January 24, 2024 Assessment & Plan (1) Admission for hospice care: (2) Cancer related pain: (3) Metastasis from pancreatic cancer: (4) Abdominal pain: (5) COPD (chronic obstructive pulmonary disease): (6) History of [place] (myocardial infarction): (7) Bipolar disorder: Plan 63 y/o F (Goes by [facility]) presented to the ER via EMS sent in by hospice for hospice admission for pain control as unable to get this under control at home despite Fentanyl patch and hydromorphone PO. Referred here by Dr. Hoffmann since she lives alone and has no local support and was concerned about inability to care for self in regards to medication self dispensing. Pending placement. Not safe for return home. 1) Cancer related pain and admission for hospice care - Continue current medication regimen: TD-fentanyl 100 mcg + Oxycodone (5 mg, q4hr, PO, PRN) for breakthrough pain Dexamethasone 4 mg qam Ativan, 0.5 mg, PO, TID - Continue Zofran 8mgs TID prn for nausea, Haldol 1mg prn if zofran not effective. - Continue Miralax 17mg, TID, PRN; milk of magnesia 5mL prn; hyoscyamine 0.125mg q4, PRN; senna 17.2mg, PO, BID, PRN - Glycopyrrolate prn for secretions - [facility] following. Pending placement - [facility] following. 2) Pancreatic cancer - Diagnosed about 1 year ago - Was previously on chemotherapy - Percutaneous tube placed previously for drainage of pancreatic cancer cyst 3) COPD - DuoNebs 3mL prn - Flonase 1 spray QD - Stiolto Respimat 1 puff daily 4) CAD/[place] - Continue home meds carvedilol 3.125mg BID, ranolazine ER 500mg BID, losartan 25mg QD 5) H/o Bipolar Disorder, Delirium: - Continue Lexapro 10mg daily + Zyprexa 2.5mg BID as recommended by Dr. Hoffmann 6)Decubitus Ulcer: - Sacral decubitus ulcer, nursing to manage as appropriate. Code status: DNR/DNI Disposition: Med-Surg FENGI: Regular, soft and bite-sized diet Admission and Anticipated Discharge Date Admission Date: December 20, 2023 Supervising Physician Co-Signing Physician Notes I personally examined the patient and verified all pak points of history and exam, discussed case, and agree with decision making with Dr Turner resting in bed. no new issues. hospice nurse at bedside Vitals noted, breathing unlabored. nad. breathing unlabored no accessory muscles good effort skin no rashes no pallor or icterus Not oriented to time/place. Pancreatic cancer with intractable abdominal pain Delirium -Continue comfort measures, overall appears comfortable again today -pain controlled since 01/09 increase in fentanyl patch. continue prn oxycodone. -continue zyprexa 2.5mgs BID per hospice recommendation. -disposition - not safe at home alone, dispo has been difficult, but pt safe/comfortable here, conitnue current care Decubitus ulcer - per Nursing protocol protocol Additional per resident documentation Subjective Patient is 63 yo F w/ a PMHx of bipolar d/o, HLD, Hx of [place], COPD, metastatic p ancreatic cancer, hepatitis B, hepatitis C, arthritis who presented to the hospital for admission for hospice care. Patient seen at bedside this morning, oriented only to self, very confused - no changes today, resting comfortably. Review of Systems Review of Systems: as per HPI Physical Exam Physical Exam: Constitutional: WD/WN, vitals as a marko Psychiatric: AOx1, speech with loose association s Resident Activity Tracking Resident Involvement: Resident Care Provided Care Provided: Adult Hospital Medicine (4) Abdominal pain Abdominal location: unspecified location Qualified Code(s): R10.9 - Unspecified abdominal pain (5) COPD (chronic obstructive pulmonary disease) COPD type: unspecified COPD Qualified Code(s): J44.9 - Chronic obstructive pulmonary disease, unspecified
--- NOTE | 2024-01-24 18:01 | Billing Data ---
Date of Service January 24, 2024 Coding Level of Care Code 32685 SUB INP/OBS CARE
[2024-01-25 07:19] VITALS: RESP 16; TEMP 98.1
--- NOTE | 2024-01-25 07:47 | Hospitalist Progress Note ---
Date of Service January 25, 2024 Assessment & Plan (1) Admission for hospice care: (2) Cancer related pain: (3) Metastasis from pancreatic cancer: (4) Abdominal pain: (5) COPD (chronic obstructive pulmonary disease): (6) History of [place] (myocardial infarction): (7) Bipolar disorder: Plan 63 y/o F (Goes by [facility]) presented to the ER via EMS sent in by hospice for hospice admission for pain control as unable to get this under control at home despite Fentanyl patch and hydromorphone PO. Referred here by Dr. Hoffmann since she lives alone and has no local support and was concerned about inability to care for self in regards to medication self dispensing. Pending placement. Not safe for return home. 1) Cancer related pain and admission for hospice care - Continue current medication regimen: TD-fentanyl 100 mcg + Oxycodone (5 mg, q4hr, PO, PRN) for breakthrough pain Dexamethasone 4 mg qam Ativan, 0.5 mg, PO, TID - Continue Zofran 8mgs TID prn for nausea, Haldol 1mg prn if zofran not effective. - Continue Miralax 17mg, TID, PRN; milk of magnesia 5mL prn; hyoscyamine 0.125mg q4, PRN; senna 17.2mg, PO, BID, PRN - Glycopyrrolate prn for secretions - [facility]ospice following. Pending placement - CM following. 2) Pancreatic cancer - Diagnosed about 1 year ago - Was previously on chemotherapy - Percutaneous tube placed previously for drainage of pancreatic cancer cyst 3) COPD - DuoNebs 3mL prn - Flonase 1 spray QD - Stiolto Respimat 1 puff daily 4) CAD/[place] - Continue home meds carvedilol 3.125mg BID, ranolazine ER 500mg BID, losartan 25mg QD 5) H/o Bipolar Disorder, Delirium: - Continue Lexapro 10mg daily + Zyprexa 2.5mg BID as recommended by Dr. Hoffmann 6)Decubitus Ulcer: - Sacral decubitus ulcer, nursing to manage as appropriate. Code status: DNR/DNI Disposition: Med-Surg FENGI: Regular, soft and bite-sized diet Admission and Anticipated Discharge Date Admission Date: December 20, 2023 Supervising Physician Co-Signing Physician Notes I personally examined the patient and verified all pak points of history and exam, discussed case, and agree with decision making with Dr Markell Martinez resting in bed. no new issues. appears comfortable Vitals noted, breathing unlabored. nad. breathing unlabored no accessory muscles good effort skin no rashes no pallor or icterus Not oriented to time/place. Pancreatic cancer with intractable abdominal pain Delirium -Continue comfort measures, overall appears comfortable again today -pain controlled since 01/09 increase in fentanyl patch. continue prn oxycodone. -continue zyprexa 2.5mgs BID per hospice recommendation. -disposition - not safe at home alone, dispo has been difficult, but pt safe/comfortable here, continue current care Decubitus ulcer - per Nursing protocol protocol Additional per resident documentation Subjective Patient seen at bedside this morning. Resting comfortably. Oriented only to self. Refers pain is control Review of Systems Review of Systems: as per HPI Physical Exam Physical Exam: Alert and oriented to self. No respiratory distress. Results & Data Results & Data Vital Signs (Past 12 Hours) Vital Signs Temp Pulse Resp BP Pulse Ox O2 Del Method 01/25/24 07:18 36.7 C 107 H 16 94/71 L 98 Room Air Resident Activity Tracking Resident Involvement: Resident Care Provided Care Provided: Adult Hospital Medicine (4) Abdominal pain Abdominal location: unspecified location Qualified Code(s): R10.9 - Unspecified abdominal pain (5) COPD (chronic obstructive pulmonary disease) COPD type: unspecified COPD Qualified Code(s): J44.9 - Chronic obstructive pulmonary disease, unspecified
--- NOTE | 2024-01-25 11:44 | Billing Data ---
Date of Service January 25, 2024 Coding Level of Care Code 87027 SUB INP/OBS CARE
[2024-01-26 08:45] VITALS: BP 94/68; PULSE 96; O2SAT 93
--- NOTE | 2024-01-26 09:19 | Hospitalist Progress Note ---
Date of Service January 26, 2024 Assessment & Plan (1) Admission for hospice care: (2) Cancer related pain: (3) Metastasis from pancreatic cancer: (4) Abdominal pain: (5) COPD (chronic obstructive pulmonary disease): (6) History of [place] (myocardial infarction): (7) Bipolar disorder: Plan 63 y/o F (Goes by [facility]) presented to the ER via EMS sent in by hospice for hospice admission for pain control as unable to get this under control at home despite Fentanyl patch and hydromorphone PO. Referred here by Dr. Hoffmann since she lives alone and has no local support and was concerned about inability to care for self in regards to medication self dispensing. Pending placement. Not safe for return home. 1) Cancer related pain and admission for hospice care - Continue current medication regimen: TD-fentanyl 100 mcg + Oxycodone (5 mg, q4hr, PO, PRN) for breakthrough pain Dexamethasone 4 mg qam Ativan, 0.5 mg, PO, TID - Continue Zofran 8mgs TID prn for nausea, Haldol 1mg prn if zofran not effective. - Continue Miralax 17mg, TID, PRN; milk of magnesia 5mL prn; hyoscyamine 0.125mg q4, PRN; senna 17.2mg, PO, BID, PRN - Glycopyrrolate prn for secretions - [facility]ice following. Pending placement - CM following. 2) Pancreatic cancer - Diagnosed about 1 year ago - Was previously on chemotherapy - Percutaneous tube placed previously for drainage of pancreatic cancer cyst 3) COPD - DuoNebs 3mL prn - Flonase 1 spray QD - Stiolto Respimat 1 puff daily 4) CAD/[place] - Continue home meds carvedilol 3.125mg BID, ranolazine ER 500mg BID, losartan 25mg QD 5) H/o Bipolar Disorder, Delirium: - Continue Lexapro 10mg daily + Zyprexa 2.5mg BID as recommended by Dr. Hoffmann 6)Decubitus Ulcer: - Sacral decubitus ulcer, nursing to manage as appropriate. Code status: DNR/DNI Disposition: Med-Surg FENGI: Regular, soft and bite-sized diet Admission and Anticipated Discharge Date Admission Date: December 20, 2023 Supervising Physician Co-Signing Physician Notes I personally examined the patient and verified all pak points of history and exam, discussed case, and agree with decision making with Dr Markell Martinez asleep and appearing comfortable. no problems noted Vitals noted, breathing unlabored. nad. breathing unlabored no accessory muscles good effort skin no rashes no pallor or icterus Not oriented to time/place. Pancreatic cancer with intractable abdominal pain Delirium -Continue comfort measures, has appeared comfortable without new problems or needs for days -pain controlled since 01/09 increase in fentanyl patch. continue prn oxycodone. -continue zyprexa 2.5mgs BID per hospice recommendation. -disposition - not safe at home alone, dispo has been difficult, but pt safe/comfortable here, continue current care Decubitus ulcer - per Nursing protocol protocol Additional per resident documentation Subjective Patient seen at bedside this morning. Resting comfortably. Oriented only to self. Refers pain is control Review of Systems Review of Systems: as per HPI Physical Exam Physical Exam: Alert and oriented to self. No respiratory distress. Results & Data Results & Data Vital Signs (Past 12 Hours) Vital Signs Pulse Resp BP Pulse Ox O2 Del Method 01/26/24 08:42 96 H 16 94/68 L 93 Room Air Resident Activity Tracking Resident Involvement: Resident Care Provided Care Provided: Adult Hospital Medicine (4) Abdominal pain Abdominal location: unspecified location Qualified Code(s): R10.9 - Unspecified abdominal pain (5) COPD (chronic obstructive pulmonary disease) COPD type: unspecified COPD Qualified Code(s): J44.9 - Chronic obstructive pulmonary disease, unspecified
--- NOTE | 2024-01-26 09:57 | Billing Data ---
Date of Service January 26, 2024 Coding Level of Care Code 99743 SUB INP/OBS CARE
--- NOTE | 2024-01-27 07:21 | Hospitalist Progress Note ---
Date of Service January 27, 2024 Assessment & Plan (1) Admission for hospice care: (2) Cancer related pain: (3) Metastasis from pancreatic cancer: (4) Abdominal pain: (5) COPD (chronic obstructive pulmonary disease): (6) History of [place] (myocardial infarction): (7) Bipolar disorder: Plan 63 y/o F (Goes by [facility]) presented to the ER via EMS sent in by hospice for hospice admission for pain control as unable to get this under control at home despite Fentanyl patch and hydromorphone PO. Referred here by Dr. Hoffmann since she lives alone and has no local support and was concerned about inability to care for self in regards to medication self dispensing. Pending placement. Not safe for return home. 1) Cancer related pain and admission for hospice care - Continue current medication regimen: TD-fentanyl 100 mcg + Oxycodone (5 mg, q4hr, PO, PRN) for breakthrough pain Dexamethasone 4 mg qam Ativan, 0.5 mg, PO, TID - Continue Zofran 8mgs TID prn for nausea, Haldol 1mg prn if zofran not effective. - Continue Miralax 17mg, TID, PRN; milk of magnesia 5mL prn; hyoscyamine 0.125mg q4, PRN; senna 17.2mg, PO, BID, PRN - Glycopyrrolate prn for secretions - [facility] Hospice following. Pending placement - CM following. 2) Pancreatic cancer - Diagnosed about 1 year ago - Was previously on chemotherapy - Percutaneous tube placed previously for drainage of pancreatic cancer cyst 3) COPD - DuoNebs 3mL prn - Flonase 1 spray QD - Stiolto Respimat 1 puff daily 4) CAD/[place] - Continue home meds carvedilol 3.125mg BID, ranolazine ER 500mg BID, losartan 25mg QD 5) H/o Bipolar Disorder, Delirium: - Continue Lexapro 10mg daily + Zyprexa 2.5mg BID as recommended by Dr. Hoffmann 6)Decubitus Ulcer: - Sacral decubitus ulcer, nursing to manage as appropriate. Code status: DNR/DNI Disposition: Med-Surg FENGI: Regular, soft and bite-sized diet Admission and Anticipated Discharge Date Admission Date: December 20, 2023 Supervising Physician Co-Signing Physician Notes I personally examined the patient and verified pak points of history and exam, discussed case, and agree with decision making and plan documented by Dr. Cook. Patient resting comfortably in bed. Case management working on bed placement for continued inpatient hospice. Subjective Patient seen and evaluated at bedside this morning. No acute events overnight. Not well oriented. Appears comfortable Review of Systems Review of Systems: reviewed, per HPI Physical Exam Physical Exam: Constitutional: ill-appearing, no acute distress HEENT: NCAT, no conjunctival injection CV: clinically well perfused Resp: gurgling, no increased WOB GI: non-distended MSK: no gross deformities appreciated Skin: warm, dry, no rash appreciated Neuro: alert, mildly interactive, confused Results & Data Results & Data Vital Signs (Past 12 Hours) Vital Signs O2 Del Method 01/26/24 20:00 Room Air Resident Activity Tracking Resident Involvement: Resident Care Provided Care Provided: Adult Hospital Medicine (4) Abdominal pain Abdominal location: unspecified location Qualified Code(s): R10.9 - Unspecified abdominal pain (5) COPD (chronic obstructive pulmonary disease) COPD type: unspecified COPD Qualified Code(s): J44.9 - Chronic obstructive pulmonary disease, unspecified
--- NOTE | 2024-01-28 06:29 | Death Pronouncement Note ---
Date of Service January 28, 2024 Pronouncement Note Admission Date Admission Date: December 20, 2023 Contributing Factors (1) Admission for hospice care: (2) Cancer related pain: (3) Metastasis from pancreatic cancer: (4) Abdominal pain: (5) COPD (chronic obstructive pulmonary disease): (6) History of [place] (myocardial infarction): (7) Bipolar disorder: Summary Additional details: I was called to pronounce the of Aliyah Lewis :1960 by nursing on 01/28/2024. Upon entering the room, the patient was found to be in a terminal state. Patient was unresponsive to verbal and tactile stimuli. Patient unresponsive to corneal and pupillary reflexes. On cardiopulmonary exam, no carotid or radial pulses found and pt without spontaneous heart tones or respirations. Time of was pronounced by me on 01/28/2024 at 06:24. Attending physician was notified. Next of kin was notified by nursing. Additional Data Attending physician: Juanita Fox DO Resident Activity Tracking Resident Involvement: Resident Care Provided Care Provided: Adult [facility] Medicine
[2024-01-28] MEDS ORDERED: DESTROY THIS MEDICATION ONE ×2 (06:30→07:20)
--- NOTE | 2024-01-28 08:13 | Discharge Summary ---
Date of Service January 28, 2024 Admission HPI Per Admitting Provider 63 y/o (Goes by LINK) presents to the ER via EMS sent in by hospice for hospice admission for pain control as unable to get this under control at home despite Fentanyl patch and hydromorphone PO. Referred here by Dr. Hoffmann since she lives alone and has no local support and concern about not able to care for self in regards to medication self dispensing. Please refer to detailed HPI from inpatient admission 12/18 below- Aliyah Lewis, preferred name "LINK", is a 63yo female with history of pancreatic cancer on home hospice, past VA, and COPD who was taken here BIBEMS called by hospice nurse out of concern that pt is not receiving adequate pain meds or care at home. States she has two daughters but one is currently in [place] and the other lives in [place], patient was not willing to provide their contact information at this time. Pt receives hospice care from [facility]. States no one comes to visit her at home anymore, and the last time she had a meal was a day and a half ago. Endorses her appetite has been down for months but feels like she may be able to eat something tonight. Endorses she was diagnosed with pancreatic cancer about a year ago and was previously on chemotherapy, unable to recall any drug names. Notes she also had a "pancreatic cancer cyst" for which a drain in her abdomen was placed about 3-4 weeks ago. States she had a heart attack in 2020 in which a stent was placed, and then again in 2022 in which 4 more stents were placed. Patient was seen and examined at bedside, appearing tired with eyes nearly closed, and uncomfortable with intermittent moaning. Prefers to have lights dim due to light sensitivity. BP and heart rate elevated, other vital signs WNL, on 10L/min via neb. Patient was alert and oriented to name, date of , place "[facility]", and time of year "November." Patient was able to open her eyes on command, fair eye contact, able to track movement well with her eyes. Endorses abdominal pain and lower back pain, as well as shortness of breath but not more than usual for her. Also notes feeling cold despite being bundled up in blankets States her last bowel movement was yesterday, soft but not diarrhea, denies blood. Endorses she is able to urinate without issue. Able to ambulate on her own. Denies any recent fever, current headache, dizziness, nausea, recent vomiting, cough, chest pain, diarrhea, constipation. Admission Exam Per Admitting Provider constitutional: A&Ox3, appearing in moderate distress and tired HEENT: anicteric sclerae, EOM intact cardiovascular: tachycardic regular rhythm, no murmurs heard on auscultation pulmonary: generalized wheezing and coarse breath sounds, mild crackles in left lower lung base GI: medial LUQ abdominal tube with bag, draining brown fluid; hyperactive bowel sounds, tender to palpation of RUQ, epigastric region, LUQ, and LLQ; no guarding or rebound, negative Mayes's sign skin: no rashes or lesions on inspection neuro/MSK: strength 5/5 all extremities, no extremity sensation deficits Principal Diagnosis Pancreatic Cancer Discharge Exam Constitutional: laying motionless in hospital bed HEENT: pupils fixed and dilated CV: no appreciable heart sounds Resp: no chest rise, no breath sounds appreciated Skin: pale, cool to touch Neuro: unresponsive to verbal stimuli and sternal rub Discharge Data Allergies Allergy/AdvReac Type Severity Reaction Status Date / Time aripiprazole Allergy Unknown Verified 12/19/23 20:06 atorvastatin Allergy Unknown Verified 12/19/23 20:06 diazepam Allergy Unknown Verified 12/19/23 20:06 duloxetine [From Cymbalta] Allergy Unknown Verified 12/19/23 20:07 fluoxetine Allergy Unknown Verified 12/19/23 20:06 latex Allergy Unknown Verified 12/19/23 20:06 montelukast Allergy Unknown Verified 12/19/23 20:06 nickel Allergy Unknown Verified 12/19/23 20:06 paroxetine Allergy Unknown Verified 12/19/23 20:06 sertraline Allergy Unknown Verified 12/19/23 20:06 thyroid, pork Allergy Unknown Verified 12/19/23 20:06 varenicline [From Chantix] Allergy Unknown Verified 12/19/23 20:07 Consultations 12/20/23 16:10 Consult Palliative Care Routine Hospital Course (1) Admission for hospice care: (2) Cancer related pain: (3) Metastasis from pancreatic cancer: (4) Abdominal pain: (5) COPD (chronic obstructive pulmonary disease): (6) History of VA (myocardial infarction): (7) Bipolar disorder: Plan 63 y/o F (Goes by [facility]J) presented to the ER via EMS sent in by hospice for hospice admission for pain control as unable to get this under control at home despite Fentanyl patch and hydromorphone PO. Referred here by Dr. Hoffmann since she lives alone and has no local support and was concerned about inability to care for self in regards to medication self dispensing. Pending placement. Not safe for return home. 1) Cancer related pain and admission for hospice care - Continue current medication regimen: TD-fentanyl 100 mcg + Oxycodone (5 mg, q4hr, PO, PRN) for breakthrough pain Dexamethasone 4 mg qam Ativan, 0.5 mg, PO, TID - Continue Zofran 8mgs TID prn for nausea, Haldol 1mg prn if zofran not effective. - Continue Miralax 17mg, TID, PRN; milk of magnesia 5mL prn; hyoscyamine 0.125mg q4, PRN; senna 17.2mg, PO, BID, PRN - Glycopyrrolate prn for secretions - [facility] following. Pending placement - CM following. 2) Pancreatic cancer - Diagnosed about 1 year ago - Was previously on chemotherapy - Percutaneous tube placed previously for drainage of pancreatic cancer cyst 3) COPD - DuoNebs 3mL prn - Flonase 1 spray QD - Stiolto Respimat 1 puff daily 4) CAD/VA - Continue home meds carvedilol 3.125mg BID, ranolazine ER 500mg BID, losartan 25mg QD 5) H/o Bipolar Disorder, Delirium: - Continue Lexapro 10mg daily + Zyprexa 2.5mg BID as recommended by Dr. Hoffmann 6)Decubitus Ulcer: - Sacral decubitus ulcer, nursing to manage as appropriate. Code status: DNR/DNI Disposition: Med-Surg FENGI: Regular, soft and bite-sized diet Total Time Total Time Spent Total Time Spent (In Minutes): see attending documentation Discharge Plan Discharge Items Patient Disposition: Other Date/Time: 01/28/24 06:24 Supervising Physician Co-Signing Physician Notes I personally examined the patient and verified pak points of history and exam, discussed case, and agree with decision making and plan documented by Dr. Cook on 01/27/24. Patient peacefully on [employer] this morning of complications due to her metastatic pancreatic cancer. Resident Activity Tracking Resident Involvement: Resident Care Provided Care Provided: Adult [facility]
== END 2024-01-28 07:20 | disposition expired | DRG 951 ==
LOC: 3E 16:04 → SUATTDRO 16:04